=== PATIENT | female | born 1960 | race Caucasian/White ===

== ENCOUNTER 2024-05-12 12:42 | Outpatient (CLI) | payer BC, SELFPAY ==
--- NOTE | ~2024-05-12 | DEXA_ITS ---
Bone Density Report Name: JUANY VELASQUEZ Age: 63 Sex: Female Ethnicity: White Date of : 1960 Indication: postmenopausal; screening for osteoporosis; height loss; cancer; hysterectomy; Referring Provider: ASHLEY SCHMIDT Study: Bone densitometry was performed. Exam Date: May 12, 2024 Accession number: [id number] Bone Density: Region BMD T-score Z-score Classification AP Spine(L1-L4) 0.976 -0.6 1.1 Normal Femoral Neck (Left) 0.803 -0.4 1.1 Normal Total Hip (Left) 0.899 -0.4 0.9 Normal Femoral Neck (Right) 0.751 -0.9 0.6 Normal Total Hip (Right) 0.919 -0.2 1.0 Normal Total Hip Mean 0.909 -0.3 1.0 Normal World Health Organization criteria for BMD impression classify patients as: Normal (T-score at or above -1.0), Osteopenia (T-score between -1.0 and -2.5), or Osteoporosis (T-score at or below -2.5). 10-year Fracture Risk: FRAX not reported because: All T-scores for Spine Total, Hip Total, Femoral Neck at or above -1.0 Clinical Information Provided by Patient: Has used the following medications: HRT (i.e. estrogen/hormone therapy), Vitamin D, Calcium Has the following medical conditions: Cancer, Hysterectomy Patient maximum height was 63 Menopause Age: 57 No regular weight bearing exercise Does not regularly consume dairy products Drinks caffeinated beverages Onset of menses at age 11 Number of children 3 Impression: The patient has normal bone mass. Discussion: BONE DENSITY IS ABOVE THE MINIMUM DESIRABLE LEVEL AT ALL SKELETAL SITES TESTED. This patient?s bone mineral density is above the minimum desirable level (T-score -1.0 or better) at all sites measured. The patient should follow a healthful lifestyle (good nutrition with adequate calcium and vitamin D, and appropriate weight-bearing exercise). Follow-Up: Consider repeating this study in 5 years or sooner if there is some new clinical indication. Reported by: IVELISSE on 05/12/2024 1:14:00 PM. Reviewed, dictated and finalized at location [facility]
--- OUTSIDE RECORDS SUMMARY | 2024-05-12 12:51 | XMS_ITS ---
Author Organization [facility] Address [address] [place] [address] Care Team Providers Care Ivory Carver Name Role Phone Johnny Ibanez Primary Care Provider [phone] REASON FOR VISIT Lamictal Social History Sex Assigned At : Social History Observation Description Sex Assigned At Female Encounters Encounter Location Date Provider Diagnosis [address] [place] [address] 04/06/2024 Johnny Ibanez Plan Of Treatment No Information Progress Notes * Patricia VELASQUEZ HDOB: 0 (63 yo F)Acc No.[id number]:04/06/2024 Patient: Patricia MEHTA :1960 A ge:63 Y S ex:Female Address:[address] [place] [address], [address] * true * Date: Generated for Delfinai ng/Fatraceg/eTransmitting on: 0 05/12/2024 08:28 AM CONCRETE FLOATER
--- OUTSIDE RECORDS SUMMARY | 2024-05-12 12:51 | XMS_ITS | Encounter Summary ---
Author Organization [facility] Address [address] [place] [address] Care Team Providers Care Info Print Press Operator Name Role Phone Carly Villagomez HACKSAW INSPECTOR Primary Care Provider [phone] Encounter Details Date Type Department Care Team (Late st Contact Info) Description 02/24/2023 MyCCrossover Health Management Servicest Message Enc [facility] Medical Group Family and Sports Medicine - [place] [address] [place] [address] Carly Villagomez, HACKSAW INSPECTOR [address] [place] [address] RSV Injection Social History Tobacco Use Types Packs/Day Years Used Date Smoking Tobacco: Never Smokeless Tobacco: Never Alcohol Use Standard Drinks/Week Comments Not Currently 0 (1 standard drink = 0.6 oz pure alcohol) twice a year, 2 glasses of wine [facility] Utilities Answer Date Recorded In the past 12 months has [facility] [employer], gas, oil, or water [employer] threatened to shut off services in your home? No 02/21/2023 Humiliation, Afraid, Rape, and Kick questionnair e Answer Date Recorded Within the last year, have y ou been afraid of your partner or ex-partner? No 02/21/2023 Within the last year, have y ou been humiliated or emotionally abused in other ways by your partner or ex-partner? No Within the last year, have y ou been kicked, hit, slapped, or otherwise physically hurt by your partner or ex-partner? No 02/21/2023 Within the last year, have y ou been raped or forced to have any kind of sexual activity by your partner or ex-partner? No 02/21/2023 AUDIT-C Answer Date Recorded Frequency of Alcohol Consumption Never 06/27/2018 Average Number of Drinks Not on file 019 Frequency of Binge Drinking Not on file 06/04 Overall Financial Resource Strain (CARDIA) Answe r Date Recorded How hard is it for you to pa y for the very basics like food, housing, medical care, and heating? Not very hard 02/21/2023 PHQ-2 Answer Date Recorded Patient Health Questionnaire-2 Score 1 10/12/2022 Hunger Vital Sign Answer Date Recorded Within the past 12 months, y ou worried that your food would run out before you got the money to buy more. Never true 02/22/20 23 Within the past 12 months, t he food you bought just didn't last and you didn't have money to get more. Never true 02/21/2023 PRAPARE - Transportation Answer Date Re corded In the past 12 months, has l ack of transportation kept you from medical appointments or from getting medications? No 02/03 In the past 12 months, has l ack of transportation kept you from meetings, work, or from getting things needed for daily living? No 02/21/2023 Housing Stability Vital Sign Answer Ortiz e Recorded In the last 12 months, was t here a time when you were not able to pay the mortgage or rent on time? No 02/21/2023 In the last 12 months, how many places have you lived? 1 02/21/2023 In the last 12 months, was t here a time when you did not have a steady place to sleep or slept in a care home (including now)? No 02/21/2023 Comments No Sex and Gender Information Value Date Recorded Sex Assigned at Female 05/02/2024 10:36 AM GOLF COURSE ASSISTANT Legal Sex Female 7:53 PM CDT Gender Identity Not on file Sexual Orientation Not on file Occupation Industry Job Start Date Job End Date former professional volunteer with [employer] Not on blayne e Not on file Not on file documented as of this encounter Functional Status * Are you deaf or do you have serious difficulty hearing Answer Date of Assessment Author Status No 02/22/2023 12:00 PM Olga Ocasio RN Active * Are you blind or do you have serious difficulty seeing, even when wearing glasses? Answer Date of Assessment Author Status No 02/22/2023 12:00 PM Olga Ocasio RN Active * Do you have serious difficulty walking or climbing stairs? Answer Date of Assessment Author Status No 02/22/2023 12:00 PM Olga Ocasio RN Active * Do you have difficulty dressing or bathing? Answer Date of Assessment Author Status No 02/22/2023 12:00 PM Olga Ocasio RN Active * Because of a physical, mental, or emotional condition, do you have difficulty doing errands alone such as visiting a doctor's office or shopping? Answer Date of Assessment Author Status No 02/22/2023 12:00 PM Olga Ocasio RN Active documented as of this encounter Mental Status * Because of a physical, mental, or emotional condition, do you have serious difficulty concentrating, remembering, or making decisions? Answer Entry Date Author Status No 02/22/2023 12:00 PM Olga Ocasio RN Active documented in this encounter Plan of Treatment Upcoming Encounters Date Type Department Care Team (Late st Contact Info) Description 07/10/2024 11:20 AM CDT Office Visit [facility] Medical Group Multispecialty Care - [facility] [address] [place] [address] Rene Sage DO [address] [facility] [place] [address] 08/01/2024 12:30 PM CDT Appointment [facility] [address] [facility] [place] [address] Chay Marshall MD [address] [place] [address] 08/01/2024 1:30 PM CDT Appointment [facility] ONE [facility] [place] [address] Chay Marshall MD [address] [address] 09/26/2024 1:00 PM CDT Office Visit [facility] THREE [facility], [facility] [address] [place], [place] [address] Thien Cooper MD Three [facility]. [facility] [address] [place], [place] [address] documented as of this encounter Goals Goal Patient Goal Type Associated Problems Recent Progress Patient-Stated? Author Patient will return to prior living situation and remain independent in ADLs upon discharge from hospital Lifestyle No Andreea Thomas, TANDEM MILL ROLLER documented as of this encounter Visit Diagnoses Not on filedocumented in this encounter Additional Health Concerns Assessment Noted Time PHQ-9 Depression Total Score: 11 023 4:03 PM CDT documented as of this encounter Care Teams Info Print Press Operator Relationship Specialty Start Date End Date Carly Villagomez HACKSAW INSPECTOR [address] [place] [address] PCP - General Nurse Practitioner Family 11/02/16 documented as of this encounter
--- OUTSIDE RECORDS SUMMARY | 2024-05-12 12:51 | XMS_ITS | Encounter Summary ---
Author Organization [facility] Address [address] [place] [address] Care Team Providers Care Optical Dispenser Name Role Phone Carly Villagomez TELEVISION NEWS REPORTER Primary Care Provider [phone] Encounter Details Date Type Department Care Team (Late st Contact Info) Description 01/30/2022 MyCPieceMaker Technologiest Message Enc [facility] Medical Group Family and Sports Medicine - [place] [address] [place] [address] Carly Villagomez, TELEVISION NEWS REPORTER [address] [place] [address] Following up Social History Tobacco Use Types Packs/Day Years Used Date Smoking Tobacco: Never Smokeless Tobacco: Never Alcohol Use Standard Drinks/Week Comments Yes 1.7 (1 standard drink = 0.6 oz p ure alcohol) only on special occassions AUDIT-C Answer Date Recorded Frequency of Alcohol Consumption Never 06/27/2018 Average Number of Drinks Not on file 019 Frequency of Binge Drinking Not on file 06/04 PHQ-2 Answer Date Recorded PHQ-2 Score - If the patient scores above 3, please move on to questions 3-9 3 02/25/2021 Comments No Sex and Gender Information Value Date Recorded Sex Assigned at Female 05/02/2024 10:36 AM MOTION PICTURE CAMERA LENS TECHNICIAN Legal Sex Female 7:53 PM CDT Gender Identity Not on file Sexual Orientation Not on file COVID-19 Exposure Response Date Recorded In the last 10 days, have yo u been in contact with someone who was confirmed or suspected to have Coronavirus/COVID-19? No / Unsure 01/26/2022 11:32 AM CDT documented as of this encounter Plan of Treatment Upcoming Encounters Date Type Department Care Team (Late st Contact Info) Description 07/10/2024 11:20 AM CDT Office Visit [facility] Medical Group [facility] [address] [place] [address] Rene Sage DO [address] [place] [address] 08/01/2024 12:30 PM CDT Appointment [facility] [address] [facility] [place] [address] Chay Marshall MD 1414 [facility] [address] [place], [place] [address] 08/01/2024 1:30 PM CDT Appointment [facility] [address] Chay Marshall MD 1414 [facility] [address] [place], [place] [address] 09/26/2024 1:00 PM CDT Office Visit [facility] [address] [facility] [address], [place] [address] [place], [place] [address] Thien Cooper MD [facility] [address] [place], [place] [address] documented as of this encounter Visit Diagnoses Not on filedocumented in this encounter Additional Health Concerns Infection Onset Date Last Indicated Resolved Time COVID-19 Rule Out 08/25/2022 08/25/2022 08/26/2022 3:43 PM CDT COVID-19 Confirmed 08/25/2022 09/01/2022 12:32 AM CDT Assessment Noted Time PHQ-9 Depression Total Score: 12 021 2:23 PM MOTION PICTURE CAMERA LENS TECHNICIAN documented as of this encounter Care Teams Optical Dispenser Relationship Specialty Start Date End Date Carly Villagomez TELEVISION NEWS REPORTER [address] [place] [address] PCP - General Nurse Practitioner Family 11/02/16 documented as of this encounter
--- OUTSIDE RECORDS SUMMARY | 2024-05-12 12:51 | XMS_ITS | Encounter Summary ---
Author Organization [facility] Address [address] [place] [address] Care Team Providers Care Chief Digital Media Officer Name Role Phone Carly Villagomez TRACY Primary Care Provider [phone] Encounter Details Date Type Department Care Team (Late st Contact Info) Description 08/11/2023 Intrakr Message Enc [facility] THREE [address] [phone] Thien Cooper MD [address] [phone] Isosorbide Mononitrate Social History Tobacco Use Types Packs/Day Years Used Date Smoking Tobacco: Never Smokeless Tobacco: Never Alcohol Use Standard Drinks/Week Comments Not Currently 0 (1 standard drink = 0.6 oz pure alcohol) twice a year, 2 glasses of wine [facility] Utilities Answer Date Recorded In the past 12 months has [facility] [employer], gas, oil, or water [employer] threatened to shut off services in your [...] place to sleep or slept in a mcfp (including now)? No 02/21/2023 Comments No Sex and Gender Information Value Date Recorded Sex Assigned at Female 05/02/2024 10:36 AM CENTRAL PROCESSING TECH Legal Sex Female 7:53 PM CDT Gender [...] Ocasio RN Active documented in this encounter Progress Notes * RHONA Ribera - 08/11/2023 3:27 PM CDT Imdur is a very common drug to help with angina/chest pain. This was a trial drug to see if it would help her symptoms. MCDONALD is a very common side affect. This was discussed with her. Just like SL NTG.Some people have no issues. If she is having bad headaches from the drug, by all means she can stopit. documented in this encounter Plan of Treatment Upcoming Encounters Date Type Department Care Team (Late st Contact Info) Description 07/10/2024 11:20 AM CDT Office Visit [facility] Medical Group [facility] [address] [place] [address] Rene Sage DO [address] [place] [address] 08/01/2024 12:30 PM CDT Appointment [facility] [place] [address] Chay Marshall MD [facility] [address] [address] 08/01/2024 1:30 PM CDT Appointment [facility] [address] Chay Marshall MD [facility] [address] [address] 09/26/2024 1:00 PM CDT Office Visit [facility] [address] [facility] [address], [place] [address] [place] [address] Thien Cooper MD [facility] [address] [address] documented as of this encounter Goals Goal Patient Goal Type Associated Problems Recent Progress Patient-Stated? Author Patient will return to prior living situation and remain independent in ADLs upon discharge from hospital Lifestyle No Andreea Thomas, MAINFRAME SYSTEMS PROGRAMMER documented as of this encounter Visit Diagnoses Not on filedocumented in this encounter Additional Health Concerns Assessment Noted Time PHQ-9 Depression Total Score: 11 023 4:03 PM CDT documented as of this encounter Care Teams Chief Digital Media Officer Relationship Specialty Start Date End Date Carly Villagomez, PIPE AND BOILER COVERS SUPERVISOR [address] [place] [address], [place] [address] PCP - General Nurse Practitioner Family 11/02/16 documented as of this encounter
--- OUTSIDE RECORDS SUMMARY | 2024-05-12 12:51 | XMS_ITS ---
Author Organization [facility] Address [address] [place] [address] Care Team Providers Care Detailer School Photographs Name Role Phone Johnny Ibanez Primary Care Provider [phone] REASON FOR VISIT 6 Week Psych F/U & Med Refill Social History Sex Assigned At : Social History Observation Description Sex Assigned At Female Encounters Encounter Location Date Provider Diagnosis [address] [place] [address] 05/01/2024 Johnny Ibanez Plan Of Treatment No Information Progress Notes * RON Patricia HDOB: 0 (63 yo F)Acc No.[id number]:05/01/2024 UNLOCKED PROGRESS NOTE Patient: Patricia MEHTA Provider: Kelli Ibanez DNP, PMGALINDOP-BC :1960 A ge:63 Y S ex:Female Date:05/01/2024 Address:[address] [place], [place] [id number] Subjective: * Chief Complaints: * 1 . 6 Week Psych F/U & Med Refill. * Medical History: Objective: * Vitals: Assessment: Plan: * Treatment: * * Electronic signature of Johnny Ibanez APRN, [id number] on 05/12/2024 at 08:28 AM SERVICE ARCHITECT Sign off status: Pending * Provider: Kelli Ibanez DNP, PMHNP-BC Date: 0 05/01/2024 Generated for Nelson renner/Carissa/Luz Marina on: 0 05/12/2024 08:28 AM SERVICE ARCHITECT
--- OUTSIDE RECORDS SUMMARY | 2024-05-12 12:51 | XMS_ITS | Encounter Summary ---
Author Organization [facility] Address [address] [place] [address] Care Team Providers Care Supervisor Paper Products Name Role Phone HernandoCarly TRACY Primary Care Provider [phone] Encounter Details Date Type Department Care Team (Late st Contact Info) Description 07/15/2021 Kinkaa Search Tools Message Enc [facility], [address] [address] [facility] Provider results Social History Tobacco Use Types Packs/Day Years [...] Sex Assigned at Female 05/02/2024 10:36 AM ATTENUATOR Legal Sex Female 7:53 PM CDT Gender Identity Not on file Sexual Orientation Not on file COVID-19 Exposure Response Date Recorded In the last 10 days, have yo u been in contact with someone who was confirmed or suspected to have Coronavirus/COVID-19? No / Unsure 07/15/2021 1:58 PM CDT documented as of this encounter Plan of Treatment Upcoming Encounters Date Type Department Care Team (Late st Contact Info) Description 07/10/2024 11:20 AM CDT Office Visit [facility] Medical Group [facility] [address] [place] [address] Rene Sage DO [address] [place] [address] 08/01/2024 12:30 PM CDT Appointment [facility] [address] [place] [address] Chay Marshall MD [address] [address] 08/01/2024 1:30 PM CDT Appointment [facility] [address] [place] [address] Chay Marshall MD [facility] [address] [place], [place] [address] 09/26/2024 1:00 PM CDT Office Visit [facility] [address], [address] [place] [address] Thien Cooper MD [address] [facility] [address] [place], [place] [address] documented as of this encounter Visit Diagnoses Not on filedocumented in this encounter Additional Health Concerns Infection Onset Date Last Indicated Resolved Time COVID-19 Rule Out 01/26/2022 01/26/2022 01/26/2022 3:05 PM CDT COVID-19 Rule Out 01/26/2022 01/26/2022 01/27/2022 6:32 PM CDT COVID-19 Rule Out 08/25/2022 08/25/2022 08/26/2022 3:43 PM CDT COVID-19 Confirmed 08/25/2022 09/01/2022 12:32 AM CDT Assessment Noted Time PHQ-9 Depression Total Score: 12 021 2:23 PM ATTENUATOR documented as of this encounter Care Teams Supervisor Paper Products Relationship Specialty Start Date End Date Carly Villagomez NP [address] [place] [address] PCP - General Nurse Practitioner Family 11/02/16 documented as of this encounter
--- OUTSIDE RECORDS SUMMARY | 2024-05-12 12:51 | XMS_ITS | Encounter Summary ---
Author Organization [facility] Address [address] [place] [address] Care Team Providers Care Pasteurizer Helper Name Role Phone Carly Villagomez EMPLOYEE COMMUNICATIONS MANAGER Primary Care Provider [phone] Encounter Details Date Type Department Care Team (Late st Contact Info) Description 09/30/2021 MyChart Message Enc [facility] Medical Group Family and Sports Medicine - [place] [address] [place] [address] Carly Villagomez, EMPLOYEE COMMUNICATIONS MANAGER [address] [place] [address] Referral request Social History Tobacco Use Types Packs/Day Years [...] Sex Assigned at Female 05/02/2024 10:36 AM WIND TURBINE MECHANIC Legal Sex Female 7:53 PM CDT Gender Identity Not on file Sexual Orientation Not on file COVID-19 Exposure Response Date Recorded In the last 10 days, have phillip u been in contact with someone who was confirmed or suspected to have Coronavirus/COVID-19? No / Unsure 09/15/2021 1:49 AM CDT documented as of this encounter Progress Notes * Carly Villagomez NP - 10/01/2021 9:28 PM CDT OV documented in this encounter Plan of Treatment Upcoming Encounters Date Type Department Care Team (Late st Contact Info) Description 07/10/2024 11:20 AM CDT Office Visit [facility] Medical Group [facility]pecialty Care - [facility] [address] [facility] [place] [address] Rene Sage DO [address] [place] [address] 08/01/2024 12:30 PM CDT Appointment [facility] [address] [facility] [place] [address] Chay Marshall MD [facility] [address] [address] 08/01/2024 1:30 PM CDT Appointment [facility] [address] [facility] [address] Chay Marshall MD [facility] [address] [address] 09/26/2024 1:00 PM CDT Office Visit [facility] [address], [address] [address] [place] [address] Thien Cooper MD [address] [address] documented as of this encounter Visit Diagnoses [...] Depression Total Score: 12 021 2:23 PM WIND TURBINE MECHANIC documented as of this encounter Care Teams Pasteurizer Helper Relationship Specialty Start Date End Date Carly Villag[place] [address] PCP - General Nurse Practitioner Family 11/02/16 documented as of this encounter
--- OUTSIDE RECORDS SUMMARY | 2024-05-12 12:51 | XMS_ITS | Encounter Summary ---
Author Organization [facility] Address [address] [place] [address] Care Team Providers Care Postdoctoral Scholar Name Role Phone HernandoCarly TRACY Primary Care Provider [phone] Encounter Details Date Type Department Care Team (Late st Contact Info) Description 01/08/2022 Digital Domain Holdings Message Enc [facility], [address] [address] [place], [facility] Provider Results Social History Tobacco Use Types Packs/Day Years [...] Sex Assigned at Female 05/02/2024 10:36 AM INTERIOR ASSEMBLIES INSTALLER Legal Sex Female 7:53 PM CDT Gender Identity Not on file Sexual Orientation Not on file COVID-19 Exposure Response Date Recorded In the last 10 days, have yo u been in contact with someone who was confirmed or suspected to have Coronavirus/COVID-19? No / Unsure 01/07/2022 12:57 PM CDT documented as of this encounter Plan of Treatment Upcoming Encounters Date Type Department Care Team (Late st Contact Info) Description 07/10/2024 11:20 AM CDT Office Visit [facility] Medical Group [facility] [address] [place] [address] Rene Sage DO [address] [place] [address] 08/01/2024 12:30 PM CDT Appointment [facility] [address] [place] [address] Chay Marshall MD [address] [address] 08/01/2024 1:30 PM CDT Appointment [facility] [place] [address] Chay Marshall MD [facility] [address] [place], [place] [address] 09/26/2024 1:00 PM CDT Office Visit [facility] [address] [place] [address] Thien Cooper MD [address] [facility] [address] [place], [place] [address] documented as of this encounter Visit Diagnoses [...] Depression Total Score: 12 021 2:23 PM INTERIOR ASSEMBLIES INSTALLER documented as of this encounter Care Teams Postdoctoral Scholar Relationship Specialty Start Date End Date Carly Villagomez NP [address] [place] [address] PCP - General Nurse Practitioner Family 11/02/16 documented as of this encounter
--- OUTSIDE RECORDS SUMMARY | 2024-05-12 12:51 | XMS_ITS ---
Author Organization [facility] Address [address] [place] [address] Care Team Providers Care Boot Liner Maker Name Role Phone Johnny Ibanez Primary Care Provider [phone] Allergies Allergen (clinical drug ingredient) Drug/Non Drug Allergy documented on EMR Reaction Allergy Type Onset Date Status Effexor Unknown Drug Allergy Active nisoldipine Sular Unknown Drug Allergy Activ e carbamazepine Tegretol Unknown Drug Allergy Act allison tramadol Tramadol Unknown Drug Allergy Active trazodone Trazodone Unknown Drug Allergy Active REASON FOR VISIT last seen 11/10/23--2 month f u Medications Medication SIG (Take, Route, Frequency, Duration) Notes Start Date End Date Status lamoTRIgine 150 MG 1 tablet twice a day for 30 days Active diazePAM 2 MG 1 tablet as needed Orally twice a day for 30 days As needed for severe anxiety or panic attacks 02/22/2024 Active Eliquis 5 MG 1 tablet Orally Tw e a day 02/21/2023 Active Tamoxifen Citrate 10 MG 1 tablet Orally Twice a day Active Metoprolol Tartrate 25 MG 1 tablet with food Orally Twice a day 02/21/2023 Active Megestrol Acetate 40 MG 1 tablet Orally Four times a day Not-Taking Potassium Chloride ER 10 MEQ 1 tablet with food Orally once per day for 30 day(s) Active HYDROcodone-Acetaminophen 5-325 MG 1 tablet as needed Orally every 6 hrs Active Lurasidone HCl 20 MG 0.5 tablet in the evening with food Orally Once a day for 30 days 02/22/2024 Active DULoxetine HCl 30 MG 1 capsule twice a d ay for 30 days Active Furosemide 20 MG 1 tablet Orally Once a day for 30 day(s) Active Nitroglycerin 0.4 MG as directed Sublingual Active DULoxetine HCl 30 MG 1 capsule Orally Tw ice a day for 30 days 08/17/2023 Active Ezetimibe 10 MG 1 tablet Orally Once a day for 30 day(s) Active Aspirin 81 MG 1 tablet Orally Once a day for 30 day(s) Active Rosuvastatin Calcium 40 MG 1 tablet Oral ly Once a day for 30 day(s) Active Social History Sex Assigned At : Social History Observation Description Sex Assigned At Female Problems Problem Type SNOMED Code ICD Code Onset Dates Problem Status W/U Status Risk Notes Problem Generalized anxiety disorder (62743295) TRACE (generalized anxiety disorder) (F41.1) Active confirmed Encounters Encounter Location Date Provider Diagnosis [address] [place] [address] 02/22/2024 Johnny Ibanez Bipolar II disorder F31.81 and TRACE (generalized anxiety disorder) F41.1 Assessments Encounter Date Diagnosis (ICD Code) Assessment Notes Treatment Notes Treatment Clinical Notes Section Notes 02/22/2024 Bipolar II disorder (ICD-10 - F31.81) Client with high levels of anxiety regarding medical health issues (ongoing) r/t cancer and tx surrounding it and her chronic back pain. Discussed starting low dose lurasidone as she was doing well with anxiety on olanzapine for many years but was taken off due to wt gain. Client open to this and starting at low dose 10 mg. Rescue anxiety med of diazepam 2 mg BID PRN written for as client goes through process of applying for back stimulator and the anxiety surrounding this. 02/22/2024 TRACE (generalized anxiety disorder) (ICD-10 - F41.1) Client with high levels of anxiety regarding medical health issues (ongoing) r/t cancer and tx surrounding it and her chronic back pain. Discussed starting low dose lurasidone as she was doing well with anxiety on olanzapine for many years but was taken off due to wt gain. Client open to this and starting at low dose 10 mg. Rescue anxiety med of diazepam 2 mg BID PRN written for as client goes through process of applying for back stimulator and the anxiety surrounding this. 02/22/2024 Other Discussed sleep hygiene and caffeine intake with encouragement to limit electronic devices an hour before bed and to limit caffeine after 3:00pm. Exercise benefits for mood and health discussed. Psychoeducation regarding psychiatric illness provided. Client was educated about risks and benefits of medication, alternatives to medication, off label uses of medication, suicidal ideation with SSRIs, self-administrati on and compliance with medication along with how to safely store medication. Verbal informed consent obtained. Client agrees to return sooner if symptoms worsen or if suicidal or homicidal ideations occur. Client has the phone number to the 24-hour crisis line at [facility]. Questions addressed. Client verbalized understanding of all information and is agreeable to treatment plan. Client with high levels of anxiety regarding medical health issues (ongoing) r/t cancer and tx surrounding it and her chronic back pain. Discussed starting low dose lurasidone as she was doing well with anxiety on olanzapine for many years but was taken off due to wt gain. Client open to this and starting at low dose 10 mg. Rescue anxiety med of diazepam 2 mg BID PRN written for as client goes through process of applying for back stimulator and the anxiety surrounding this. Plan Of Treatment Medication Medication Name Sig Start Date Stop Date Notes lamoTRIgine 150 MG 1 tablet twice a day for 30 days diazePAM 2 MG 1 tablet as needed O rally twice a day for 30 days 02/22/2024 Lurasidone HCl 20 MG 0.5 tablet in the e vening with food Orally Once a day for 30 days 02/22/2024 DULoxetine HCl 30 MG 1 capsule Orally Tw ice a day for 30 days 08/17/2023 Treatment Notes Assessment Notes Other Discussed sleep hygi alyssa and caffeine intake with encouragement to limit electronic devices an hour before bed and to limit caffeine after 3:00pm. Exercise benefits for mood and health discussed. Psychoeducation regarding psychiatric illness provided. Client was educated about risks and benefits of medication, alternatives to medication, off label uses of medication, suicidal ideation with SSRIs, self-administration and compliance with medication along with how to safely store medication. Verbal informed consent obtained. Client agrees to return sooner if symptoms worsen or if suicidal or homicidal ideations occur. Client has the phone number to the 24-hour crisis line at [facility]. Questions addressed. Client verbalized understanding of all information and is agreeable to treatment plan. Next Appt Details Follow Up: 6 Weeks, Reason: Medication management - can be telehealth appt. or in office appt. Progress Notes * Patricia VELASQUEZ HDOB: 0 (63 yo F)Acc No.[id number]:02/22/2024 Patient: Patricia MEHTA Provider: Kelli Ibanez DNP, PMHNP- :1960 A ge:63 Y S ex:Female Date:02/22/2024 Address:[address] [place], [place] [id number] Subjective: * Chief Complaints: * L ast seen 11/10/23--2 month f u * HPI: I nterim History: Emergency room visit Y es. W as hospitalized N o.? D epression Screening: PHQ-9 L ittle interest or pleasure in doing things S everal days, F eeling down, depressed, or hopeless S everal days, T rouble falling or staying asleep, or sleeping too much S everal days, F eeling tired or having little energy S everal days, P oor appetite or overeating N ot at all, F eeling bad about yourself or that you are a failure, or have let yourself or your family down S everal days, T rouble concentrating on things, such as reading the newspaper or watching television S everal days, M oving or speaking so slowly that other people could have noticed; or the opposite, being so fidgety or restless that you have been moving around a lot more than usual N ot at all, T houghts that you would be better off or of hurting yourself in some way N ot at all, T otal Score?6, I nterpretation M ild Depression. C SSRS Interpretation and Follow Up Plan: CSSRS Interpretation and Follow Up Plan. CSSRS Interpretation and Follow Up Plan M oderate or High risk requires selection of a follow up plan C SSRS No/Low: intervention not needed at this time.? C onstitutional: Session conducted telephonically with client's consent. The patient has been dealing with two major health issues over the past couple of months. 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 This has caused her kidney to take five times longer to empty into the bladder. Her doctors initially referred to the growth as cancer, but the client states that later it was not referred to ast this. The patient has been consulting with various doctors to figure out what to do. One doctor suggested placing a stent in her ureter, which would need to be replaced every three to six months. However, the patient is not comfortable with this idea and has been looking for other options. The second issue is chronic back pain, which started after a fall in 2019. The patient has been seeing a pain management doctor who has been giving her nerve blocks. However, the relief from these blocks has been temporary and inconsistent. The doctor has now decided to close her case and refer her to a outside plant supervisor. In the meantime, the patient has been managing her pain with Tylenol, as she is on Eliquis and cannot take other pain medications. Recently, a hostess party sales representative from [employer] suggested a spinal column stimulator as a potential solution for her back pain. The device would send electrical stimuli to the nerves where the pain is located, blocking the pain signals. However, the patient would need to pass a psychological test to determine if she can handle the process and recovery. The patient is interested in this option but is concerned about her anxiety, which has been increasing due to her health issues. Client states her family settled now into [facility] one floor home for a while and that her and son. That she has been getting settled in it. That this was really exciting and that she feels really happy about it. But regardless it was still pretty stressful. That she hadn't moved in decades. Denies SI/HI, +mild depression at times, moderate to high anxiety at times, denies hallucinations/paranoia. 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 Lives with and 36 yo son. 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 [place] she was sleeping too much and was fatigued during the day. All psychiatric medications changed to split BID dosing and this has helped client quite a bit . Still occasionally has thoughts that she would rather be than go through treatment but feels these have lessened. Is doing a support group for her type of cancer on Face[employer] and is finding this helpful. Was on lithium in the past and stopped due to shaking. * ROS: P sych ROS: Constitutional R eports, h x cancer- received radiation . E yes R eports, h x glaucoma and detatched retina; hx of multiple eye surgeries .?Ears/Nose/Mouth/Throat R eports. G U R eports, h ysterectomy, recently dx uterine ca with mets (feb, 2022). M usculoskeletal R eports, a rthritis, damaged discs (dx november 2021). * PSYCH ROS2: Elevated mood symptoms D enies. m ood swings D enies. T houghts of self harm D enies. D enies H omicidal thoughts. A dmits A nxiety, t hat is moderate to moderately severe at times. D enies A uditory/visual hallucinations. D enies D elusions. A dmits D epressed mood, w hich is mild. A dmits S tressors, h ealth. D enies S ubstance abuse. D enies S uicidal thoughts. * Medical History: * Surgical History: h ysterectomy for cancer 2018 * Hospitalization/Major Diagno stic Procedure: h ysterectomy for cancer 2018 * Family History: F ather: alive. M other: alive. 3 brother(s) , 1 sister(s) - healthy. 2 son(s) , 1 daughter(s) - healthy. . * Social History: P rimary Social History: L iving Arrangement L iving Arrangement: I ndependent Living, Dependent Living, L iving with: O ther:, I s this a supportive environment? Y es. A lcohol Use A lcohol Use Frequency: N ever. I llicit Substance Usage I llicit Substance Usage: N o.?Employment Status E mployment Status: U nemployed. * Medications: T akingTamoxifen Citrate 10 MG Tablet 1 tablet Orally Twice a day Metoprolol Tartrate 25 MG Tablet 1 tablet with food Orally Twice a day Eliquis 5 MG Tablet 1 tablet Orally Twice a day Rosuvastatin Calcium 40 MG Tablet 1 tablet Orally Once a day Ezetimibe 10 MG Tablet 1 tablet Orally Once a day Aspirin 81 MG Tablet Delayed Release 1 tablet Orally Once a day Furosemide 20 MG Tablet 1 tablet Orally Once a day Nitroglycerin 0.4 MG Tablet Sublingual as directed Sublingual Potassium Chloride ER 10 MEQ Tablet Extended Release 1 tablet with food Orally once per day HYDROcodone-Acetaminophen 5-325 MG Tablet 1 tablet as needed Orally every 6 hrs DULoxetine HCl 30 MG Capsule Delayed Release Particles 1 capsule Orally Twice a day DULoxetine HCl 30 MG Capsule Delayed Release Particles 1 capsule twice a day lamoTRIgine 150 MG Tablet 1 tablet twice a day Taking Tamoxifen Citrate 10 MG Tablet 1 tablet Orally Twice a day Taking Metoprolol Tartrate 25 MG Tablet 1 tablet with food Orally Twice a day Taking Eliquis 5 MG Tablet 1 tablet Orally Twice a day Taking Rosuvastatin Calcium 40 MG Tablet 1 tablet Orally Once a day Taking Ezetimibe 10 MG Tablet 1 tablet Orally Once a day Taking Aspirin 81 MG Tablet Delayed Release 1 tablet Orally Once a day Taking Furosemide 20 MG Tablet 1 tablet Orally Once a day Taking Nitroglycerin 0.4 MG Tablet Sublingual as directed Sublingual Taking Potassium Chloride ER 10 MEQ Tablet Extended Release 1 tablet with food Orally once per day Taking HYDROcodone-Acetaminophen 5-325 MG Tablet 1 tablet as needed Orally every 6 hrs Taking DULoxetine HCl 30 MG Capsule Delayed Release Particles 1 capsule Orally Twice a day Taking DULoxetine HCl 30 MG Capsule Delayed Release Particles 1 capsule twice a day Taking lamoTRIgine 150 MG Tablet 1 tablet twice a day Not- TakingMegestrol Acetate 40 MG Tablet 1 tablet Orally Four times a day Not-Taking Megestrol Acetate 40 MG Tablet 1 tablet Orally Four times a day * Allergies: T ramadolTrazodoneEffexorSularTegretolno[Allergies Verified] Objective: * Vitals: * Examination: G eneral Examination: Mental Status Exam . Assessment: * Assessment: 1. B ipolar II disorder - F31.81 (Primary) 2 . G AD (generalized anxiety disorder) - F41.1 Client with high levels of a nxiety regarding medical health issues (ongoing) r/t cancer and tx surrounding it and her chronic back pain. Discussed starting low dose lurasidone as she was doing well with anxiety on olanzapine for many years but was taken off due to wt gain. Client open to this and starting at low dose 10 mg. Rescue anxiety med of diazepam 2 mg BID PRN written for as client goes through process of applying for back stimulator and the anxiety surrounding this. Plan: * Treatment: 2. G AD (generalized anxiety disorder) Start diazePAM Tablet, 2 MG, 1 tablet as needed, Orally, twice a day As needed for severe anxiety or panic attacks, 30 days, 60 Tablet, Refills 1. 3. O thers Notes: Discussed sleep hygiene and caffeine intake with encouragement to limit electronic devices an hour before bed and to limit caffeine after 3:00pm. Exercise benefits for mood and health discussed. Psychoeducation regarding psychiatric illness provided. Client was educated about risks and benefits of medication, alternatives to medication, off label uses of medication, suicidal ideation with SSRIs, self-administration and compliance with medication along with how to safely store medication. Verbal informed consent obtained. Client agrees to return sooner if symptoms worsen or if suicidal or homicidal ideations occur. Client has the phone number to the 24-hour crisis line at [facility]. Questions addressed. Client verbalized understanding of all information and is agreeable to treatment plan.? * Recommended Wellness and Pre vention Guidelines: * S tatus A lert L ast Done N ext Due A ction Taken N ONCOMPLIANT B reast cancer screening - 1 04/23/2023 - N ONCOMPLIANT C ervical cancer screening - 1 04/23/2023 - N ONCOMPLIANT C olorectal cancer screening - 1 04/23/2023 - N ONCOMPLIANT H IV screening - 1 04/23/2023 - * Procedure Codes: * Follow Up: 6 Weeks (Reason: Medication management - can be telehealth appt. or in office appt.) * * FOUNDER [employer] CEO Sign off status: Completed true * Provider: Kelli Ibanez DNP, PMHNP- Date: 04/23/2023 Generated for Nelson renner/Carissa/Britneyitting on: 0 05/12/2024 12:51 PM CO FOUNDER AND CEO History and Physical Notes * HPI (History of Present Illness) Category Sub-Category Detail Notes Category Not es Interim History Was hospitalized No Emergency room visit Yes Depression Screening PHQ-9 Little inte rest or pleasure in doing things: Several days Feeling down, depressed, or hopeless: Se veral days Trouble falling or staying asleep, or sl eeping too much: Several days Feeling tired or having little energy: S everal days Poor appetite or overeating: Not at all Feeling bad about yourself o r that you are a failure, or have let yourself or your family down: Several days Trouble concentrating on thi ngs, such as reading the newspaper or watching television: Several days Moving or speaking so slowly that other people could have noticed; or the opposite, being so fidgety or restless that you have been moving around a lot more than usual: Not at all Thoughts that you would be b abbe off or of hurting yourself in some way: Not at all Total Score: 6 Interpretation: Mild Depression Do Not Use CSSRS Interpretation and Follow Up Plan CSSRS Interpretation and Follow Up Plan Moderate or High risk requires selection of a follow up plan: CSSRS No/Low: intervention not needed at this time Examination Category Sub-Category Detail Notes Category Not es General Examination Mental Status Exam Attitude and Behavior: Cooperative Mood: Stable, Euthymic, Anxious Affect: Broad/Full Speech: Appropriate Thought Process: Coherent and Goal Direc presley Hallucinations: Denies Thought Content: Appropriate Delusions: None Evident or Identified Suicidal Ideation: Denies Current Though ts/Plans Homicidal Ideation: Denies Current Inten t Insight: Appropriate Judgement: Appropriate Sensorium and Cognition: Alert Oriented to: Person, Place, Time Memory: Intact Attention and Concentration: No Deficits Fund of Knowledge: Good
--- OUTSIDE RECORDS SUMMARY | 2024-05-12 12:51 | XMS_ITS | Encounter Summary ---
Author Organization [facility] Address [address] [place] [address] Care Team Providers Care Therapeutic Radiologist Name Role Phone Carly Villagomez TRACY Primary Care Provider [phone] Encounter Details Date Type Department Care Team (Late st Contact Info) Description 01/07/2021 Digital Map Products Message Enc [facility], [address] [address] Amari Koch MD,PHD RE: Medication Questions Social History Tobacco Use Types Packs/Day Years Used Date Smoking Tobacco: Never Smokeless Tobacco: Never Alcohol Use Standard Drinks/Week Comments Yes 0 (1 standard drink = 0.6 oz pur e alcohol) social AUDIT-C Answer Date Recorded Frequency of Alcohol Consumption Never 06/27/2018 Average Number of Drinks Not on file 019 Frequency of Binge Drinking Not on file 06/04 PHQ-2 Answer Date Recorded PHQ-2 Score - If the patient scores above 3, please move on to questions 3-9 2 12/12/2019 Comments No Sex and Gender Information Value Date Recorded Sex Assigned at Female 05/02/2024 10:36 AM ELECTRICAL ENGINEERING DIRECTOR Legal Sex Female 7:53 PM CDT Gender Identity Not on file Sexual Orientation Not on file COVID-19 Exposure Response Date Recorded In the last month, have you been in contact with someone who was confirmed or suspected to have Coronavirus / COVID-19? No / Unsure 01/07/2021 2:05 PM CDT documented as of this encounter Progress Notes * Amari Koch MD,PHD - 01/07/2021 4:53 PM CDT Continue per retinologist * Maddie Gonzalez RN - 01/07/2021 4:22 PM CDT Please advise. documented in this encounter Plan of Treatment Upcoming Encounters Date Type Department Care Team (Late st Contact Info) Description 07/10/2024 11:20 AM CDT Office Visit [facility] - [facility] [address] [place] [address] Rene Sage DO [address] [place] [address] 08/01/2024 12:30 PM CDT Appointment [facility] [address] [place] [address] Chay Marshall MD [facility] [address] 08/01/2024 1:30 PM CDT Appointment [facility] [address] [place] [address] Chay Marshall MD [facility] [address] [id number] 09/26/2024 1:00 PM CDT Office Visit [facility] [address] [address] Thien Cooper MD [address] [address] documented as of this encounter Visit Diagnoses [...] Assessment Noted Time PHQ-9 Depression Total Score: 9 12/12/19 20 4:38 PM CDT documented as of this encounter Care Teams Therapeutic Radiologist Relationship Specialty Start Date End Date Carly Villagomez NP [address] [place] [address] PCP - General Nurse Practitioner Family 11/02/16 documented as of this encounter
--- OUTSIDE RECORDS SUMMARY | 2024-05-12 12:51 | XMS_ITS | Encounter Summary ---
Author Organization [facility] Address [address] [place] [address] Care Team Providers Care Stripper Opaquer Name Role Phone Carly Villagomez TRACY Primary Care Provider [phone] Encounter Details Date Type Department Care Team (Late st Contact Info) Description 05/31/2017 Abstract [facility] CON[facility] [address] [place] [address] , Generic Conversion, Social History Tobacco Use Types Packs/Day Years Used Date Smoking Tobacco: Never Assessed Comments Unknown Sex and Gender Information Value Date Recorded Sex Assigned at Female 05/02/2024 10:36 AM TRAVEL REGISTERED NURSE PACU Legal Sex Female 7:53 PM CDT Gender Identity Not on file Sexual Orientation Not on file documented as of this encounter Plan of Treatment Upcoming Encounters Date Type Department Care Team (Late st Contact Info) Description 07/10/2024 11:20 AM CDT Office Visit [facility] Multispecialty Care - [facility] [address] [place] [address] Rene Sage DO [address] [place] [address] 08/01/2024 12:30 PM CDT Appointment [facility] [place] [address] Chay Marshall MD [address] [id number] 08/01/2024 1:30 PM CDT Appointment [facility] [address] Chay Marshall MD [address] [address] 09/26/2024 1:00 PM CDT [facility], [address] [address] Thien Cooper MD Three [facility]. [address] [address] documented as of this encounter Visit Diagnoses Not on filedocumented in this encounter Additional Health Concerns Infection Onset Date Last Indicated Resolved Time COVID-19 Rule Out 01/26/2022 01/26/2022 01/26/2022 3:05 PM CDT COVID-19 Rule Out 01/26/2022 01/26/2022 01/27/2022 6:32 PM CDT COVID-19 Rule Out 08/25/2022 08/25/2022 08/26/2022 3:43 PM CDT COVID-19 Confirmed 08/25/2022 09/01/2022 12:32 AM CDT documented as of this encounter Care Teams Stripper Opaquer Relationship Specialty Start Date End Date Carly Villagomez NP [address] [place] [address] PCP - General Nurse Practitioner Family 11/02/16 documented as of this encounter
--- OUTSIDE RECORDS SUMMARY | 2024-05-12 12:51 | XMS_ITS | Encounter Summary ---
Author Organization [facility] Address [address] [place] [address] Care Team Providers Care Share Dairy Farmer Name Role Phone Hernando Carly Garcia NP Primary Care Provider [phone] Encounter Details Date Type Department Care Team (Late st Contact Info) Description 03/04/2023 AppAddictive Message Enc [facility] Medical Group Family and Sports Medicine - [place] [address] Charles, [facility] Provider Chun Social History Tobacco Use Types Packs/Day Years Used Date Smoking Tobacco: Never Smokeless Tobacco: Never Alcohol Use Standard Drinks/Week Comments Not Currently 0 (1 standard drink = 0.6 oz pure alcohol) twice a year, 2 glasses of wine [facility] Utilities Answer Date Recorded In the past 12 months has [facility] [employer], oil, or water [employer] threatened to shut off services in your [...] place to sleep or slept in a senior living (including now)? No 02/21/2023 Comments No Sex and Gender Information Value Date Recorded Sex Assigned at Female 05/02/2024 10:36 AM ELECTRONICS DESIGN ENGINEER Legal Sex Female 7:53 PM CDT Gender [...] Description 07/10/2024 11:20 AM CDT Office Visit [facility] Medical Group Multispecialty Care - [place] [address] [facility] [place] [address] Rene Sage DO [address] [place] [address] 08/01/2024 12:30 PM CDT Appointment [facility] [address] [place] [address] Chay Marshall MD [address] [place] [address] 08/01/2024 1:30 PM CDT Appointment [facility] [place] [address] Chay Marshall MD 14[address] [facility] 330 [place], [place] [address] 09/26/2024 1:00 PM CDT Office Visit [facility] [address] [facility], [facility] [address] [place], [place] [address] Thien Cooper MD Three [facility]. [facility] [address] [place], [place] [address] documented as of this encounter Goals Goal Patient Goal Type Associated Problems Recent Progress Patient-Stated? Author Patient will return to prior living situation and remain independent in ADLs upon discharge from hospital Lifestyle No Andreea Thomas MSW documented as of this encounter Visit Diagnoses Not on filedocumented in this encounter Additional Health Concerns Assessment Noted Time PHQ-9 Depression Total Score: 11 023 4:03 PM CDT documented as of this encounter Care Teams Share Dairy Farmer Relationship Specialty Start Date End Date Carly Villagomez NP [address] [place] [address] PCP - General Nurse Practitioner Family 11/02/16 documented as of this encounter
--- OUTSIDE RECORDS SUMMARY | 2024-05-12 12:51 | XMS_ITS | Encounter Summary ---
Author Organization [facility] Address [address] [place] [address] Care Team Providers Care Electrical Maintenance Mechanic Name Role Phone Carly Villagomez AUTOMATIC I THREADING MACHINE FEEDER Primary Care Provider [phone] Encounter Details Date Type Department Care Team (Late st Contact Info) Description 04/28/2022 MyChart Message Enc [facility] Medical Group Family and Sports Medicine - [place] [address] [place] [address] Carly Villagomez, AUTOMATIC I THREADING MACHINE FEEDER [address] [place] [address] Post-biopsy Social History Tobacco Use Types Packs/Day Years [...] Sex Assigned at Female 05/02/2024 10:36 AM BARREL DRAINER Legal Sex Female 7:53 PM CDT Gender Identity Not on file Sexual Orientation Not on file COVID-19 Exposure Response Date Recorded In the last 10 days, have yo u been in contact with someone who was confirmed or suspected to have Coronavirus/COVID-19? No / Unsure 04/21/2022 12:49 PM BARREL DRAINER documented as of this encounter Plan of Treatment Upcoming Encounters Date Type Department Care Team (Late st Contact Info) Description 07/10/2024 11:20 AM CDT Office Visit [facility] Medical Group Multispecialty Care - [facility]'s [address] [place] [address] Rene Sage DO [address] [place] [address] 08/01/2024 12:30 PM CDT Appointment [facility] [address] [facility] [address] Chay Marshall MD [address] [facility] [address] [place], [place] [address] 08/01/2024 1:30 PM CDT Appointment [facility] [address] [address] Chay Marshall MD [address] [facility] [address] [place], [place] [address] 09/26/2024 1:00 PM CDT Office Visit [facility] [address] [facility] [address], [address] [place], [place] [address] Thien Cooper MD Three [facility] [address] [address] [place], [place] [address] documented as of this encounter Visit Diagnoses Not on filedocumented in this encounter Additional Health Concerns Infection Onset Date Last Indicated Resolved Time COVID-19 Rule Out 08/25/2022 08/25/2022 08/26/2022 3:43 PM CDT COVID-19 Confirmed 08/25/2022 09/01/2022 12:32 AM CDT Assessment Noted Time PHQ-9 Depression Total Score: 12 021 2:23 PM BARREL DRAINER documented as of this encounter Care Teams Electrical Maintenance Mechanic Relationship Specialty Start Date End Date Carly Villagomez AUTOMATIC I THREADING MACHINE FEEDER [address] [place] [address] PCP - General Nurse Practitioner Family 11/02/16 documented as of this encounter
--- OUTSIDE RECORDS SUMMARY | 2024-05-12 12:51 | XMS_ITS | Encounter Summary ---
Author Organization [facility] Address [address] [place] [address] Care Team Providers Care Decision Support Analyst Name Role Phone Carly Villagomez REPROGRAPHICS ASSOCIATE Primary Care Provider [phone] Encounter Details Date Type Department Care Team (Late st Contact Info) Description 06/22/2023 MyCInfotone Communicationst Message Enc [facility] Medical Group Family and Sports Medicine - [place] [address] [place] [address] Carly Villagomez, REPROGRAPHICS ASSOCIATE [address] [place] [address] report Social History Tobacco Use Types Packs/Day Years Used Date Smoking Tobacco: Never Smokeless Tobacco: Never Alcohol Use Standard Drinks/Week Comments Not Currently 0 (1 standard drink = 0.6 oz pure alcohol) twice a year, 2 glasses of wine [facility] Utilities Answer Date Recorded In the past 12 months has [facility] [employer], gas, oil, or water [employer] [place] threatened to shut off services in your [...] place to sleep or slept in a retirement (including now)? No 02/21/2023 Comments No Sex and Gender Information Value Date Recorded Sex Assigned at Female 05/02/2024 10:36 AM MACHINE FANCY STITCHER Legal Sex Female 7:53 PM CDT Gender [...] Description 07/10/2024 11:20 AM CDT Office Visit [facility] Medical Group [facility]ty Care - [facility] [address] [facility] [address] [place] [address] Rene Sage DO [address] [facility] [address] [place] [address] 08/01/2024 12:30 PM CDT Appointment [facility] [address] [facility] [address] [address] Chay Marshall MD [address] [place] [address] 08/01/2024 1:30 PM CDT Appointment [place] [address] [facility] [place], [place] [address] Chay Marshall MD 1414 [facility] 330 [place], [place] [address] 09/26/2024 1:00 PM CDT Office Visit [facility] THREE [facility] [address] [place], [place] [address] Thien Cooper MD Three [facility]. [facility] [address] [place], [place] [address] documented as of this encounter Goals Goal Patient Goal Type Associated Problems Recent Progress Patient-Stated? Author Patient will return to prior living situation and remain independent in ADLs upon discharge from hospital Lifestyle No Andreea Thomas, ZIGZAG STITCHER documented as of this encounter Visit Diagnoses Not on filedocumented in this encounter Additional Health Concerns Assessment Noted Time PHQ-9 Depression Total Score: 11 023 4:03 PM CDT documented as of this encounter Care Teams Decision Support Analyst Relationship Specialty Start Date End Date Carly Villagomez REPROGRAPHICS ASSOCIATE [address] [place] [address] PCP - General Nurse Practitioner Family 11/02/16 documented as of this encounter
--- OUTSIDE RECORDS SUMMARY | 2024-05-12 12:51 | XMS_ITS | Encounter Summary ---
Author Organization [facility] Address [address] [place] [address] Care Team Providers Care Plastics Factory Worker Name Role Phone VillagomezCarly TRACY Primary Care Provider [phone] Encounter Details Date Type Department Care Team (Late st Contact Info) Description 03/03/2023 Digital Vega Message Enc [facility] THREE [facility], [address] [address] Thien Cooper MD [address] [phone] Tylenol or Ibuprofen Social History Tobacco Use Types Packs/Day Years Used Date Smoking Tobacco: Never Smokeless Tobacco: Never Alcohol Use Standard Drinks/Week Comments Not Currently 0 (1 standard drink = 0.6 oz pure alcohol) twice a year, 2 glasses of wine [facility] Utilities Answer Date Recorded In the past 12 months has [facility] electric, gas, oil, or water company threatened to shut off services in your [...] place to sleep or slept in a alf (including now)? No 02/21/2023 Comments No Sex and Gender Information Value Date Recorded Sex Assigned at Female 05/02/2024 10:36 AM GRADUATE CIVIL ENGINEER Legal Sex Female 7:53 PM CDT [...] Description 07/10/2024 11:20 AM CDT Office Visit [facility] Medical [facility]ialty Care - [facility] [address] [place] [address] Rene Sage, [address] [facility] [address] [place], [place] [address] 08/01/2024 12:30 PM CDT Appointment [facility] [address] [facility] [address] [place], [place] [address] Chay Marshall MD [address] [place] [address] 08/01/2024 1:30 PM CDT Appointment [facility]ound ONE [place], [place] [address] Chay Marshall MD 1414 [facility] 330 [place], [place] [address] 09/26/2024 1:00 PM CDT Office Visit [facility] THREE [facility], [facility] 1800 [place], [place] [address] Thien Cooper MD Three [facility]. [facility] [address] [place], [place] [address] documented as of this encounter Goals Goal Patient Goal Type Associated Problems Recent Progress Patient-Stated? Author Patient will return to prior living situation and remain independent in ADLs upon discharge from hospital Lifestyle No Andreea Thomas, EQUIPMENT LEAD documented as of this encounter Visit Diagnoses Not on filedocumented in this encounter Additional Health Concerns Assessment Noted Time PHQ-9 Depression Total Score: 11 023 4:03 PM CDT documented as of this encounter Care Teams Plastics Factory Worker Relationship Specialty Start Date End Date Carly Villagomez NP 6[address] [place] [address] PCP - General Nurse Practitioner Family 11/02/16 documented as of this encounter
--- OUTSIDE RECORDS SUMMARY | 2024-05-12 12:51 | XMS_ITS | Patient Health Record ---
Author Organization [facility] Address [address] [place] [address] Care Team Providers Care Client Administrator Name Role Phone Johnny Ibanez Primary Care Provider Allergies Allergen (clinical drug ingredient) Drug/Non Drug Allergy documented on EMR Reaction Allergy Type Onset Date Status Effexor Unknown Drug Allergy Active nisoldipine Sular Unknown Drug Allergy Activ e carbamazepine Tegretol Unknown Drug Allergy Act allison tramadol Tramadol Unknown Drug Allergy Active trazodone Trazodone Unknown Drug Allergy Active Reason For Referral No Information Medications Medication SIG (Take, Route, Frequency, Duration) Notes Start Date End Date Status Megestrol Acetate 40 MG 1 tablet Orally Four times a day Not-Taking lamoTRIgine 150 MG 1 tablet twice a day for 30 days Active Potassium Chloride ER 10 MEQ 1 tablet with food Orally once per day for 30 day(s) Active HYDROcodone-Acetaminophen 5-325 MG 1 tablet as needed Orally every 6 hrs Active Furosemide 20 MG 1 tablet Orally Once a day for 30 day(s) Active Lurasidone HCl 20 MG 0.5 tablet in the evening with food Orally Once a day for 30 days 02/22/2024 Active diazePAM 2 MG 1 tablet as needed Orally twice a day for 30 days As needed for severe anxiety or panic attacks 02/22/2024 Active Nitroglycerin 0.4 MG as directed Sublingual Active DULoxetine HCl 30 MG 1 capsule Orally Tw ice a day for 30 days 08/17/2023 Active Ezetimibe 10 MG 1 tablet Orally Once a day for 30 day(s) Active Aspirin 81 MG 1 tablet Orally Once a day for 30 day(s) Active Eliquis 5 MG 1 tablet Orally Twic e a day 02/21/2023 Active Rosuvastatin Calcium 40 MG 1 tablet Oral ly Once a day for 30 day(s) Active Tamoxifen Citrate 10 MG 1 tablet Orally Twice a day Active Metoprolol Tartrate 25 MG 1 tablet with food Orally Twice a day 02/21/2023 Active DULoxetine HCl 30 MG 1 capsule twice a d ay for 30 days Active Social History Tobacco Use: Social History Observation Description Date Details (start date - stop date) Never Smoker NA - NA Sex Assigned At : Social History Observation Description Sex Assigned At Female Dont use, Tobacco Use/Smoking Question Answer Notes Are you a nonsmoker Tobacco Control (Standard) Question Answer Notes Tobacco use: Nonsmoker Problems Problem Type SNOMED Code ICD Code Onset Dates Problem Status W/U Status Risk Notes Problem Morbid obesity (disorder) (699358642) Morbid (severe) obesity due to excess calories (E66.01) Active confirmed Problem 41663078 Bipolar II disorder (F31.81) Active confirmed Problem Acute stress reaction (19161822) Acute stress reaction (F43.0) Active confirmed Problem Generalized anxiety disorder (96748042) TRACE (generalized anxiety disorder) (F41.1) Active confirmed Encounters Encounter Location Date Provider Diagnosis [address] [place] [address] 08/23/2023 Johnny Ibanez [facility] [address] [place] [address] 10/27/2023 Johnny Ibanez Bipolar II disorder F31.[address] [place] [address] 04/06/2024 Johnny Ibanez [address] [place] [address] 10/06/2023 Johnny Ibanez [address] [place] [address] 05/25/2023 Johnny Ibanez Bipolar II disorder F31.[address] [place] [address] 08/17/2023 Johnny Ibanez Bipolar II disorder F31.[address] [place] [address] [place] [address] 11/10/2023 Johnny Ibanez Bipolar II disorder F31.81 and Morbid (severe) obesity due to excess calories E66.[address] [place] [address] 02/22/2024 Johnny Ibanez Bipolar II disorder F31.81 and TRACE (generalized anxiety disorder) F41.1 Assessments Encounter Date Diagnosis (ICD Code) Assessment Notes Treatment Notes Treatment Clinical Notes Section Notes 11/10/2023 Bipolar II disorder (ICD-10 - F31.81) 10/27/2023 Bipolar II disorder (ICD-10 - F31.81) 08/17/2023 Bipolar II disorder (ICD-10 - F31.81) 05/25/2023 Bipolar II disorder (ICD-10 - F31.81) Client with improvements in mood after being taken off Megace by cancer doctor. No treatment plan changes needed. 02/22/2024 Bipolar II disorder (ICD-10 - F31.81) [...] back stimulator and the anxiety surrounding this. 11/10/2023 Morbid (severe) obesity due to excess calories (ICD-10 - E66.01) 05/25/2023 Other Discussed sleep hygiene and caffeine intake with encouragement to limit electronic devices an hour before bed and to limit caffeine after 3:00pm. Exercise benefits for mood and health discussed. Psychoeducation regarding psychiatric illness provided. Client was educated about risks and benefits of medication, alternatives to medication, off label uses of medication, suicidal ideation with SSRIs, self-administratio n and compliance with medication along with how to safely store medication. Verbal informed consent obtained. Client agrees to return sooner if symptoms worsen or if suicidal or homicidal ideations occur. Client has the phone number to the 24-hour crisis line at [facility]. Questions addressed. Client verbalized understanding of all information and is agreeable to treatment plan. Client with improvements in mood after being taken off Megace by cancer doctor. No treatment plan changes needed. 08/17/2023 Other Discussed sleep hygiene and caffeine intake with encouragement to limit electronic devices an hour before bed and to limit caffeine after 3:00pm. Exercise benefits for mood and health discussed. Psychoeducation regarding psychiatric illness provided. Client was educated about risks and benefits of medication, alternatives to medication, off label uses of medication, suicidal ideation with SSRIs, self-administratio n and compliance with medication along with how to safely store medication. Verbal informed consent obtained. Client agrees to return sooner if symptoms worsen or if suicidal or homicidal ideations occur. Client has the phone number to the 24-hour crisis line at [facility]. Questions addressed. Client verbalized understanding of all information and is agreeable to treatment plan. 11/10/2023 Other Discussed sleep hygiene and caffeine intake with encouragement to limit electronic devices an hour before bed and to limit caffeine after 3:00pm. Exercise benefits for mood and health discussed. Psychoeducation regarding psychiatric illness provided. Client was educated about risks and benefits of medication, alternatives to medication, off label uses of medication, suicidal ideation with SSRIs, self-administratio n and compliance with medication along with how to safely store medication. Verbal informed consent obtained. Client agrees to return sooner if symptoms worsen or if suicidal or homicidal ideations occur. Client has the phone number to the 24-hour crisis line at [facility]. Questions addressed. Client verbalized understanding of all information and is agreeable to treatment plan. 02/22/2024 Other Discussed sleep hygiene and caffeine intake with encouragement to limit electronic devices an hour before bed and to limit caffeine after 3:00pm. Exercise benefits for mood and health discussed. Psychoeducation regarding psychiatric illness provided. Client was educated about risks and benefits of medication, alternatives to medication, off label uses of medication, suicidal ideation with SSRIs, self-administratio n and compliance with medication along with how to safely store medication. Verbal informed consent obtained. Client agrees to return sooner if symptoms worsen or if suicidal or homicidal ideations occur. Client has the phone number to the 24-hour crisis line at [facility]. Questions addressed. Client verbalized understanding of [...] the anxiety surrounding this. 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
--- OUTSIDE RECORDS SUMMARY | 2024-05-12 12:51 | XMS_ITS | Encounter Summary ---
Author Organization [facility] Address [address] [place] [address] Care Team Providers Care Beauty Operator Apprentice Name Role Phone Carly Villagomez SUPERVISOR TWISTING DEPARTMENT Primary Care Provider [phone] Encounter Details Date Type Department Care Team (Late st Contact Info) Description 09/15/2021 MyChart Message Enc [facility] Medical Group Family and Sports Medicine - [place] [address] [place] [address] Carly Villagomez, SUPERVISOR TWISTING DEPARTMENT [address] [place] [address] Appt. error? Social History Tobacco Use Types Packs/Day Years [...] Sex Assigned at Female 05/02/2024 10:36 AM UNDERWRITING MANAGER Legal Sex Female 7:53 PM CDT Gender [...] Description 07/10/2024 11:20 AM CDT Office Visit [facility] [address] [place] [address] Rene Sage DO [address] [place] [address] 08/01/2024 12:30 PM CDT Appointment [facility] [address] [facility] [address] [address] [place] [address] Chay Marshall MD 1414 [facility] 330 [place], [place] [address] 08/01/2024 1:30 PM CDT Appointment [facility] [address] [facility] [place] [address] Chay Marshall MD [address] [address] 09/26/2024 1:00 PM CDT Office Visit [facility] [address] [facility] [address] [place], [place] [address] Thien Cooper MD [address] [place] [address] [place], [place] [address] documented as of this encounter Visit Diagnoses [...] Depression Total Score: 12 021 2:23 PM UNDERWRITING MANAGER documented as of this encounter Care Teams Beauty Operator Apprentice Relationship Specialty Start Date End Date Carly Villagomez NP [address] [place] [address] PCP - General Nurse Practitioner Family 11/02/16 documented as of this encounter
--- OUTSIDE RECORDS SUMMARY | 2024-05-12 12:51 | XMS_ITS | Encounter Summary ---
Author Organization [facility] Address [address] [place] [address] Care Team Providers Care Telecommunications Administrator Name Role Phone Carly Villagomez PULL SOCKET ASSEMBLER Primary Care Provider [phone] Encounter Details Date Type Department Care Team (Late st Contact Info) Description 02/20/2021 MyCTimeGeniust Message Enc [facility] Family and Sports Medicine - [place] [address] [place] [address] Carly Villagomez, PULL SOCKET ASSEMBLER [address] [place] [address] Cyst on back follow-up Social History Tobacco Use Types Packs/Day Years [...] Sex Assigned at Female 05/02/2024 10:36 AM STAFF RESEARCH SCIENTIST Legal Sex Female 7:53 PM CDT Gender Identity Not on file Sexual Orientation Not on file COVID-19 Exposure Response Date Recorded In the last month, have you been in contact with someone who was confirmed or suspected to have Coronavirus / COVID-19? No / Unsure 02/10/2021 2:03 PM STAFF RESEARCH SCIENTIST documented as of this encounter Progress Notes * Dory Guillaume MA - 02/20/2021 9:08 AM CST FYI F RESEARCH SCIENTIST documented in this encounter Plan of Treatment Upcoming Encounters Date Type Department Care Team (Late st Contact Info) Description 07/10/2024 11:20 AM CDT Office Visit [facility] Multispecialty Care - [facility] [address] [place] [address] Rene Sage DO [address] [place] [address] 08/01/2024 12:30 PM CDT Appointment [facility] ONE [facility] [address] [place] [address] Chay Marshall MD [facility] [address] [address] 08/01/2024 1:30 PM CDT Appointment [facility] [address] [facility] [address] Chay Marshall MD [facility] [address] [address] 09/26/2024 1:00 PM CDT Office Visit [facility] [address] [place] [address] Thien Cooper MD [address] [address] documented as of this encounter Visit Diagnoses [...] documented as of this encounter Care Teams Telecommunications Administrator Relationship Specialty Start Date End Date [place] [address] PCP - General Nurse Practitioner Family 11/02/16 documented as of this encounter
--- OUTSIDE RECORDS SUMMARY | 2024-05-12 12:51 | XMS_ITS | Encounter Summary ---
Author Organization [facility] Address [address] [place] [address] Care Team Providers Care Staging Technician Name Role Phone Carly Villagomez TRACY Primary Care Provider [phone] Encounter Details Date Type Department Care Team (Late st Contact Info) Description 11/12/2021 [facility] Message Enc [facility], [address] [address] Amari Koch MD,PHD Cardiac Ultrasound Social History Tobacco Use Types Packs/Day Years [...] Sex Assigned at Female 05/02/2024 10:36 AM PARTS ADVISOR Legal Sex Female 7:53 PM CDT Gender Identity Not on file Sexual Orientation Not on file COVID-19 Exposure Response Date Recorded In the last 10 days, have yo u been in contact with someone who was confirmed or suspected to have Coronavirus/COVID-19? No / Unsure 11/03/2021 1:38 PM CDT documented as of this encounter Plan of Treatment Upcoming Encounters Date Type Department Care Team (Late st Contact Info) Description 07/10/2024 11:20 AM CDT Office Visit [facility] [address] [place] [address] Rene Sage DO [address] [place] [address] 08/01/2024 12:30 PM CDT Appointment [facility] [address] [facility] [place] [address] Chay Marshall MD [address] [address] 08/01/2024 1:30 PM CDT Appointment [facility] [address] [facility] [place] [address] Chay Marshall MD [address] [address] 09/26/2024 1:00 PM CDT Office Visit [facility] [address] [place] [address] Thien Cooper MD [address] [place], [place] [address] documented as of this encounter Visit Diagnoses [...] Depression Total Score: 12 021 2:23 PM PARTS ADVISOR documented as of this encounter Care Teams Staging Technician Relationship Specialty Start Date End Date Carly Villagomez NP [address] [place] [address] PCP - General Nurse Practitioner Family 11/02/16 documented as of this encounter
--- OUTSIDE RECORDS SUMMARY | 2024-05-12 12:51 | XMS_ITS | Encounter Summary ---
Author Organization [facility] Address [address] [place] [address] Care Team Providers Care Associate Software Developer Name Role Phone VillagomezCarly TRACY Primary Care Provider [phone] Encounter Details Date Type Department Care Team (Late st Contact Info) Description 08/13/2023 [facility] Message Enc [facility] THREE [address] [id number] Thien Cooper MD [address] [phone] Test Results Social History Tobacco Use Types Packs/Day Years Used Date Smoking Tobacco: Never Smokeless Tobacco: Never Alcohol Use Standard Drinks/Week Comments Not Currently 0 (1 standard drink = 0.6 oz pure alcohol) twice a year, 2 glasses of wine [facility] Utilities Answer Date Recorded In the past 12 months has [facility] electric, gas, oil, or water company threatened [...] place to sleep or slept in a fdc (including now)? No 02/21/2023 Comments No Sex and Gender Information Value Date Recorded Sex Assigned at Female 05/02/2024 10:36 AM POLICE DETECTIVE Legal Sex Female 7:53 PM CDT Gender Identity Not on file Sexual Orientation Not on file Occupation Industry Job Start Date Job End Date former professional volunteer with [employer] Not on blayne e Not on file [...] encounter Progress Notes * RHONA Ribera - 08/19/2023 3:04 PM CDT PG - See message. Having atypical CP. Chronic, described as an ache. 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 Stress is fine. Could not tolerate Imdur due to MCDONALD. I told her to also discuss her pain with her oncologist as I am not sure its cardiac in nature. She remains concerned and is reaching out to us for advise. Nathaly, has she ever tried taking the SL NTG to see if it helps or not? Lastly, she feels her chest pain did not start until AFTER she started the Metoprolol and Eliquis. Can try changing Metoprolol I suppose and see if it makes a difference or not and/or change to a different BB. * RHONA Ribera - 08/17/2023 4:07 PM CDT Patient asking for stress results documented in this encounter Plan of Treatment Upcoming Encounters Date Type Department Care Team (Late st Contact Info) Description 07/10/2024 11:20 AM CDT Office Visit [facility] Medical Group Mult[facility]pecial[facility] [address] [place] [address] Rene Sage DO [address] [place] [address] 08/01/2024 12:30 PM CDT Appointment [facility] [place] [address] Chay Marshall MD [address] [place], [place] [address] 08/01/2024 1:30 PM CDT Appointment [facility] [address] [place] [address] Chay Marshall MD [address] [place], [place] [address] 09/26/2024 1:00 PM CDT Office Visit [facility] [address], [address] [place], [place] [address] Thien Cooper MD [address] [place], [place] [address] documented as of this encounter Goals Goal Patient Goal Type Associated Problems Recent Progress Patient-Stated? Author Patient will return to prior living situation and remain independent in ADLs upon discharge from hospital Lifestyle No Andreea Thomas, COMMERCIAL OR INSTITUTIONAL CLEANER documented as of this encounter Visit Diagnoses Not on filedocumented in this encounter Additional Health Concerns Assessment Noted Time PHQ-9 Depression Total Score: 11 023 4:03 PM CDT documented as of this encounter Care Teams Associate Software Developer Relationship Specialty Start Date End Date Carly Villagomez, ELECTROMECHANICAL TECHNICIAN [address] [place] [address] PCP - General Nurse Practitioner Family 11/02/16 documented as of this encounter
--- OUTSIDE RECORDS SUMMARY | 2024-05-12 12:51 | XMS_ITS | Encounter Summary ---
Author Organization [facility] Address [address] [place] [address] Care Team Providers Care Sugar Controller Name Role Phone Carly Villagomez ANIMAL ANATOMY TEACHER Primary Care Provider [phone] Encounter Details Date Type Department Care Team (Late st Contact Info) Description 06/15/2022 MyChart Message Enc [facility] Medical Group Family and Sports Medicine - [place] [address] [place] [address] Carly Villagomez, ANIMAL ANATOMY TEACHER [address] [place] [address] Breast Biopsy Social History Tobacco Use Types Packs/Day Years [...] Sex Assigned at Female 05/02/2024 10:36 AM WINDER HAND Legal Sex Female 7:53 PM CDT Gender Identity Not on file Sexual Orientation Not on file COVID-19 Exposure Response Date Recorded In the last 10 days, have yo u been in contact with someone who was confirmed or suspected to have Coronavirus/COVID-19? No / Unsure 06/12/2022 9:50 AM WINDER HAND documented as of this encounter Plan of Treatment Upcoming Encounters Date Type Department Care Team (Late st Contact Info) Description 07/10/2024 11:20 AM CDT Office Visit [facility] Medical [facility] Multispecialty Care - [facility] [address] [place] [address] Rene Sage DO [address] [place] [address] 08/01/2024 12:30 PM CDT Appointment [facility] [address] [facility] [place] [address] Chay Marshall MD 1414 [facility] 330 [place], [place] [address] 08/01/2024 1:30 PM CDT Appointment [facility] [address] [facility] [address] Chay Marshall MD 1414 [facility] [address] [place], [place] [address] 09/26/2024 1:00 PM CDT Office Visit [facility] [address] [facility] [address], [address] [place], [place] [address] Thien Cooper MD Three [facility]. [facility] [address] [place], [place] [address] documented as of this encounter Visit Diagnoses Not on filedocumented in this encounter Additional Health Concerns Infection Onset Date Last Indicated Resolved Time COVID-19 Rule Out 08/25/2022 08/25/2022 08/26/2022 3:43 PM CDT COVID-19 Confirmed 08/25/2022 09/01/2022 12:32 AM CDT Assessment Noted Time PHQ-9 Depression Total Score: 12 021 2:23 PM WINDER HAND documented as of this encounter Care Teams Sugar Controller Relationship Specialty Start Date End Date Carly Villagomez NP [address] [place] [address] PCP - General Nurse Practitioner Family 11/02/16 documented as of this encounter
--- OUTSIDE RECORDS SUMMARY | 2024-05-12 12:51 | XMS_ITS | Encounter Summary ---
Author Organization [facility] Address [address] [facility] [address] [place] [address] Care Team Providers Care Application Infrastructure Engineer Name Role Phone Unknown, Provider Primary Care Provider Unavaila ble Encounter Details Date Type Department Care Team (Late Contact Info) Description 02/02/2023 [facility] Outpatient Visit [facility] [address] [facility] [address]. [address] [place] [address] Kenny Schrader MD 1035 [facility] 400 [place] [address] Social History Tobacco Use Types Packs/Day Years Used Date Smoking Tobacco: Never Smokeless Tobacco: Never Alcohol Use Standard Drinks/Week Comments Yes 0 (1 standard drink = 0.6 oz pur e alcohol) 1 drink a month PHQ-2 Answer Date Recorded Patient Health Questionnaire-2 Score 0 02/01/2023 Sex and Gender Information Value Date Recorded Sex Assigned at Not on file Gender Identity Not on file Sexual Orientation Not on file documented as of this encounter Plan of Treatment Upcoming Encounters Date Type Department Care Team (Late Contact Info) Description 05/19/2024 10:00 AM DATA TYPIST Office Visit [facility] On[facility] [address] [place] [address] Kenny Schrader MD [address] [facility] [address] [place] [address] documented as of this encounter Visit Diagnoses Not on filedocumented in this encounter Care Teams Application Infrastructure Engineer Relationship Specialty Start Date End Date Unknown, Provider PCP - General 02/01/23 documented as of this encounter
--- OUTSIDE RECORDS SUMMARY | 2024-05-12 12:51 | XMS_ITS | Encounter Summary ---
Author Organization [facility] Address [address] [place] [address] Care Team Providers Care Oil Spraying Machine Operator Name Role Phone Carly Villagomez WHEEL AND PINION INSPECTOR Primary Care Provider [phone] Encounter Details Date Type Department Care Team (Late st Contact Info) Description 05/24/2022 MyChart Message Enc [facility] Medical Group Family and Sports Medicine - [place] [address] [place] [address] Carly Villagomez, WHEEL AND PINION INSPECTOR [address] [place] [address] Mammogram Social History Tobacco Use Types Packs/Day Years [...] Sex Assigned at Female 05/02/2024 10:36 AM HOST AND HOSTESS Legal Sex Female 7:53 PM CDT Gender Identity Not on file Sexual Orientation Not on file COVID-19 Exposure Response Date Recorded In the last 10 days, have yo u been in contact with someone who was confirmed or suspected to have Coronavirus/COVID-19? No / Unsure 05/11/2022 4:39 PM HOST AND HOSTESS documented as of this encounter Plan of Treatment Upcoming Encounters Date Type Department Care Team (Late st Contact Info) Description 07/10/2024 11:20 AM CDT Office Visit [facility] Medical [facility] [address] [place] [address] Rene Sage DO [address] [place] [address] 08/01/2024 12:30 PM CDT Appointment [facility] [address] [facility] [place] [address] Chay Marshall MD 1414 [facility] 330 [place], [place] [address] 08/01/2024 1:30 PM CDT Appointment [facility] [address] [facility] [place] [address] Chay Marshall MD 1414 [facility] 330 [place], [place] [address] 09/26/2024 1:00 PM CDT Office Visit [facility] [address] [facility] [address] [place], [place] [address] Thien Cooper MD Three [facility]. [facility] [address] [place], [place] [address] documented as of this encounter Visit Diagnoses Not on filedocumented in this encounter Additional Health Concerns Infection Onset Date Last Indicated Resolved Time COVID-19 Rule Out 08/25/2022 08/25/2022 08/26/2022 3:43 PM CDT COVID-19 Confirmed 08/25/2022 09/01/2022 12:32 AM CDT Assessment Noted Time PHQ-9 Depression Total Score: 12 021 2:23 PM HOST AND HOSTESS documented as of this encounter Care Teams Oil Spraying Machine Operator Relationship Specialty Start Date End Date Carly Villagomez NP [address] [place] [address] PCP - General Nurse Practitioner Family 11/02/16 documented as of this encounter
--- OUTSIDE RECORDS SUMMARY | 2024-05-12 12:51 | XMS_ITS | Encounter Summary ---
Author Organization [facility] Address [address] [place] [address] Care Team Providers Care Sales Closer Name Role Phone Carly Villagomez IRONER OR PRESSER Primary Care Provider [phone] Encounter Details Date Type Department Care Team (Late st Contact Info) Description 03/03/2022 Synthorxt Message Enc [facility] Medical Group Family and Sports Medicine - [place] [address] [place] [address] Carly Villagomez, IRONER OR PRESSER [address] [place] [address] Continuing to track with you since you wrote the script and referrals Social History Tobacco Use Types Packs/Day Years [...] Sex Assigned at Female 05/02/2024 10:36 AM OCCUPATIONAL HEALTH AND SAFETY ADVISER Legal Sex Female 7:53 PM CDT Gender Identity Not on file Sexual Orientation Not on file COVID-19 Exposure Response Date Recorded In the last 10 days, have yo u been in contact with someone who was confirmed or suspected to have Coronavirus/COVID-19? No / Unsure 02/12/2022 7:15 AM OCCUPATIONAL HEALTH AND SAFETY ADVISER documented as of this encounter Plan of Treatment Upcoming Encounters Date Type Department Care Team (Late st Contact Info) Description 07/10/2024 11:20 AM CDT Office Visit [facility] Medical Group Multispecialty Care - [facility] [address] [place] [address] Rene Sage DO [address] [place] [address] 08/01/2024 12:30 PM CDT Appointment [facility] [address] [facility] [place] [address] Chay Marshall MD [address] [address] 08/01/2024 1:30 PM CDT Appointment [facility] [address] [facility] [place] [address] Chay Marshall MD [address] [address] 09/26/2024 1:00 PM CDT Office Visit [facility] [address] [facility] [address] [place], [place] [address] Thien Cooper MD Three [facility]. [address] [address] documented as of this encounter Visit Diagnoses Not on filedocumented in this encounter Additional Health Concerns Infection Onset Date Last Indicated Resolved Time COVID-19 Rule Out 08/25/2022 08/25/2022 08/26/2022 3:43 PM CDT COVID-19 Confirmed 08/25/2022 09/01/2022 12:32 AM CDT Assessment Noted Time PHQ-9 Depression Total Score: 12 021 2:23 PM OCCUPATIONAL HEALTH AND SAFETY ADVISER documented as of this encounter Care Teams Sales Closer Relationship Specialty Start Date End Date Carly Villagomez NP [address] [place] [address] PCP - General Nurse Practitioner Family 11/02/16 documented as of this encounter
--- OUTSIDE RECORDS SUMMARY | 2024-05-12 12:51 | XMS_ITS | Encounter Summary ---
Author Organization [facility] Address [address] [place] [address] Care Team Providers Care Trauma Registrar Name Role Phone Carly Villagomez RIP SAWYER Primary Care Provider [phone] Encounter Details Date Type Department Care Team (Late st Contact Info) Description 10/17/2022 MyChart Message Enc [facility] Medical Group Family and Sports Medicine - [place] [address] [place] [address] Carly Villagomez, RIP SAWYER [address] [place] [address] Ozempic was approved Social History Tobacco Use Types Packs/Day Years Used Date Smoking Tobacco: Never Smokeless Tobacco: Never Alcohol Use Standard Drinks/Week Comments Not Currently 0 (1 standard drink = 0.6 oz pure alcohol) twice a year, 2 glasses of wine AUDIT-C Answer Date Recorded Frequency of Alcohol Consumption Never 06/27/2018 Average Number of Drinks Not on file 019 Frequency of Binge Drinking Not on file 06/04 PHQ-2 Answer Date Recorded Patient Health Questionnaire-2 Score 1 10/12/2022 Comments No Sex and Gender Information Value Date Recorded Sex Assigned at Female 05/02/2024 10:36 AM STRINGER MACHINE TENDER Legal Sex Female 7:53 PM CDT Gender Identity Not on file Sexual Orientation Not on file COVID-19 Exposure Response Date Recorded In the last 10 days, have yo u been in contact with someone who was confirmed or suspected to have Coronavirus/COVID-19? No / Unsure 09/18/2022 12:09 PM CDT documented as of this encounter Plan of Treatment Upcoming Encounters Date Type Department Care Team (Late st Contact Info) Description 07/10/2024 11:20 AM CDT Office Visit [facility] Medical Group [facility] [address] [place] [address] Rene Sage DO [address] [place] [address] 08/01/2024 12:30 PM CDT Appointment [facility] [address] [facility] [place] [address] Chay Marshall MD [facility] [address] 8[address] 08/01/2024 1:30 PM CDT Appointment [facility] ONE [facility] [place] [address] Chay Marshall MD [facility] [address] [address] 09/26/2024 1:00 PM CDT Office Visit [facility] [address] [facility] [address] [place], [place] [address] Thien Cooper MD Three [facility] [address] [place], [place] [address] documented as of this encounter Visit Diagnoses Not on filedocumented in this encounter Additional Health Concerns Assessment Noted Time PHQ-9 Depression Total Score: 11 023 4:03 PM CDT documented as of this encounter Care Teams Trauma Registrar Relationship Specialty Start Date End Date Carly Villagomez, TRACY [address] [place] [address] PCP - General Nurse Practitioner Family 11/02/16 documented as of this encounter
--- OUTSIDE RECORDS SUMMARY | 2024-05-12 12:51 | XMS_ITS | Encounter Summary ---
Author Organization [facility] Address [address] [place] [address] Care Team Providers Care Design Leader Name Role Phone Unknown, Provider Primary Care Provider Unavaila ble Encounter Details Date Type Department Care Team (Late Contact Info) Description 02/02/2023 [facility] Out[facility] Visit [facility] [address] [facility] [address] [place] [address] Kenny Schrader MD 1036 [facility] 400 [place] [address] Social History Tobacco Use Types Packs/Day Years [...] (Late Contact Info) Description 05/19/2024 10:00 AM TIGHT COOPER Office Visit [facility] - Surg Oncology [address] [address] Kenny Schrader MD 1034 [facility] 400 [place] [address] documented as of this encounter Visit Diagnoses Not on filedocumented in this encounter Care Teams Design Leader Relationship Specialty Start Date End Date Unknown, Provider PCP - General 02/01/23 documented as of this encounter
--- OUTSIDE RECORDS SUMMARY | 2024-05-12 12:51 | XMS_ITS | Encounter Summary ---
Author Organization [facility] Address [address] [place] [address] Care Team Providers Care Flooring Sales Manager Name Role Phone VillagomezCarly TRACY Primary Care Provider [phone] Encounter Details Date Type Department Care Team (Late st Contact Info) Description 12/17/2022 MyChart Message Enc [facility] Medical Group Multispecialty Care - [facility] [address] [facility], [address] [place] [phone] Bárbara Hart APRN 3 [facility] [address] [place] [address] Referrals Social History Tobacco Use Types Packs/Day Years [...] Sex Assigned at Female 05/02/2024 10:36 AM SHROUDMAN Legal Sex Female 7:53 PM CDT Gender Identity Not on file Sexual Orientation Not on file documented as of this encounter Plan of Treatment Upcoming Encounters Date Type Department Care Team (Late st Contact Info) Description 07/10/2024 11:20 AM CDT Office Visit [facility] Medical Group [facility] [address] [place] [address] Rene Sage DO [address] [place] [address] 08/01/2024 12:30 PM CDT Appointment [facility] [place] [address] Chay Marshall MD [facility] [address] 08/01/2024 1:30 PM CDT Appointment [facility] ONE [place] [address] Chay Marshall MD [facility] [address] [address] 09/26/2024 1:00 PM CDT Office Visit [facility] [address] [facility], [facility] [address] [place], [place] [address] Thien Cooper MD Three [facility]. [facility] [address] [place], [place] [address] documented as of this encounter Visit Diagnoses Not on filedocumented in this encounter Additional Health Concerns Assessment Noted Time PHQ-9 Depression Total Score: 11 10/12/ 023 4:03 PM CDT documented as of this encounter Care Teams Flooring Sales Manager Relationship Specialty Start Date End Date Carly Villagomez, TRACY [address] [place] [address], [place] [address] PCP - General Nurse Practitioner Family 11/02/16 documented as of this encounter
--- OUTSIDE RECORDS SUMMARY | 2024-05-12 12:51 | XMS_ITS | Encounter Summary ---
Author Organization [facility] Address [facility]ly [facility] [place] [address] Care Team Providers Care Inside Upholsterer Name Role Phone Carly Villagomez TRACY Primary Care Provider [phone] Encounter Details Date Type Department Care Team (Latest Contact Info) Description 11/22/2017 Abstract [facility] , Adela Waters MD Social History Tobacco Use Types Packs/Day Years Used Date Smoking Tobacco: Never Assessed Comments Unknown Sex and Gender Information Value Date Recorded Sex Assigned at Female 05/02/2024 10:36 AM SPORTS LEADERSHIP INSTRUCTOR Legal Sex Female 7:53 PM CDT Gender Identity Not on file Sexual Orientation Not on file documented as of this encounter Plan of Treatment Upcoming Encounters Date Type Department Care Team (Late st Contact Info) Description 07/10/2024 11:20 AM CDT Office Visit [facility] Medical Group Multispecialty [facility] - [facility] [address] [facility] [address] [place] [address] Rene Sage DO 3 [facility] [address] [place] [address] 08/01/2024 12:30 PM CDT Appointment [facility] [address] [facility] [place] [address] Chay Marshall MD [address] [facility] [address] [place], [place] [address] 08/01/2024 1:30 PM CDT Appointment [facility] [place] [address] Chay Marshall MD 14[address] [facility] [address] [place], [place] [address] 09/26/2024 1:00 PM CDT Office Visit [facility] THREE [facility], [facility] [address] [place], [place] [address] Thien Cooper MD Three [facility]. [address] [address] documented as of this encounter Visit Diagnoses [...] documented as of this encounter Care Teams Inside Upholsterer Relationship Specialty Start Date End Date Carly Villagomez NP [address] [place] [address] PCP - General Nurse Practitioner Family 11/02/16 documented as of this encounter
--- OUTSIDE RECORDS SUMMARY | 2024-05-12 12:51 | XMS_ITS | Encounter Summary ---
Author Organization [facility] Address [address] [place] [address] Care Team Providers Care Drain Technician Name Role Phone Carly Villagomez TRUCK SALES MANAGER Primary Care Provider [phone] Encounter Details Date Type Department Care Team (Late st Contact Info) Description 06/06/2021 MyChart Message Enc [facility] Medical Group Family and Sports Medicine - [place] [address] [place] [address] Carly Villagomez, TRUCK SALES MANAGER [address] [place] [address] Thanks Social History Tobacco Use Types Packs/Day Years [...] Sex Assigned at Female 05/02/2024 10:36 AM RESERVATIONS SALES AGENT Legal Sex Female 7:53 PM CDT Gender Identity Not on file Sexual Orientation Not on file COVID-19 Exposure Response Date Recorded In the last 10 days, have yo u been in contact with someone who was confirmed or suspected to have Coronavirus/COVID-19? No / Unsure 06/03/2021 11:53 AM RESERVATIONS SALES AGENT documented as of this encounter Plan of Treatment Upcoming Encounters Date Type Department Care Team (Late st Contact Info) Description 07/10/2024 11:20 AM CDT Office Visit [facility] Medical Group Mult[facility]pecialty Care - [facility] [address] [place] [address] Rene Sage DO [address] [place] [address] 08/01/2024 12:30 PM CDT Appointment [facility] [address] [facility] [place] [address] Chay Marshall MD 1414 [facility] 330 [place], [place] [address] 08/01/2024 1:30 PM CDT Appointment [facility] [place] [address] Chay Marshall MD 1414 [facility] 330 [place], [place] [address] 09/26/2024 1:00 PM CDT Office Visit [facility] [address] [facility], [place] [address] [place], [place] [address] Thien Cooper MD Three [facility]. [facility] [address] [place], [place] [address] documented as of this encounter Visit Diagnoses [...] Depression Total Score: 12 021 2:23 PM RESERVATIONS SALES AGENT documented as of this encounter Care Teams Drain Technician Relationship Specialty Start Date End Date Carly Villagomez NP [address] [place] [address] PCP - General Nurse Practitioner Family 11/02/16 documented as of this encounter
--- OUTSIDE RECORDS SUMMARY | 2024-05-12 12:52 | XMS_ITS | Referral Summary ---
Author Organization [facility] [employer] Address [address] [facility] [place] [address] Care Team Providers Care Roll Carrier Name Role Phone Unknown, Provider Primary Care Provider Unavaila ble Source Comments [facility] [employer],non-owned Affiliates and Associated Physician Practices is amultiple site organization consisting of ambulatory clinics and hospital sitesin [place], [place], [place] and [place]. This disclosure is being madepursuant to the Care Everywhere program and may not contain all information available regarding this patient. Last updated 17.[facility] [employer] Encounters Date Type Department Care Team Description 03/31/2024 Telephone [facility] [address] [facility] [address] [place] [address] Kenny Schrader MD from Last 3 Months Allergies Active Allergy Reactions Criticality Noted Date Comments Carbamazepine Unknown,Vomiting Low 08/25/2012 Reaction: Vomiting, Reaction: Vomiting, Lac Bovis Unknown 08/25/2012 Nisoldipine Unknown 07/06/2022 Nitrofurantoin Rash Medium 06/19/2021 Pravastatin Shortness of Breath,Palpitations,Unk nown High 08/25/2012 Reaction: Chest Pain, [place] like having heart attack, pt states went to ER Sulfa Antibiotics Palpitations,Unknown 08/26/19 13 Yeast infection Yeast infection Tramadol Unknown 03/06/2022 Trazodone Headache,Nausea and/ or Vomiting,Other,Unknown, Vomiting Low 08/25/2012 Reaction: Other Reaction: Confusion, Headache, Vomiting, confusion Venlafaxine Other,Nausea and/or Vomiting,Unknown,Vomiti ng Medium 08/25/2012 Reaction: Nausea, Medications * Be aware that medications may not be up to date on this document. Alwaysverify current medications with the patient. Medication Sig Dispensed Refills Start Date End Date Status aspirin EC (Ecotrin) 81 MG tablet 1 (one) tablet Active jcixnlc-rdxtlqkjh-cxuj 333-133-5 MG tablet Take 1 (one) tablet by mouth at bedtime Active DULoxetine (Cymbalta) 30 MG capsule Take 1 (one) capsule by mouth 2 times daily 01/28/2023 Active vitamin D, ergocalciferol, (Drisdol) 1.25 MG (63070 UT) capsule Take 1 (one) capsule by mouth 05/14/2022 Active ezetimibe (Zetia) 10 MG tablet Take 1 (one) tablet by mouth once daily 01/15/2023 Active furosemide (Lasix) 20 MG tablet 1 (one) tablet 11/23/2022 Active Glucosamine-Chondroit- Vit C-Mn (Glucosamine Chondroitin Complx) CAPS Take 1 capsule by mouth once daily Active HYDROcodone-acetaminop hen ([place]) 5-325 MG tablet 11/03/2021 Active lamoTRIgine (LaMICtal) 100 MG tablet Take 1 (one) tablet by mouth 2 times daily 12/28/2022 Active latanoprost (Xalatan) 0.005 % ophthalmic solution INSTILL 1 DROP IN BOTH EYES AT BEDTIME 12/21/2022 Active levothyroxine (Synthroid) 88 MCG tablet 1 (one) tablet 07/13/2022 Active megestrol (Megace) 40 MG tablet Take 1 (one) tablet by mouth 2 times daily 01/14/2023 Active multivitamins (One A Day) capsule Take 1 (one) capsule by mouth Active metFORMIN (Glucophage) 500 MG tablet 09/18/2022 Active nitroGLYCERIN (Nitrostat) 0.4 MG tablet Dissolve 1 (one) tablet under the tongue every 5 minutes as needed Active OLANZapine (ZyPREXA) 2.5 MG tablet Take 1 (one) tablet by mouth at bedtime 01/06/2023 Active Volcano-3 Fatty Acids (KP Fish Oil) 1200 MG Take 1 capsule by mouth Active potassium chloride ER 10 MEQ tablet 1 tablet with food Orally once per day for 30 day(s) Active primidone (Mysoline) 50 MG tablet Take 1 (one) tablet by mouth 3 TIMES DAILY for 3 days,then 1 t po at hs 01/20/2023 Active propranolol (Inderal) 40 MG tablet Take 1 (one) tablet by mouth 3 times daily Active rosuvastatin (Crestor) 40 MG tablet Take 1 (one) tablet by mouth at bedtime 01/15/2023 Active Semaglutide(0.25 or 0.5MG/DOS) 2 MG/3ML Solution Pen-injector (Ozempic (0.25 or 0.5 MG/DOSE)) 0.5 mg 10/14/2022 Active tamoxifen (Nolvadex) 20 MG tablet Take 2 (two) tablets by mouth once daily 05/26/2022 Active Active Problems Problem Noted Date Diagnosed Date Thoracic radiculopathy 11/27/2022 Sacroiliitis 11/27/2022 02/01/2023 Thoracic spinal stenosis 11/27/2022 023 Trochanteric bursitis of both hips 11/27/2022 02/01/2023 Lung nodule seen on imaging study 04/10/2022 02/01/2023 Murmur 04/14/2021 02/01/2023 Leg edema 12/03/2020 02/01/2023 Precordial pain 12/03/2020 02/01/2023 Endometrial cancer 09/09/2017 02/01/2023 Overview (02/01/2023): Added automatically from request for surgery [id number] Arteriosclerosis of carotid artery, bilateral 02/01/2023 [place] on CPAP 06/26/2016 02/01/2023 Morbid obesity 01/21/2016 02/01/2023 Chronic GERD 01/14/2016 02/01/2023 Edema 09/04/2013 02/01/2023 Bipolar disorder 08/25/2012 02/01/2023 Drug-induced hypothyroidism 08/25/201201/05 Overview (02/01/2023): Description: managed by Dr. Don psychiatry - on cymotel. 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 Social History Tobacco Use Types Packs/Day Years Used Date Smoking Tobacco: Never Smokeless Tobacco: Never Tobacco Cessation:Counseling Given: Not Answered Alcohol Use Standard Drinks/Week Comments Yes 0 (1 standard drink = 0.6 oz pur e alcohol) 1 drink a month PHQ-2 Answer Date Recorded Patient Health Questionnaire-2 Score 0 04/12/2023 Sex and Gender Information Value Date Recorded Sex Assigned at Not on file Gender Identity Not on file Sexual Orientation Not on file Last Filed Vital Signs Vital Sign Reading Time Taken Comments Blood Pressure 160/100 11/08/2023 1:40 PM CDT Pulse 94 04/12/2023 1:38 PM RENEWABLE ENERGY TRADER Temperature 36.6 C (97.8 F) 04/12/2023 1:38 PM RENEWABLE ENERGY TRADER Respiratory Rate 20 04/12/2023 1:38 PM RENEWABLE ENERGY TRADER Oxygen Saturation 100% 04/12/2023 1:38 PM RENEWABLE ENERGY TRADER Inhaled Oxygen Concentration - - Weight 117.9 kg (260 lb) 11/08/2023 1:40 PM CDT Height 160 cm (5' 3 ) 11/08/2023 1:40 PM CDT Body Mass Index 46.06 11/08/2023 1:40 PM CDT Plan of Treatment Upcoming Encounters Date Type Department Care Team (Late st Contact Info) Description 05/19/2024 10:00 AM RENEWABLE ENERGY TRADER Office Visit [facility] [place] [address] [place] [address] Kenny Schrader MD [address] [address] Care Teams Roll Carrier Relationship Specialty Start Date End Date Unknown, Provider PCP - General 02/01/23
--- OUTSIDE RECORDS SUMMARY | 2024-05-12 12:52 | XMS_ITS | Encounter Summary ---
Author Organization [facility] Address [address] [place] [address] Care Team Providers Care Preparator Name Role Phone Carly Villagomez AUTOCAD TECHNICIAN Primary Care Provider [phone] Encounter Details Date Type Department Care Team (Latest Contact Info) Description 04/27/2024 Infomous Message Enc [facility] Medical Group Family and Sports Medicine - [place] [address] [place] [address] Carly Villagomez, AUTOCAD TECHNICIAN [address] [place] [address] Medication Interactions Social History Tobacco Use Types Packs/Day Years Used Date Smoking Tobacco: Never Passive Smoke Exposure: Never Smokeless Tobacco: Never Alcohol Use Standard Drinks/Week Comments Not Currently 0 (1 standard drink = 0.6 oz pure alcohol) twice a year, 2 glasses of wine [facility] Utilities Answer Date Recorded In the past 12 months has [facility] [employer], gas, oil, or water [employer] threatened to shut off services in your [...] Answer Date Recorded Patient Health Questionnaire-2 Score 6 02/08/2024 Hunger Vital Sign Answer Date Recorded Within [...] place to sleep or slept in a fci (including now)? No 02/21/2023 Comments No Sex and Gender Information Value Date Recorded Sex Assigned at Female 05/02/2024 10:36 AM CRACKER OFF Legal Sex Female 7:53 PM CDT Gender [...] Description 07/10/2024 11:20 AM CDT Office Visit [facility] Medical Group Multispecialty Care - [facility] [address] [facility] [place] [address] Rene Sage DO [address] [facility] [address] [place] [address] 08/01/2024 12:30 PM CDT Appointment [facility] [address] [place] [address] Chay Marshall MD [address] [place] [phone] 08/01/2024 1:30 PM CDT Appointment [facility] ONE [facility] [place] [address] Chay Marshall MD 1414 [facility] 330 [place], [place] [address] 09/26/2024 1:00 PM CDT Office Visit [facility] THREE [facility], [facility] [address] [place], [place] [address] Thien Cooper MD Three [facility]. [facility] [address] [place], [place] [address] documented as of this encounter Goals Goal Patient Goal Type Associated Problems Recent Progress Patient-Stated? Author Patient will return to prior living situation and remain independent in ADLs upon discharge from hospital Lifestyle No Andreea Thomas, JAVASCRIPT SOFTWARE ENGINEER documented as of this encounter Visit Diagnoses Not on filedocumented in this encounter Additional Health Concerns Assessment Noted Time PHQ-9 Depression Total Score: 18 024 10:47 AM CRACKER OFF documented as of this encounter Care Teams Preparator Relationship Specialty Start Date End Date Carly Villagomez NP [address] [place] [address] PCP - General Nurse Practitioner Family 11/02/16 documented as of this encounter
--- OUTSIDE RECORDS SUMMARY | 2024-05-12 12:52 | XMS_ITS | Encounter Summary ---
Author Organization [facility] Address [address] [place] [address] Care Team Providers Care Flight Control Specialist Name Role Phone Carly Villagomez NP Primary Care Provider [phone] Reason for Visit * Reason Onset Date Comments Follow Up 05/12/2024 Encounter Details Date Type Department Care Team (Late st Contact Info) Description 05/12/2024 Telephone [facility] [place] [address] [phone] Cheryl Richard, RN Follow Up Social History Tobacco Use Types Packs/Day Years Used Date Smoking Tobacco: Never Passive Smoke Exposure: Never Smokeless Tobacco: Never Alcohol Use Standard Drinks/Week Comments Not Currently 0 (1 standard drink = 0.6 oz pure alcohol) twice a year, 2 glasses of wine [facility] Utilities Answer Date Recorded In the past 12 months has [facility] [employer], gas, oil, or water [employer] threatened to shut off services in your [...] place to sleep or slept in a custodial (including now)? No 02/21/2023 Comments No Sex and Gender Information Value Date Recorded Sex Assigned at Female 05/02/2024 10:36 AM HEALTH INFORMATION SPECIALIST Legal Sex Female 7:53 PM CDT Gender [...] documented in this encounter Progress Notes * Cheryl Richard RN - 05/12/2024 7:32 AM CST PT LEFT VM ON RN LINE ASKING FOR PSYCH EVAL REPORT TO BE FAXED TO DR CALVIN SANCHEZ. MARIELLA FAXED IT TO [phone] TH INFORMATION SPECIALIST documented in this encounter Plan of Treatment Upcoming Encounters Date Type Department Care Team (Late st Contact Info) Description 07/10/2024 11:20 AM CDT Office Visit [facility] Medical Group Multispecialty Care - [facility] [address] [facility] [address] [place] [address] Rene Sage, [address] [facility] [address] [place] [address] 08/01/2024 12:30 PM CDT Appointment [facility] [place] [address] Chay Marshall MD [address] [address] 08/01/2024 1:30 PM CDT Appointment [facility] [place] [address] Chay Marshall MD [address] [address] 09/26/2024 1:00 PM CDT [facility] THREE [facility], [address] [address] Thien Cooper MD Three [facility]. [address] [address] documented as of this encounter Goals Goal Patient Goal Type Associated Problems Recent Progress Patient-Stated? Author Patient will return to prior living situation and remain independent in ADLs upon discharge from hospital Lifestyle No Andreea Thomas, FRUIT SORTER documented as of this encounter Visit Diagnoses Not on filedocumented in this encounter Additional Health Concerns Assessment Noted Time PHQ-9 Depression Total Score: 18 024 10:47 AM HEALTH INFORMATION SPECIALIST documented as of this encounter Care Teams Flight Control Specialist Relationship Specialty Start Date End Date Carly Villagomez NP [address] [place] [phone] PCP - General Nurse Practitioner Family 11/02/16 documented as of this encounter
--- OUTSIDE RECORDS SUMMARY | 2024-05-12 12:52 | XMS_ITS | Encounter Summary ---
Author Organization [facility] Address [address] [place] [address] Care Team Providers Care Manual Arts Therapist Name Role Phone Carly Villagomez IMAGE PROCESSING ENGINEER Primary Care Provider [phone] Encounter Details Date Type Department Care Team (Late st Contact Info) Description 03/21/2024 MyCOcclutecht Message Enc [facility] Medical Group Family and Sports Medicine - [place] [address] [place] [address] Carly Villagomez, IMAGE PROCESSING ENGINEER [address] [place] [address] Update Social History Tobacco Use Types Packs/Day Years Used Date Smoking Tobacco: Never Passive Smoke Exposure: Never Smokeless Tobacco: Never Alcohol Use Standard Drinks/Week Comments Not Currently 0 (1 standard drink = 0.6 oz pure alcohol) twice a year, 2 glasses of wine [facility] Utilities Answer Date Recorded In the past 12 months has [facility] [employer], gas, oil, or water [employer] threatened to shut off services in your [...] Sex Assigned at Female 05/02/2024 10:36 AM LEAD NET SOFTWARE DEVELOPER Legal Sex Female 7:53 PM CDT Gender [...] Description 07/10/2024 11:20 AM CDT Office Visit [facility] Medical Group Multispecialty Care - [facility] [address] [facility] [address] [place] [address] Rene Sage DO [address] [facility] [address] [place] [address] 08/01/2024 12:30 PM CDT Appointment [facility] [place] [address] Chay Marshall MD [address] [place] [phone] 08/01/2024 1:30 PM CDT Appointment [facility] ONE [facility] [place] [address] Chay Marshall MD 1414 [facility] 330 [place], [place] [address] 09/26/2024 1:00 PM CDT Office Visit [facility] THREE [facility], [facility] [address] [place], [place] [address] Thien Cooper MD Three [facility]. [facility] [address] [place], [place] [address] documented as of this encounter Goals Goal Patient Goal Type Associated Problems Recent Progress Patient-Stated? Author Patient will return to prior living situation and remain independent in ADLs upon discharge from hospital Lifestyle No Andreea Thomas, SILICA FILTER OPERATOR documented as of this encounter Visit Diagnoses Not on filedocumented in this encounter Additional Health Concerns Assessment Noted Time PHQ-9 Depression Total Score: 18 024 10:47 AM LEAD NET SOFTWARE DEVELOPER documented as of this encounter Care Teams Manual Arts Therapist Relationship Specialty Start Date End Date Carly Villagomez NP [address] [place] [address] PCP - General Nurse Practitioner Family 11/02/16 documented as of this encounter
--- OUTSIDE RECORDS SUMMARY | 2024-05-12 12:52 | XMS_ITS | Patient Health Summary ---
Author Organization [facility] Address [address] [place] [address] Care Team Providers Care Private Branch Exchange Service Advisor Name Role Phone Unknown, Provider Primary Care Provider Unavaila ble Note from [facility],non-owned Affiliates and Associated Physician Practices is amultiple site organization consisting of ambulatory clinics and hospital sitesin [place], [place], [place] and [place]. This disclosure is being madepursuant to the Care Everywhere program and may not contain all information available regarding this patient. Last updated 17.[facility] Allergies * Carbamazepine(Unknown,Vomiting) -Low Criticality * Lac Bovis(Unknown) * Nisoldipine(Unknown) * Nitrofurantoin(Rash) -Medium Criticality * Pravastatin(Shortness of Breath,Palpitations,Unknown) -High Criticality * Sulfa Antibiotics(Palpitations,Unknown) * Tramadol(Unknown) * Trazodone(Headache,Nausea and/or Vomiting,Other,Unknown,Vomiting) -Low Criticality * Venlafaxine(Other,Nausea and/or Vomiting,Unknown,Vomiting) -Medium Criticality Medications * Be aware that medications may not be up to date on this document. Alwaysverify current medications with the patient. * aspirin EC (Ecotrin) 81 MG tablet 1 (one) tablet * oxcnxiu-pvqbkscmi-aowl 333-133-5 MG tablet Take 1 (one) tablet by mouth at bedtime * DULoxetine (Cymbalta) 30 MG capsule(Started 01/28/2023) Take 1 (one) capsule by mouth 2 times daily * vitamin D, ergocalciferol, (Drisdol) 1.25 MG (34872 UT) capsule(Started 05/14/2022) Take 1 (one) capsule by mouth * ezetimibe (Zetia) 10 MG tablet(Started 01/15/2023) Take 1 (one) tablet by mouth once daily * furosemide (Lasix) 20 MG tablet(Started 11/23/2022) 1 (one) tablet * Enexdczgawy-Euvpatecy-Lqr C-Mn (Glucosamine Chondroitin Complx) CAPS Take 1 capsule by mouth once daily * HYDROcodone-acetaminophen ([place]) 5-325 MG tablet(Started 11/03/2021) * lamoTRIgine (LaMICtal) 100 MG tablet(Started 12/28/2022) Take 1 (one) tablet by mouth 2 times daily * latanoprost (Xalatan) 0.005 % ophthalmic solution(Started 12/21/2022) INSTILL 1 DROP IN BOTH EYES AT BEDTIME * levothyroxine (Synthroid) 88 MCG tablet(Started 07/13/2022) 1 (one) tablet * megestrol (Megace) 40 MG tablet(Started 01/14/2023) Take 1 (one) tablet by mouth 2 times daily * multivitamins (One A Day) capsule Take 1 (one) capsule by mouth * metFORMIN (Glucophage) 500 MG tablet(Started 09/18/2022) * nitroGLYCERIN (Nitrostat) 0.4 MG tablet Dissolve 1 (one) tablet under the tongue every 5 minutes as needed * OLANZapine (ZyPREXA) 2.5 MG tablet(Started 01/06/2023) Take 1 (one) tablet by mouth at bedtime * [place]-3 Fatty Acids (KP Fish Oil) 1200 MG Take 1 capsule by mouth * potassium chloride ER 10 MEQ tablet 1 tablet with food Orally once per day for 30 day(s) * primidone (Mysoline) 50 MG tablet(Started 01/20/2023) Take 1 (one) tablet by mouth 3 TIMES DAILY for 3 days,then 1 t po at hs * propranolol (Inderal) 40 MG tablet Take 1 (one) tablet by mouth 3 times daily * rosuvastatin (Crestor) 40 MG tablet(Started 01/15/2023) Take 1 (one) tablet by mouth at bedtime * Semaglutide(0.25 or 0.5MG/DOS) 2 MG/3ML Solution Pen-injector (Ozempic (0.25 or 0.5 MG/DOSE))(Started 10/14/2022) 0.5 mg * tamoxifen (Nolvadex) 20 MG tablet(Started 05/26/2022) Take 2 (two) tablets by mouth once daily Active Problems Problem Noted Date Diagnosed Date Thoracic radiculopathy 11/27/2022 Sacroiliitis 11/27/2022 02/01/2023 Thoracic spinal stenosis 11/27/2022 023 Trochanteric bursitis of both hips 11/27/2022 02/01/2023 Lung nodule seen on imaging study 04/10/2022 02/01/2023 Murmur 04/14/2021 02/01/2023 Leg edema 12/03/2020 02/01/2023 Precordial pain 12/03/2020 02/01/2023 Endometrial cancer 09/09/2017 02/01/2023 Arteriosclerosis of carotid artery, bilateral 02/01/2023 [place] on CPAP 06/26/2016 02/01/2023 Morbid obesity 01/21/2016 02/01/2023 Chronic GERD 01/14/2016 02/01/2023 Edema 09/04/2013 02/01/2023 Bipolar disorder 08/25/2012 02/01/2023 Drug-induced hypothyroidism 08/25/201201/05 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 02/01/2023 Hyperlipidemia 08/25/2012 02/01/2023 Prolapsing mitral leaflet syndrome [...] PM CDT Pulse 94 04/12/2023 1:38 PM DAMAGE CUTTER Temperature 36.6 C (97.8 F) 04/12/2023 1:38 PM DAMAGE CUTTER Respiratory Rate 20 04/12/2023 1:38 PM DAMAGE CUTTER Oxygen Saturation 100% 04/12/2023 1:38 PM DAMAGE CUTTER Inhaled Oxygen Concentration - - Weight 117.9 kg (260 lb) 11/08/2023 1:40 PM CDT Height 160 cm (5' 3 ) 11/08/2023 1:40 PM CDT Body Mass Index 46.06 11/08/2023 1:40 PM CDT Procedures * PET CT SKULL TO MID THIGH(Performed 04/07/2023) Performed for Endometrial cancer (HCC) Results * PET CT SKULL TO MID THIGH (04/07/2023 12:05 PM DAMAGE CUTTER) Anatomical Region Laterality Modality Head, Lower Extremity Positron E mission Tomography (PET) 04/07/2023 2:11 PM DAMAGE CUTTER Impressions 04/07/2023 3:36 PM DAMAGE CUTTER IMPRESSION: 1.Urinary contamination of the perineum and right vulva. Increased tracer activity within the vaginal canal, without definite CT correlate is felt to represent urinary contamination as well. Status post hysterectomy. Subtle increased tracer activity within the left aspect of the vaginal stump, maximum SUV of 5.0 is indeterminate for recurrence. Correlate with prior study. Also noted subtle soft tissue density within the left adnexa, measuring 1.1 x 1.2 cm, does not demonstrate increased FDG uptake, may represent prior treated disease. No definite evidence for hypermetabolic pelvic lymphadenopathy seen. Subcentimeter left para-aortic lymph node is indeterminate. 2.Area of consolidation in the right upper lobe with diffuse increased tracer activity, representing prior treated disease. No definite evidence for focal or nodular area of increased uptake identified in this region. No hypermetabolic pulmonary nodule elsewhere. 3.Enlarged left thyroid lobe with diffuse increased uptake. Recommend correlation with prior study/ultrasound of the thyroid gland. Edited by Bianca Velasquez on 04/07/2023 3:11 PM > Interpreting Provider: Nadine Trevizo MD on 04/07/2023 3:36 PM Narrative 04/07/2023 3:36 PM DAMAGE CUTTER PET/CT IMAGING WITH HARDWARE FUSION Subsequent treatment strategy DATE: 04/07/2023 12:06 PM PRIOR EXAM: None. HISTORY: Recurrent adenocarcinoma of the endometrium, status post hysterectomy, bilateral salpingooophorectomy and sentinel lymph node biopsy in 2018. Multiple brachytherapy treatments, last one in 2018. Most recent recurrence was identified in April 2022 metastatic pulmonary nodule and left pelvic lymph node, status post radiation therapy to both sites in September 2022. Restaging. PROCEDURE: Radiopharmaceutical: 18-F FDG Injected activity: 8.4 mCi Injection site: Left antecubital Uptake time: 63 minutes Blood glucose: 122 mg/dL. CT scan type: Skull base through mid thigh. CT technique: Noncontrast CT for attenuation correction and anatomic localization. Axial, sagittal, coronal and MIP images reviewed. All SUVs reported are maximal within the region of interest and have units of MBq/mL. Scan quality: Satisfactory. FINDINGS: Significant PET/CT findings: There is urinary contamination of the perineum, right vulva. Increased tracer activity within the vaginal canal, without definite CT correlate is felt to represent urinary contamination as well. Status post hysterectomy noted. There is subtle increased activity within the left aspect of the vaginal stump, demonstrating maximum SUV of 5.0. Also noted subtle soft tissue density lesion within the left adnexa, measuring approximately 1.1 x 1.2 cm. This does not demonstrate increased FDG uptake. Urinary activity within the adjacent left ureter noted. No bowel obstruction seen. Physiologic bowel activity within the sigmoid colon and rectum seen. There is a subcentimeter left para-aortic lymph node, demonstrating blood pool FDG avidity. No definite evidence for hypermetabolic retroperitoneal or mesenteric lymphadenopathy identified. There is area of consolidation seen in the right upper lobe, demonstrating diffuse increased tracer activity, maximum SUV of 4.7. No definite evidence of focal nodular area of increased uptake identified in this region. A groundglass nodular density seen in the left lower lobe, measures approximately 1.1 x 0.7 cm. This demonstrates maximum SUV of 2.2. No pleural effusion or hypermetabolic pleural nodularity seen. No mediastinal or hilar lymphadenopathy identified. No pericardial effusion seen. There is increased uptake within the left thyroid gland. The left thyroid gland appears enlarged in size with retrosternal extension. Maximum SUV within the left thyroid gland measures about 12.3 cm. Recommend correlation with prior study. Incidental PET/CT findings: No abnormal head and neck mucosal lesion is seen. Clear paranasal sinuses. Symmetric uptake in both parotid and submandibular glands. No definite evidence for hypermetabolic or enlarged cervical or supraclavicular lymphadenopathy identified. No axillary lymphadenopathy seen. No definite evidence of focal breast nodule or mass identified. The liver and spleen demonstrate expected parenchymal activity without focal lesion. Unremarkable adrenal glands, pancreas. Status post cholecystectomy. No hydronephrosis seen. Degenerative changes of the spine. No definite focal hypermetabolic osseous lesion identified to suggest osseous metastasis. Increased uptake within the left acromioclavicular joint, likely degenerative. Procedure Note Nadine Trevizo MD - 04/07/2023 PET/CT IMAGING WITH HARDWARE FUSION Subsequent treatment strategy DATE: 04/07/2023 12:06 PM PRIOR EXAM: None. HISTORY: Recurrent adenocarcinoma of the endometrium, status post hysterectomy, bilateral salpingooophorectomy and sentinel lymph nodebiopsy in 2018. Multiple brachytherapy treatments, last one in 2017. Mostrecent recurrence was identified in April 2022 metastatic pulmonary noduleand left pelvic lymph node, status post radiation therapy to both sites inJ2022. Restaging. PROCEDURE: Radiopharmaceutical: 18-F FDG Injected activity: 8.4 mCi Injection site: Left antecubital Uptake time: 63 minutes Blood glucose: 122 mg/dL. CT scan type: Skull base through mid thigh. CT technique: Noncontrast CT for attenuation correction andanatomic localization. Axial, sagittal, coronal and MIP images reviewed. All SUVs reported are maximal within the region of interest and haveunits of MBq/mL. Scan quality: Satisfactory. FINDINGS: Significant PET/CT findings: There is urinary contamination of the perineum, right vulva. Increased tracer activity within the vaginalcanal, without definite CT correlate is felt to represent urinary contaminationas well. Status post hysterectomy noted. There is subtle increased activity within the left aspect of the vaginal stump, demonstrating maximum SUVof 5.0. Also noted subtle soft tissue density lesion within the leftadnexa, measuring approximately 1.1 x 1.2 cm. This does not demonstrateincreased FDG uptake. Urinary activity within the adjacent left ureter noted. No bowel obstruction seen. Physiologic bowel activity within the sigmoidcolon and rectum seen. There is a subcentimeter left para-aortic lymph node, demonstratingblood pool FDG avidity. No definite evidence for hypermetabolicretroperitoneal or mesenteric lymphadenopathy identified. There is area of consolidation seen in the right upper lobe,demonstrating diffuse increased tracer activity, maximum SUV of 4.7. No definiteevidence of focal nodular area of increased uptake identified in this region. A groundglass nodular density seen in the left lower lobe, measures approximately 1.1 x 0.7 cm. This demonstrates maximum SUV of 2.2. No pleural effusion or hypermetabolic pleural nodularity seen. Nomediastinal or hilar lymphadenopathy identified. No pericardial effusion seen. There is increased uptake within the left thyroid gland. The leftthyroid gland appears enlarged in size with retrosternal extension. Maximum SUV within the left thyroid gland measures about 12.3 cm. Recommendcorrelation with prior study. Incidental PET/CT findings: No abnormal head and neck mucosal lesion is seen. Clear paranasal sinuses. Symmetric uptake in both parotid and submandibular glands. No definite evidence for hypermetabolic orenlarged cervical or supraclavicular lymphadenopathy identified. No axillary lymphadenopathy seen. No definite evidence of focal breast nodule ormass identified. The liver and spleen demonstrate expected parenchymalactivity without focal lesion. Unremarkable adrenal glands, pancreas. Status post cholecystectomy. No hydronephrosis seen. Degenerative changes of thespine. No definite focal hypermetabolic osseous lesion identified to suggest osseous metastasis. Increased uptake within the left acromioclavicular joint, likely degenerative. IMPRESSION: 1.Urinary contamination of the perineum and right vulva. Increasedtracer activity within the vaginal canal, without definite CT correlate is feltto represent urinary contamination as well. Status post hysterectomy.Subtle increased tracer activity within the left aspect of the vaginal stump, maximum SUV of 5.0 is indeterminate for recurrence. Correlate with prior study. Also noted subtle soft tissue density within the left adnexa, measuring 1.1 x 1.2 cm, does not demonstrate increased FDG uptake, may represent prior treated disease. No definite evidence for hypermetabolic pelvic lymphadenopathy seen. Subcentimeter left para-aortic lymph nodeis indeterminate. 2.Area of consolidation in the right upper lobe with diffuse increased tracer activity, representing prior treated disease. No definiteevidence for focal or nodular area of increased uptake identified in this region.No hypermetabolic pulmonary nodule elsewhere. 3.Enlarged left thyroid lobe with diffuse increased uptake. Recommend correlation with prior study/ultrasound of the thyroid gland. Edited by Bianca Velasquez on 04/07/2023 3:11 PM > Interpreting Provider: Nadine Trevizo MD on 04/07/2023 3:36 PM Kenny Schrader MD NM ORDERABLES Care Teams Private Branch Exchange Service Advisor Relationship Specialty Start Date End Date Unknown, Provider PCP - General 02/01/23
--- OUTSIDE RECORDS SUMMARY | 2024-05-12 12:52 | XMS_ITS | Encounter Summary ---
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 Foraminal stenosis of thoracic region Sacroiliitis (CMS/HCC) Thoracic radiculopathy Thoracic spinal stenosis Chronic bilateral low back pain with bilateral sciatica Procedures MRI THOR SPINE WO CON Carly Villagomez NP [address] [place] [address] Phone: tel: fax: Referral ID Status Reason Start Date Expiration Date V isits Requested Visits Authorized [id number] New Request 05/11/2024 05/11/2025 1 1 MICS ARTIST * Imaging (Routine) - New Request Specialty Diagnoses / Procedures Referred By Contac t Referred To Contact RADIOLOGY Diagnoses Bulging of thoracic intervertebral disc without myelopathy Foraminal stenosis of thoracic region Sacroiliitis (CMS/HCC) Thoracic radiculopathy Thoracic spinal stenosis Chronic bilateral low back pain with bilateral sciatica Procedures MRI LUMB SPINE W CON Carly Villagomez NP [address] [place] [address] Phone: tel: fax: Referral ID Status Reason Start Date Expiration Date V isits Requested Visits Authorized [id number] New Request 05/11/2024 06/10/2025 1 1 MICS ARTIST Reason for Visit * Reason Onset Date Comments Callback 05/09/2024 Encounter Details Date Type Department Care Team (Late st Contact Info) Description 05/09/2024 Telephone [facility] Family and [facility] Medicine - [place] [address] [place] [address] Carly Villagomez NP [address] [place] [address] Callback Social History Tobacco Use Types Packs/Day Years Used Date Smoking Tobacco: Never Passive Smoke Exposure: Never Smokeless Tobacco: Never Alcohol Use Standard Drinks/Week Comments Not Currently 0 (1 standard drink = 0.6 oz pure alcohol) twice a year, 2 glasses of wine [employer] Answer Date Recorded In the past 12 months has [employer] gas, oil, or water [employer] threatened to shut off services in your [...] Sex Assigned at Female 05/02/2024 10:36 AM CERAMICS ARTIST Legal Sex Female 7:53 PM CDT Gender [...] Assessment Author Status No 02/22/2023 12:00 PM CERAMICS ARTIST Olga Foster RN Active * Because of a physical, mental, or emotional condition, do you have difficulty doing errands alone such as visiting a doctor's office or shopping? Answer Date of Assessment Author Status No 02/22/2023 12:00 PM CERAMICS ARTIST Olga Foster RN Active documented as of this encounter Mental Status * Because of a physical, mental, or emotional condition, do you have serious difficulty concentrating, remembering, or making decisions? Answer Entry Date Author Status No 02/22/2023 12:00 PM CERAMICS ARTIST Olga Foster RN Active documented in this encounter Progress Notes * Rosenda Tejada MA - 05/11/2024 3:55 PM CST Pt. Informed. MICS ARTIST * nAa Avendano CMA - 05/10/2024 11:20 AM CST Called pt. She stated the temp pain stimulator is out and her pain is 95% gone. Pt states she is wanting her whole back MRI because she was approved to see Dr Simona Josue for surgery and is hoping if having MRI completed will help speed along the process. Pt informed Carly is out of office today so we will call her back with an update tomorrow. MICS ARTIST * America Dowd - 05/09/2024 1:27 PM CST Pt is asking to speak to a nurse to help her determine if she needs mri fordered Pt ph. [phone] MICS ARTIST documented in this encounter Plan of Treatment Upcoming Encounters Date Type Department Care Team (Late st Contact Info) Description 07/10/2024 11:20 AM CDT Office Visit [facility] - [facility] [address] [place] [address] Rene Sage DO [address] [place] [address] 08/01/2024 12:30 PM CDT Appointment [facility] [place] [address] Chay Marshall MD [address] [id number] 08/01/2024 1:30 PM CDT Appointment [facility] [place] [address] Chay Marshall MD [facility] [address] 09/26/2024 1:00 PM CDT [facility] [address] [facility], [address] [address] Thien Cooper MD Three [facility]. 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 Foraminal stenosis of thoracic region Sacroiliitis (CMS/HCC) Thoracic radiculopathy Thoracic spinal stenosis Chronic bilateral low back pain with bilateral sciatica Expected: 05/11/2024, Expires: 05/11/2025 MRI THOR SPINE WO CON MRI Routine Bulging of thoracic intervertebral disc without myelopathy Foraminal stenosis of thoracic region Sacroiliitis (CMS/HCC) Thoracic radiculopathy Thoracic spinal stenosis Chronic bilateral low back pain with bilateral sciatica Expected: 05/11/2024, Expires: 05/11/2025 documented as of this encounter Goals Goal Patient Goal Type Associated Problems Recent Progress Patient-Stated? Author Patient will return to prior living situation and remain independent in ADLs upon discharge from hospital Lifestyle No Andreea Thomas, CLINICAL NURSE documented as of this encounter Visit Diagnoses Diagnosis Bulging of thoracic intervertebral disc without myelopathy- Primary Foraminal stenosis of thoracic region Spinal stenosis of thoracic region Sacroiliitis (CMS/HCC) Sacroiliitis, not elsewhere classified Thoracic radiculopathy Thoracic or lumbosacral neuritis or radiculitis, unspecified Thoracic spinal stenosis Spinal stenosis of thoracic region Chronic bilateral low back pain with bilateral sciatica documented in this encounter Additional Health Concerns Assessment Noted Time PHQ-9 Depression Total Score: 18 024 10:47 AM CERAMICS ARTIST documented as of this encounter Care Teams Joist Setter Relationship Specialty Start Date End Date Carly Villagomez, STORAGE SOLUT[employer] ARCHITECT [address] [place] [address] PCP - General Nurse Practitioner Family 11/02/16 documented as of this encounter
--- OUTSIDE RECORDS SUMMARY | 2024-05-12 12:52 | XMS_ITS | Encounter Summary ---
Author Organization [facility] Address [address] [place] [id number] Care Team Providers Care Power And Recovery Supervisor Name Role Phone Carly Villagomez CENTRAL OFFICE TROUBLE SHOOTER Primary Care Provider + Encounter Details Date Type Department Care Team (Late st Contact Info) Description 03/15/2020 [facility] Message [facility] - [place] [address] [place] [address] Carly Villagomez, CENTRAL OFFICE TROUBLE SHOOTER [address] [place] [address] RE: Question Social History Tobacco Use Types Packs/Day Years Used Date Smoking Tobacco: Never Smokeless Tobacco: Never Alcohol Use Standard Drinks/Week Comments No 0 (1 standard drink = 0.6 oz pur e alcohol) AUDIT-C Answer Date Recorded Frequency of Alcohol Consumption Never 06/27/2018 Average Number of Drinks Not on file 019 Frequency of Binge Drinking Not on file 06/04 PHQ-2 Answer Date Recorded PHQ-2 Score - If the patient scores above 3, please move on to questions 3-9 2 12/12/2019 Comments No Sex and Gender Information Value Date Recorded Sex Assigned at Female 05/02/2024 10:36 AM CHART CALCULATOR Legal Sex Female 7:53 PM CDT Gender Identity Not on file Sexual Orientation Not on file COVID-19 Exposure Response Date Recorded In the last month, have you been in contact with someone who was confirmed or suspected to have Coronavirus / COVID-19? No / Unsure 03/15/2020 2:21 PM CHART CALCULATOR documented as of this encounter Plan of Treatment Upcoming Encounters Date Type Department Care Team (Late st Contact Info) Description 07/10/2024 11:20 AM CDT [facility] [address] [place] [place] [address] Rene Sage DO [address] [place] [address] 08/01/2024 12:30 PM CDT Appointment [facility] [address] [facility] [place] [address] Chay Marshall MD [address] [facility] [address] [place], [place] [id number] 08/01/2024 1:30 PM CDT Appointment [facility] [address] [facility] [place] [address] Chay Marshall MD [address] [address] 09/26/2024 1:00 PM CDT Office Visit [facility] [address] [facility] [facility] [place] [address] Thien Cooper MD [address] [place], [place] [address] documented as of this encounter Visit Diagnoses [...] documented as of this encounter Care Teams Power And Recovery Supervisor Relationship Specialty Start Date End Date Carly Villagomez NP [address] [place] [address] PCP - General Nurse Practitioner Family 11/02/16 documented as of this encounter
--- OUTSIDE RECORDS SUMMARY | 2024-05-12 12:52 | XMS_ITS | Encounter Summary ---
Author Organization [facility] Address [address] [place] [address] Care Team Providers Care Certified Fire Investigator Name Role Phone Carly Villagomez GRADES 1 THRU 6 HOME TEACHER Primary Care Provider + Encounter Details Date Type Department Care Team (Late st Contact Info) Description 05/10/2024 MyChart Message Enc [facility] Medical Group Family and Sports Medicine - [place] [address] [place] [address] Carly Villagomez, GRADES 1 THRU 6 HOME TEACHER [address] [place] [address] Blood test Social History Tobacco Use Types Packs/Day Years Used Date Smoking Tobacco: Never Passive Smoke Exposure: Never Smokeless Tobacco: Never Alcohol Use Standard Drinks/Week Comments Not Currently 0 (1 standard drink = 0.6 oz pure alcohol) twice a year, 2 glasses of wine [facility] Utilities Answer Date Recorded In the past [address] [facility] [employer], gas, oil, or water [employer] threatened to shut off services in your [...] place to sleep or slept in a skilled nursing (including now)? No 02/21/2023 Comments No Sex and Gender Information Value Date Recorded Sex Assigned at Female 05/02/2024 10:36 AM FINANCIAL DIRECTOR Legal Sex Female 7:53 PM CDT [...] documented in this encounter Progress Notes * Carly Villagomez NP - 05/11/2024 9:53 AM CST ordered NCIAL DIRECTOR documented in this encounter Plan of Treatment Upcoming Encounters Date Type Department Care Team (Late st Contact Info) Description 07/10/2024 11:20 AM CDT Office Visit [facility] Medical Group Multispecialty Care - [facility] [address] [place] [phone] Rene Sage DO [address] [place] [address] 08/01/2024 12:30 PM CDT Appointment [facility] [address] Chay Marshall MD [address] [address] 08/01/2024 1:30 PM CDT Appointment [facility] [address] Chay Marshall MD [address] [address] 09/26/2024 1:00 PM CDT Office Visit [facility] THREE [facility] [address] [place], [place] [address] Thien Cooper MD [facility]. [address] [address] Scheduled Orders Name Type Priority Associated Diagnoses Orde r Schedule HEPATIC FUNCTION PANEL Lab Routine Elevated liver enzymes Expected: 05/11/2024, Expires: 05/11/2025 documented as of this encounter Goals Goal Patient Goal Type Associated Problems Recent Progress Patient-Stated? Author Patient will return to prior living situation and remain independent in ADLs upon discharge from hospital Lifestyle No Andreea Thomas, CISTERN ROOM WORKING SUPERVISOR documented as of this encounter Visit Diagnoses Diagnosis Elevated liver enzymes- Primary Nonspecific elevation of levels of transaminase or lactic acid dehydrogenase (LDH) documented in this encounter Additional Health Concerns Assessment Noted Time PHQ-9 Depression Total Score: 18 024 10:47 AM FINANCIAL DIRECTOR documented as of this encounter Care Teams Certified Fire Investigator Relationship Specialty Start Date End Date Carly Villagomez NP [address] [place] [address] PCP - General Nurse Practitioner Family 11/02/16 documented as of this encounter
--- OUTSIDE RECORDS SUMMARY | 2024-05-12 12:52 | XMS_ITS | Encounter Summary ---
Author Organization [facility] Address [address] [place] [address] Care Team Providers Care Project Estimator Name Role Phone Carly Villagomez TRACY Primary Care Provider [phone] Encounter Details Date Type Department Care Team (Late st Contact Info) Description 03/24/2024 Orthogem Message Enc [facility] THREE [address] [address] Thien Cooper MD [address] [phone] Searching for pain relief for back/shoulder Social History Tobacco Use Types Packs/Day Years Used Date Smoking Tobacco: Never Passive Smoke Exposure: Never Smokeless Tobacco: Never Alcohol Use Standard Drinks/Week Comments Not Currently 0 (1 standard drink = 0.6 oz pure alcohol) twice a year, 2 glasses of wine [facility] Utilities Answer Date Recorded In the past 12 months has [facility] [employer], gas, oil, or water [employer] threatened to shut off services in your [...] place to sleep or slept in a long term (including now)? No 02/21/2023 Comments No Sex and Gender Information Value Date Recorded Sex Assigned at Female 05/02/2024 10:36 AM FLOOR BROKER Legal Sex Female 7:53 PM CDT Gender [...] encounter Progress Notes * RHONA Ribera - 03/27/2024 2:45 PM CST Would have her reach out to her PCP regarding meds for pain control. NSAIDS can be used in the short term, not long since on blood thinners. PCP would need to follow up on her LFTs as well to see whythey are elevated. R BROKER documented in this encounter Plan of Treatment Upcoming Encounters Date Type Department Care Team (Late st Contact Info) Description 07/10/2024 11:20 AM CDT Office [facility] Medical Group Multispecialty Care - [address] [place] [address] Rene Sage, [address] [place] [address] 08/01/2024 12:30 PM CDT Appointment [facility] [address] Chay Marshall MD 1414 [facility] [address] [place] [address] 08/01/2024 1:30 PM CDT Appointment [facility] [place] [address] Chay Marshall MD 1414 [facility] [address] [place] [address] 09/26/2024 1:00 PM CDT Office Visit [facility] [facility] [address] [place] [address] Thien Cooper MD Three [facility]. [address] [place] [address] documented as of this encounter Goals Goal Patient Goal Type Associated Problems Recent Progress Patient-Stated? Author Patient will return to prior living situation and remain independent in ADLs upon discharge from hospital Lifestyle No Andreea Thomas, [employer] TEACHER documented as of this encounter Visit Diagnoses Not on filedocumented in this encounter Additional Health Concerns Assessment Noted Time PHQ-9 Depression Total Score: 18 024 10:47 AM FLOOR BROKER documented as of this encounter Care Teams Project Estimator Relationship Specialty Start Date End Date Carly Villagomez, GRINDER BRAKE LINING [address] [place] [address] PCP - General Nurse Practitioner Family 11/02/16 documented as of this encounter
--- OUTSIDE RECORDS SUMMARY | 2024-05-12 12:52 | XMS_ITS | Encounter Summary ---
Author Organization [facility] Address [address] [place] [address] Care Team Providers Care Computer Programmer Analyst Name Role Phone Carly Villagomez TIE BUYER Primary Care Provider [phone] Encounter Details Date Type Department Care Team (Late st Contact Info) Description 01/31/2024 MyCSRC Computerst Message Enc [facility] Medical Group Family and Sports Medicine - [place] [address] [place] [address] Carly Villagomez, TIE BUYER [address] [place] [address] Test results Social History Tobacco Use Types Packs/Day Years Used Date Smoking Tobacco: Never Smokeless Tobacco: Never Alcohol Use Standard Drinks/Week Comments Not Currently 0 (1 standard drink = 0.6 oz pure alcohol) twice a year, 2 glasses of wine [facility] Utilities Answer Date Recorded In the past 12 months has [facility] [employer], gas, oil, or water [employer] threatened to shut off services in your [...] Sex Assigned at Female 05/02/2024 10:36 AM RESEARCH LABORATORY TECHNICIAN Legal Sex Female 7:53 PM CDT [...] Description 07/10/2024 11:20 AM CDT Office Visit [facility] Medical Group Multispecialty Care - [facility] [address] [place] [address] Rene Sage DO [address] [place] [address] 08/01/2024 12:30 PM CDT Appointment [facility] [address] [facility] [address] Chay Marshall MD [address] [place] [address] 08/01/2024 1:30 PM CDT Appointment [facility] [place] [place] [address] Chay Marshall MD [address] [address] 09/26/2024 1:00 PM CDT Office Visit [facility] THREE [facility], [facility] [address] [place], [place] [address] Thien Cooper MD Three [facility]. [facility] [address] [place], [place] [address] documented as of this encounter Goals Goal Patient Goal Type Associated Problems Recent Progress Patient-Stated? Author Patient will return to prior living situation and remain independent in ADLs upon discharge from hospital Lifestyle No Andreea Thomas, SPRAY DRIER OPERATOR HELPER documented as of this encounter Visit Diagnoses Not on filedocumented in this encounter Additional Health Concerns Assessment Noted Time PHQ-9 Depression Total Score: 11 023 4:03 PM CDT documented as of this encounter Care Teams Computer Programmer Analyst Relationship Specialty Start Date End Date Carly Villagomez TIE BUYER [address] [place] [address] PCP - General Nurse Practitioner Family 11/02/16 documented as of this encounter
--- OUTSIDE RECORDS SUMMARY | 2024-05-12 12:52 | XMS_ITS | Encounter Summary ---
Author Organization [facility] Address [address] [place] [address] Phone Care Team Providers Care Driver Wheelchair Name Role Phone Carly Villagomez APN Primary Care Provider [phone] Carly Villagomez APN Unavailable Shay Miranda DO Unavailable [phone] Shay Miranda DO Unavailable [phone] Reason for Visit * Reason Comments Medication Refill Encounter Details Date Type Department Care Team (Late st Contact Info) Description 12/01/2022 Refill [facility] [address] [place] [address] Shay Miranda, DO [address] [place] [address] Medication Refill Social History Tobacco Use Types Packs/Day Years Used Date Smoking Tobacco: Never Smokeless Tobacco: Never Alcohol Use Standard Drinks/Week Comments Yes 0 (1 standard drink = 0.6 oz pur e alcohol) PHQ-2 Answer Date Recorded Total Score - Questions 1-9 14 04/06 Comments No Sex and Gender Information Value Date Recorded Sex Assigned at Not on file Legal Sex Female 3:11 PM CDT Gender Identity Not on file Sexual Orientation Not on file COVID-19 Exposure Response Date Recorded In the last 10 days, have yo u been in contact with someone who was confirmed or suspected to have Coronavirus/COVID-19? No / Unsure 11/10/2022 2:30 PM CDT documented as of this encounter Plan of Treatment Upcoming Encounters Date Type Department Care Team (Late st Contact Info) Description 05/15/2024 8:30 AM MANAGER MATERIAL Ancillary Procedure [facility] [address] [address] 05/16/2024 1:15 PM MANAGER MATERIAL Office Visit [facility] [address] [address] Shay Miranda DO [address] [place] [address] documented as of this encounter Visit Diagnoses Not on filedocumented in this encounter Additional Health Concerns Assessment Noted Time PHQ-9 Depression Total Score: 14 023 10:45 AM MANAGER MATERIAL documented as of this encounter Care Teams Driver Wheelchair Relationship Specialty Start Date End Date Carly Villagomez APN [address] [place] [address] PCP - General Advanced Practice Nurse 01/08/22 Carly Villagomez APN [address] [place] [address] Advanced Practice Nurse 01/08/22 Shay Miranda DO [address] [place] [phone] Consulting Physician Oncology 01/07/22 Shay Miranda DO [address] [place] [phone] Consulting Physician Oncology 01/08/22 documented as of this encounter
--- OUTSIDE RECORDS SUMMARY | 2024-05-12 12:52 | XMS_ITS | Encounter Summary ---
Author Organization [facility] Address [address] [place] [address] Care Team Providers Care Ink Technician Name Role Phone HernandoCarly Radha MOLINA Primary Care Provider [phone] Encounter Details Date Type Department Care Team (Latest Contact Info) Description 03/20/[address] [facility] Multispecialty Care - [facility] [address] [facility] [place] [phone] Bárbara Hart APRN [address] [facility] [address] [place] [address] Letter in my records Social History Tobacco Use Types Packs/Day Years Used Date Smoking Tobacco: Never Passive Smoke Exposure: Never Smokeless Tobacco: Never Alcohol Use Standard Drinks/Week Comments Not Currently 0 (1 standard drink = 0.6 oz pure alcohol) twice a year, 2 glasses of wine [facility] Utilities Answer Date Recorded In the past 12 months has [facility] [employer], gas, oil, or water [employer] threatened to shut off services in your [...] place to sleep or slept in a detention (including now)? No 02/21/2023 Comments No Sex and Gender Information Value Date Recorded Sex Assigned at Female 05/02/2024 10:36 AM CHUCKER Legal Sex Female 7:53 PM CDT Gender [...] 11:20 AM CDT Office Visit [facility] Medical [facility] Multispecialty Care - [facility] [address] [facility] [place] [address] Rene Sage, 3 [facility] [address] [place] [address] 08/01/2024 12:30 PM CDT Appointment [facility] M[facility]ography [address] [facility] [place] [address] Chay Marshall MD 1414 [facility] [address] [place], [place] [phone] 08/01/2024 1:30 PM CDT Appointment [facility] ONE [facility] [place] [address] Chay Marshall MD [address] [address] 09/26/2024 1:00 PM CDT Office Visit [facility] THREE [facility] [address] [place], [place] [phone] Thien Cooper MD Three [facility]. [address] [phone] documented as of this encounter Goals Goal Patient Goal Type Associated Problems Recent Progress Patient-Stated? Author Patient will return to prior living situation and remain independent in ADLs upon discharge from hospital Lifestyle No Andreea Thomas, GAS CHARGER documented as of this encounter Visit Diagnoses Not on filedocumented in this encounter Additional Health Concerns Assessment Noted Time PHQ-9 Depression Total Score: 18 024 10:47 AM CHUCKER documented as of this encounter Care Teams Ink Technician Relationship Specialty Start Date End Date Carly Villagomez NP [address] [place] [address] PCP - General Nurse Practitioner Family 11/02/16 documented as of this encounter
--- OUTSIDE RECORDS SUMMARY | 2024-05-12 12:52 | XMS_ITS | Encounter Summary ---
Author Organization [facility] Address [address] [place] [address] Care Team Providers Care Painter Helper Name Role Phone Carly Villagomez NP Primary Care Provider [phone] Reason for Referral * Surgical (Routine) - New Request Specialty Diagnoses / Procedures Referred By Yosef jim Referred To Contact Diagnoses Thoracic radiculopathy Procedures Case request operating room: IMPLANT STIMULATOR SPINAL CORD TRIAL Edy Ramirez CNP [address] [address] Phone: tel: [phone] fax: Referral ID Status Reason Start Date Expiration Date V isits Requested Visits Authorized [id number] New Request 03/20/2024 03/20/2025 1 1 H GRADER SUPERVISOR Encounter Details Date Type Department Care Team (Late st Contact Info) Description 03/20/[address] [facility] [place] [address] [id number] Edy Ramirez CNP 3 [facility] [address] [phone] (Work) Social History Tobacco Use Types Packs/Day Years Used Date Smoking Tobacco: Never Passive Smoke Exposure: Never Smokeless Tobacco: Never Alcohol Use Standard Drinks/Week Comments Not Currently 0 (1 standard drink = 0.6 oz pure alcohol) twice a year, 2 glasses of wine [facility] Utilities Answer Date Recorded In the past 12 months has th e [employer], gas, oil, or water [employer] threatened to shut off services in your [...] place to sleep or slept in a intermediate (including now)? No 02/21/2023 Comments No Sex and Gender Information Value Date Recorded Sex Assigned at Female 05/02/2024 10:36 AM CLOTH GRADER SUPERVISOR Legal Sex Female 7:53 PM CDT Gender [...] Description 07/10/2024 11:20 AM CDT Office Visit [facility] Medical Group [facility] [address] [place] [address] Rene Sage DO [address] [place] [address] 08/01/2024 12:30 PM CDT Appointment [facility] [address] [facility] [address] Chay Marshall MD [facility] [address] 08/01/2024 1:30 PM CDT Appointment [facility] [place] [address] Chay Marshall MD [facility] [address] 09/26/2024 1:00 PM CDT Office Visit [facility] [address] [facility] [address] [place] [address] Thien Cooper MD Three [facility]. [address] [place], [place] [address] documented as of this encounter Goals Goal Patient Goal Type Associated Problems Recent Progress Patient-Stated? Author Patient will return to prior living situation and remain independent in ADLs upon discharge from hospital Lifestyle No Andreea Thomas MSW documented as of this encounter Visit Diagnoses Diagnosis Thoracic radiculopathy- Primary Thoracic or lumbosacral neuritis or radiculitis, unspecified documented in this encounter Additional Health Concerns Assessment Noted Time PHQ-9 Depression Total Score: 18 024 10:47 AM CLOTH GRADER SUPERVISOR documented as of this encounter Care Teams Painter Helper Relationship Specialty Start Date End Date Carly Villagomez, TRACY [address] [place] [address] PCP - General Nurse Practitioner Family 11/02/16 documented as of this encounter
--- OUTSIDE RECORDS SUMMARY | 2024-05-12 12:52 | XMS_ITS | Encounter Summary ---
Author Organization [facility] Address [address] [place] [address] Care Team Providers Care Electrical And Instrumentation Mechanic Name Role Phone Carly Villagomez INDUSTRIAL RELATIONS MANAGER Primary Care Provider [phone] Encounter Details Date Type Department Care Team (Late st Contact Info) Description 05/09/2020 MyCWeStoret Message Enc [facility] Medical Group Family and Sports Medicine - [place] [address] [place] [address] Carly Villagomez, INDUSTRIAL RELATIONS MANAGER [address] [place] [address] RE: Follow Up/Update Social History Tobacco Use Types Packs/Day Years [...] Sex Assigned at Female 05/02/2024 10:36 AM DOCUMENT SCANNER Legal Sex Female 7:53 PM CDT Gender Identity Not on file Sexual Orientation Not on file COVID-19 Exposure Response Date Recorded In the last month, have you been in contact with someone who was confirmed or suspected to have Coronavirus / COVID-19? No / Unsure 05/07/2020 9:53 AM DOCUMENT SCANNER documented as of this encounter Progress Notes * Carly Villagomez NP - 05/09/2020 2:22 PM CST Waiting for final throat culture MENT SCANNER * Dory Guillaume MA - 05/09/2020 2:07 PM CST Please advise MENT SCANNER documented in this encounter Plan of Treatment Upcoming Encounters Date Type Department Care Team (Late st Contact Info) Description 07/10/2024 11:20 AM CDT Office Visit [facility] Medical Group Multispecialty Care - [facility] [address] [place] [address] Rene Sage DO [address] [place] [address] 08/01/2024 12:30 PM CDT Appointment [facility] [place] [address] Chay Marshall MD [facility] [address] 08/01/2024 1:30 PM CDT Appointment [facility] [address] [facility] [place] [address] Chay Marshall MD [facility] [address] 09/26/2024 1:00 PM CDT Office Visit [facility] THREE [facility], [facility] [address] [place] [address] Thien Cooper MD Three [facility]. [facility] [address] [place] [address] documented as of this encounter Visit Diagnoses [...] as of this encounter Care Teams Electrical And Instrumentation Mechanic Relationship Specialty Start Date End Date Carly Villagomez NP [address] [place] [address] PCP - General Nurse Practitioner Family 11/02/16 documented as of this encounter
--- OUTSIDE RECORDS SUMMARY | 2024-05-12 12:52 | XMS_ITS | Clinical Summary ---
Author Organization [facility] Address [address] [facility] [place] [address] Care Team Providers Care Manager Business Banking Name Role Phone Unknown, Provider Primary Care Provider Unavaila ble Source Comments [facility],non-owned Affiliates and Associated Physician Practices is amultiple site organization consisting of ambulatory clinics and hospital sitesin [place], [place], [place] and [place]. This disclosure is being madepursuant to the Care Everywhere program and may not contain all information available regarding this patient. Last updated 17.[facility] Allergies Active Allergy Reactions Criticality Noted Date Comments Carbamazepine Unknown,Vomiting Low 08/25/2012 Reaction: Vomiting, Reaction: Vomiting, [place]ovis Unknown 08/25/2012 Nisoldipine Unknown 07/06/2022 Nitrofurantoin Rash Medium 06/19/2021 Pravastatin Shortness of Breath,Palpitations,Unk nown High 08/25/2012 Reaction: Chest Pain, Curlew like having heart attack, pt states went [...] 81 MG tablet 1 (one) tablet Active yzolaxh-uhhmuzslh-yeeg 333-133-5 MG tablet Take 1 (one) tablet by mouth at bedtime Active DULoxetine (Cymbalta) 30 MG capsule Take 1 (one) capsule by mouth 2 times daily 01/28/2023 Active vitamin D, ergocalciferol, (Drisdol) 1.25 MG (29703 UT) capsule Take 1 (one) capsule by mouth 05/14/2022 Active ezetimibe (Zetia) 10 MG tablet Take 1 (one) tablet by mouth once daily 01/15/2023 Active furosemide (Lasix) 20 MG tablet 1 (one) tablet 11/23/2022 Active Glucosamine-Chondroit- Vit C-Mn (Glucosamine Chondroitin Complx) CAPS Take 1 capsule by mouth once daily Active HYDROcodone-acetaminop hen ([place]) 5-325 MG tablet 11/03/2021 Active lamoTRIgine (LaMICtal) [...] tablet by mouth at bedtime 01/06/2023 Active [place]-3 Fatty Acids (KP Fish Oil) 1200 MG [...] (02/01/2023): Added automatically from request for surgery [id number] Arteriosclerosis of carotid artery, bilateral 02/01/2023 ISRAEL on CPAP 06/26/2016 02/01/2023 Morbid obesity 01/21/2016 02/01/2023 Chronic GERD 01/14/2016 02/01/2023 Edema 09/04/2013 02/01/2023 Bipolar disorder 08/25/2012 02/01/2023 Drug-induced hypothyroidism 08/25/201201/05 Overview (02/01/2023): Description: managed by Dr. Don psychiatry - on cymotel. 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 Encounters Date Type Department Care Team Description 03/31/2024 Telephone [facility] - BAGGAGE HANDLING SUPERVISOR [address] [facility] [address] [place] [phone] Kenny Schrader MD from Last 3 Months Family History Medical History Relation Name Comments Cancer Brother None Known Father None Known Maternal Grandfather None Known Maternal Grandmother None Known Mother None Known Other None Known Paternal Grandfather None Known Paternal Grandmother None Known Sister Relation Name Status Comments Brother Father Maternal Grandfather Maternal Grandmother Mother Other Paternal Grandfather Paternal Grandmother Sister Social History Tobacco Use Types Packs/Day Years [...] PM CDT Pulse 94 04/12/2023 1:38 PM TRANSMISSION AND PROTECTION ENGINEER Temperature 36.6 C (97.8 F) 04/12/2023 1:38 PM TRANSMISSION AND PROTECTION ENGINEER Respiratory Rate 20 04/12/2023 1:38 PM TRANSMISSION AND PROTECTION ENGINEER Oxygen Saturation 100% 04/12/2023 1:38 PM TRANSMISSION AND PROTECTION ENGINEER Inhaled Oxygen Concentration - - Weight 117.9 kg (260 lb) 11/08/2023 1:40 PM CDT Height 160 cm (5' 3 ) 11/08/2023 1:40 PM CDT Body Mass Index 46.06 11/08/2023 1:40 PM CDT Plan of Treatment Upcoming Encounters Date Type Department Care Team (Late st Contact Info) Description 05/19/2024 10:00 AM TRANSMISSION AND PROTECTION ENGINEER Office Visit [facility] - Surg Oncology [address] [place] [phone] Kenny Schrader MD [address] [facility] [address] [place] [address] Health Maintenance Due Date Last Done Comments COLOGUARD (AGES 45-75) - COLON CA SCREENING 1959 COLON MONITORING 1959 COLONOSCOPY - COLON CA SCREENING 1959 CT COLONOGRAPHY - COLON CA SCREENING 1959 Colorectal Cancer Screening 1959 FIT - COLON CA SCREENING 1959 FLEX SIG - COLON CA SCREENING 1959 PAP SMEAR 1959 HIV SCREENING 06/06/1974 HEPATITIS C SCREENING 06/02/1977 DTAP/TDAP/TD VACCINES (1 - Tdap) 06/06/1978 PNEUMOCOCCAL VACCINE 50+ (1 of 1 - PCV) 06/06/2009 ZOSTER VACCINE (1 of 2) 06/06/2009 Respiratory Syncytial Virus (RSV) Vaccine Pt: or over 60 yrs (1 - Risk 60-74 years 1-dose series) 2019 SCREENING FOR DIABETES 04/12/2023 COVID-19 VACCINE ( season) 2023 01/20/2023, 05/20/2021, 07/18/2020, Additional history exists INFLUENZA VACCINE (#1) 2023 , 05/20/2021, 12/12/2019, Additional history exists MAMMOGRAM 07/29/2025 07/30/2023, 07/05, 07/30/2023, Additional history exists HEPATITIS B VACCINE Aged Out No longe r eligible based on patient's age to complete this topic HIB VACCINE Aged Out No longer eligi ble based on patient's age to complete this topic HPV VACCINE Aged Out No longer eligi ble based on patient's age to complete this topic MENINGOCOCCAL (Group B) VACCINE Aged Out No longer eligible based on patient's age to complete this topic MENINGOCOCCAL VACCINE Aged Out No emily heaven eligible based on patient's age to complete this topic Care Teams Manager Business Banking Relationship Specialty Start Date End Date Unknown, Provider PCP - General 02/01/23
--- OUTSIDE RECORDS SUMMARY | 2024-05-12 12:52 | XMS_ITS | Encounter Summary ---
Author Organization [facility] Address [address] [place] [address] Care Team Providers Care Energy Scheduler Name Role Phone Carly Villagomez FINISH SAW OPERATOR Primary Care Provider [phone] Encounter Details Date Type Department Care Team (Late st Contact Info) Description 07/09/2020 MyCAnageart Message Enc [facility] Family and Sports Medicine - [place] [address] [place] [address] Carly Villagomez, FINISH SAW OPERATOR [address] [place] [address] RE: Question Social History Tobacco Use Types [...] Sex Assigned at Female 05/02/2024 10:36 AM APPLICATIONS MANAGER Legal Sex Female 7:53 PM CDT Gender Identity Not on file Sexual Orientation Not on file COVID-19 Exposure Response Date Recorded In the last month, have you been in contact with someone who was confirmed or suspected to have Coronavirus / COVID-19? No / Unsure 07/10/2020 10:07 AM CDT documented as of this encounter Plan of Treatment Upcoming Encounters Date Type Department Care Team (Late st Contact Info) Description 07/10/2024 11:20 AM CDT Office Visit [facility] [address] [place] [address] Rene Sage DO [address] [place] [address] 08/01/2024 12:30 PM CDT Appointment [facility] [address] [place] [address] Chay Marshall MD [address] [facility] [address] [place], [place] [address] 08/01/2024 1:30 PM CDT Appointment [facility] [address] [place] [address] Chay Marshall MD [address] [facility] [address] [place], [place] [address] 09/26/2024 1:00 PM CDT Office Visit [facility] [address] [place], [place] [address] Thien Cooper MD [address] [place], [place] [address] documented as of this encounter Visit Diagnoses Not on filedocumented in this encounter Additional Health Concerns Infection Onset Date Last Indicated Resolved Time COVID-19 Rule Out 01/26/2022 01/26/202201/26/2022 3:05 PM CDT COVID-19 Rule Out 01/26/2022 01/26/2022 01/27/2022 6:32 PM CDT COVID-19 Rule Out 08/25/2022 08/25/2022 08/26/2022 3:43 PM CDT COVID-19 Confirmed 08/25/2022 09/01/2022 12:32 AM CDT Assessment Noted Time PHQ-9 Depression Total Score: 9 12/12/19 20 4:38 PM CDT documented as of this encounter Care Teams Energy Scheduler Relationship Specialty Start Date End Date Carly Villagomez NP [address] [place] [address] PCP - General Nurse Practitioner Family 11/02/16 documented as of this encounter
--- OUTSIDE RECORDS SUMMARY | 2024-05-12 12:52 | XMS_ITS | Encounter Summary ---
Author Organization [facility] Address [address] [place] [address] Care Team Providers Care Machine Bander And Cellophaner Helper Name Role Phone Carly Villagomez LIBRARIAN HELPER Primary Care Provider [phone] Encounter Details Date Type Department Care Team (Late st Contact Info) Description 04/11/2024 MyChart Message Enc [facility] Family and Sports Medicine - [place] [address] [place] [address] Carly Villagomez, LIBRARIAN HELPER [address] [place] [address] Blood test results Social History Tobacco Use Types Packs/Day Years Used Date Smoking Tobacco: Never Passive Smoke Exposure: Never Smokeless Tobacco: Never Alcohol Use Standard Drinks/Week Comments Not Currently 0 (1 standard drink = 0.6 oz pure alcohol) twice a year, 2 glasses of wine [facility] Utilities Answer Date Recorded In the past 12 months has [facility] [employer], gas, oil, or water [employer] threatened to shut off services in your [...] place to sleep or slept in a snf (including now)? No 02/21/2023 Comments No Sex and Gender Information Value Date Recorded Sex Assigned at Female 05/02/2024 10:36 AM CONTRACT IMPLEMENTATION ANALYST Legal Sex Female 7:53 PM CDT Gender [...] Progress Notes * Carly Villagomez NP - 04/11/2024 8:38 AM CST What result and who told her to stop those meds RACT IMPLEMENTATION ANALYST documented in this encounter Plan of Treatment Upcoming Encounters Date Type Department Care Team (Late st Contact Info) Description 07/10/2024 11:20 AM CDT Office Visit [facility] [address] [place] [address] Rene Sage DO [address] [facility] [address] [place] [address] 08/01/2024 12:30 PM CDT Appointment [facility] [address] [facility] [place] [address] Chay Marshall MD [address] [address] 08/01/2024 1:30 PM CDT Appointment [facility] [address] [facility] [place] [address] Chay Marshall MD [address] [phone] 09/26/2024 1:00 PM CDT Office Visit [facility] THREE [facility], [facility] [address] [place], [place] [address] Thien Cooper MD Three [facility] [address] [place], [place] [address] documented as of this encounter Goals Goal Patient Goal Type Associated Problems Recent Progress Patient-Stated? Author Patient will return to prior living situation and remain independent in ADLs upon discharge from hospital Lifestyle No Andreea Thomas, COOKEE documented as of this encounter Visit Diagnoses Not on filedocumented in this encounter Additional Health Concerns Assessment Noted Time PHQ-9 Depression Total Score: 18 024 10:47 AM CONTRACT IMPLEMENTATION ANALYST documented as of this encounter Care Teams Machine Bander And Cellophaner Helper Relationship Specialty Start Date End Date Carly Villagomez, LIBRARIAN HELPER [address] [place] [address] PCP - General Nurse Practitioner Family 11/02/16 documented as of this encounter
--- OUTSIDE RECORDS SUMMARY | 2024-05-12 12:52 | XMS_ITS | Encounter Summary ---
Author Organization [facility] Address [address] [place] [address] Care Team Providers Care Virtual Customer Assistant Name Role Phone VillagomezCarly TRACY Primary Care Provider [phone] Encounter Details Date Type Department Care Team (Late st Contact Info) Description 02/05/[address] Outpatient Therapy [address] [place], [place] [phone] Kelly Quinn, PT [address] [place], [place] [phone] Social History Tobacco Use Types Packs/Day Years [...] Sex Assigned at Female 05/02/2024 10:36 AM ARCHITECTURAL ADMINISTRATIVE ASSISTANT Legal Sex Female 7:53 PM CDT Gender Identity Not on file Sexual Orientation Not on file COVID-19 Exposure Response Date Recorded In the last month, have you been in contact with someone who was confirmed or suspected to have Coronavirus / COVID-19? No / Unsure 01/24/2020 10:08 AM CDT documented as of this encounter Plan of Treatment Upcoming Encounters Date Type Department Care Team (Late st Contact Info) Description 07/10/2024 11:20 AM CDT Office Visit [facility] [address] [place] [address] Rene Sage DO [address] [place] [address] 08/01/2024 12:[address] [facility] [place] [address] [facility] [place] [address] Chay Marshall MD [facility] [address] 08/01/2024 1:[address] [facility] [place] [address] [facility] [place] [address] Chay Marshall MD [facility] [address] [address] 09/26/2024 1:00 PM CDT Office Visit [facility] [address] [facility] [address] [place], [place] [address] Thien Cooper MD Three [address] [facility] [address] [place], [place] [address] documented as of this encounter Visit Diagnoses Not on filedocumented in this encounter Additional Health Concerns Infection Onset Date Last Indicated Resolved Time COVID-19 Rule Out 01/26/2022 01/26/202201/2601/26/2022 3:05 PM CDT COVID-19 Rule Out 01/26/2022 01/26/2022 01/27/2022 6:32 PM CDT COVID-19 Rule Out 08/25/2022 08/25/2022 08/26/2022 3:43 PM CDT COVID-19 Confirmed 08/25/2022 09/01/2022 12:32 AM CDT Assessment Noted Time PHQ-9 Depression Total Score: 9 12/12/19 20 4:38 PM CDT documented as of this encounter Care Teams Virtual Customer Assistant Relationship Specialty Start Date End Date Carly Villagomez NP [address] [place] [address] PCP - General Nurse Practitioner Family 11/02/16 documented as of this encounter
--- OUTSIDE RECORDS SUMMARY | 2024-05-12 12:52 | XMS_ITS | Encounter Summary ---
Author Organization [facility] Address [address] [place] [address] Care Team Providers Care Senior Sql Server Dba Name Role Phone Carly Villagomez HULLER OPERATOR Primary Care Provider [phone] Reason for Visit * Reason Onset Date Comments Refill Request 05/12/2024 Encounter Details Date Type Department Care Team (Late st Contact Info) Description 05/12/2024 Telephone [facility] Medical [facility] Family and Sports Medicine - [place] [address] [place] [address] Carly Villagomez, HULLER OPERATOR [address] [place] [address] Refill Request Social History Tobacco Use Types Packs/Day Years Used Date Smoking Tobacco: Never Passive Smoke Exposure: Never Smokeless Tobacco: Never Alcohol Use Standard Drinks/Week Comments Not Currently 0 (1 standard drink = 0.6 oz pure alcohol) twice a year, 2 glasses of wine [facility] Utilities Answer Date Recorded In the past 12 months has [facility] [employer], gas, oil, or water [place] [employer]) threatened to shut off services in your [...] place to sleep or slept in a jail (including now)? No 02/21/2023 Comments No Sex and Gender Information Value Date Recorded Sex Assigned at Female 05/02/2024 10:36 AM YARN MERCERIZER OPERATOR HELPER Legal Sex Female 7:53 PM CDT Gender [...] documented in this encounter Progress Notes * Nataliya Gómez CMA - 05/12/2024 9:04 AM CST Lab orders have been faxed. MERCERIZER OPERATOR HELPER * America Dowd - 05/12/2024 8:49 AM CST Pt is asking for her labs to be sent to [facility]. [address] [place] [address] 2, [facility] [address] Ph. [phone] MERCERIZER OPERATOR HELPER documented in this encounter Plan of Treatment Upcoming Encounters Date Type Department Care Team (Late st Contact Info) Description 07/10/2024 11:20 AM CDT Office Visit [facility] [address] [place] [address] Rene Sage DO [address] [place] [address] 08/01/2024 12:30 PM CDT Appointment [facility] [address] [facility] [place] [address] Chay Marshall MD [facility] [address] [place], [place] [phone] 08/01/2024 1:30 PM CDT Appointment [facility] [address] [facility] [place], [place] [address] Chay Marshall MD [facility] [address] 09/26/2024 1:00 PM CDT Office Visit [facility] [address] [facility] [address] [place], [place] [address] Thien Cooper MD [address] [facility] [address] [place], [place] [address] documented as of this encounter Goals Goal Patient Goal Type Associated Problems Recent Progress Patient-Stated? Author Patient will return to prior living situation and remain independent in ADLs upon discharge from hospital Lifestyle No Andreea Thomas POND SUPERVISOR documented as of this encounter Visit Diagnoses Not on filedocumented in this encounter Additional Health Concerns Assessment Noted Time PHQ-9 Depression Total Score: 18 02/07/ 024 10:47 AM YARN MERCERIZER OPERATOR HELPER documented as of this encounter Care Teams Senior Sql Server Dba Relationship Specialty Start Date End Date Carly Villagomez, HULLER OPERATOR [address] [place] [address] PCP - General Nurse Practitioner Family 11/02/16 documented as of this encounter
--- OUTSIDE RECORDS SUMMARY | 2024-05-12 12:52 | XMS_ITS | Encounter Summary ---
Author Organization [facility] Address [address] [facility] [place] [address] Care Team Providers Care Bottoming Room Supervisor Name Role Phone Unknown, Provider Primary Care Provider Unavaila ble Encounter Details Date Type Department Care Team (Late Contact Info) Description 03/31/2024 Telephone [facility] - RESEARCH DEVELOPMENT MANAGER [address] [facility] [address] [place] [address] Kenny Schrader MD [address] [facility] [address] [place] [address] Social History Tobacco Use Types Packs/Day Years [...] on file documented as of this encounter Miscellaneous Notes * Telephone Encounter - Vincent Almonte - 03/31/2024 9:32 AM CST Pt calling to reschedule appt to a later date in May TION SAFETY OFFICER documented in this encounter Plan of Treatment Upcoming Encounters Date Type Department Care Team (Late Contact Info) Description 05/19/2024 10:00 AM AVIATION SAFETY OFFICER Office Visit [facility] - Surg Oncology [address] [place] [address] Kenny Schrader MD [address] [phone] documented as of this encounter Visit Diagnoses Not on filedocumented in this encounter Care Teams Bottoming Room Supervisor Relationship Specialty Start Date End Date Unknown, Provider PCP - General 02/01/23 documented as of this encounter
--- OUTSIDE RECORDS SUMMARY | 2024-05-12 12:52 | XMS_ITS | Encounter Summary ---
Author Organization [facility] Address [address] [place] [address] Care Team Providers Care Coffee Maker Servicer Name Role Phone Carly Villagomez PROCESS DEVELOPMENT CHEMIST Primary Care Provider [phone] Encounter Details Date Type Department Care Team (Late st Contact Info) Description 08/20/2020 MyCVitronet Groupt Message Enc [facility] Medical Group Family and Sports Medicine - [place] [address] [place] [address] Carly Villagomez, PROCESS DEVELOPMENT CHEMIST [address] [place] [address] RE: Follow Up/Update Social History Tobacco Use [...] Sex Assigned at Female 05/02/2024 10:36 AM WARD MAID Legal Sex Female 7:53 PM CDT Gender Identity Not on file Sexual Orientation Not on file COVID-19 Exposure Response Date Recorded In the last month, have you been in contact with someone who was confirmed or suspected to have Coronavirus / COVID-19? No / Unsure 08/12/2020 10:56 AM CDT documented as of this encounter Progress Notes * Carly Villagomez NP - 08/20/2020 2:29 PM CDT Send to ENT * Dory Guillaume MA - 08/20/2020 2:29 PM CDT Please advise documented in this encounter Plan of Treatment Upcoming Encounters Date Type Department Care Team (Late st Contact Info) Description 07/10/2024 11:20 AM CDT Office Visit [facility] Mult[facility]pecialty Care - [facility] [address] [facility] [address] [place] [address] Rene Sage DO [address] [facility] [address] [place] [address] 08/01/2024 12:30 PM CDT Appointment [facility] [address] [facility] [place] [address] Chay Marshall MD [facility] [address] 08/01/2024 1:30 PM CDT Appointment [facility] [address] [facility] [place] [address] Chay Marshall MD [facility] [address] 09/26/2024 1:00 PM CDT Office Visit [facility] [address] [facility], [address] [address] Thien Cooper MD Three [facility]. [facility] [address] [place] [address] documented as of this encounter Visit Diagnoses [...] documented as of this encounter Care Teams Coffee Maker Servicer Relationship Specialty Start Date End Date Carly Villagomez NP [address] [place] [address] PCP - General Nurse Practitioner Family 11/02/16 documented as of this encounter
--- OUTSIDE RECORDS SUMMARY | 2024-05-12 12:52 | XMS_ITS | Encounter Summary ---
Author Organization [facility] Address [address] [place] [address] Care Team Providers Care Foundry Worker Apprentice Name Role Phone Carly Villagomez NP Primary Care Provider + Encounter Details Date Type Department Care Team (Late st Contact Info) Description 02/02/2024 [email or web address] Message Enc [facility] Medical Group Family and Sports Medicine - [place] [address] [place] [address] Nancy Stahl APNP [address] [place] [address] Toradol Shot Social History Tobacco Use Types Packs/Day Years Used Date Smoking Tobacco: Never Smokeless Tobacco: Never Alcohol Use Standard Drinks/Week Comments Not Currently 0 (1 standard drink = 0.6 oz pure alcohol) twice a year, 2 glasses of wine [facility] Utilities Answer Date Recorded In the past 12 months has [facility] [employer], gas, oil, or water [employer] threatened to shut off services in your [...] place to sleep or slept in a assisted (including now)? No 02/21/2023 Comments No Sex and Gender Information Value Date Recorded Sex Assigned at Female 05/02/2024 10:36 AM C ARCHITECT Legal Sex Female 7:53 PM CDT Gender [...] documented in this encounter Progress Notes * ADRY Carrillo - 02/04/2024 11:24 AM CDT Carly ALVARADO documented in this encounter Plan of Treatment Upcoming Encounters Date Type Department Care Team (Late st Contact Info) Description 07/10/2024 11:20 AM CDT Office Visit [facility] Medical Group Multispecialty Care - [facility] [address] [place] [address] Rene Sage DO [address] [place] [address] 08/01/2024 12:30 PM CDT Appointment [facility] [place] [address] Chay Marshall MD [address] [id number] 08/01/2024 1:30 PM CDT Appointment [facility] [address] [facility] [place], [place] [address] Chay Marshall MD [address] [id number] 09/26/2024 1:00 PM CDT Office Visit [facility] [address] [facility] [address] [place], [place] [phone] Thien Cooper MD Three [facility]. [address] [address] documented as of this encounter Goals Goal Patient Goal Type Associated Problems Recent Progress Patient-Stated? Author Patient will return to prior living situation and remain independent in ADLs upon discharge from hospital Lifestyle No Andreea Thomas, MASSEUR/MASSEUSE documented as of this encounter Visit Diagnoses Not on filedocumented in this encounter Additional Health Concerns Assessment Noted Time PHQ-9 Depression Total Score: 11 023 4:03 PM CDT documented as of this encounter Care Teams Foundry Worker Apprentice Relationship Specialty Start Date End Date Carly Villagomez NP [address] [place] [address] PCP - General Nurse Practitioner Family 11/02/16 documented as of this encounter
--- OUTSIDE RECORDS SUMMARY | 2024-05-12 12:53 | XMS_ITS | Encounter Summary ---
Author Organization [facility] Address [address] [place] [address] Care Team Providers Care Wireless Sales Expert Name Role Phone Carly Villagomez CAPTAIN/CHECK AIRMAN Primary Care Provider +5 Encounter Details Date Type Department Care Team (Late st Contact Info) Description 06/12/2019 [email or web address] Message Enc [facility] Medical Group Family and Sports Medicine - [place] [address] [place] [address] Carly Villagomez, CAPTAIN/CHECK AIRMAN [address] [place] [address] RE: Follow Up/Update Social History Tobacco Use Types Packs/Day Years Used Date Smoking Tobacco: Never Smokeless Tobacco: Never Alcohol Use Standard Drinks/Week Comments No 0 (1 standard drink = 0.6 oz pur e alcohol) AUDIT-C Answer Date Recorded Frequency of Alcohol Consumption Never 06/27/2018 Average Number of Drinks Not on file 019 Frequency of Binge Drinking Not on file 06/04 Comments No Sex and Gender Information Value Date Recorded Sex Assigned at Female 05/02/2024 10:36 AM ARCGIS DEVELOPER Legal Sex Female 7:53 PM CDT Gender Identity Not on file Sexual Orientation Not on file documented as of this encounter Progress Notes * Dory Guillaume MA - 06/13/2019 5:04 PM CDT FYI * Dory Guillaume MA - 06/13/2019 9:12 AM CDT FYI documented in this encounter Plan of Treatment Upcoming Encounters Date Type Department Care Team (Late st Contact Info) Description 07/10/2024 11:20 AM CDT Office Visit [facility] Medical Group Multispecialty Care - [facility] [address] [place] [address] Rene Sage DO [address] [place] [address] 08/01/2024 12:30 PM CDT Appointment [facility] [address] [place] [address] Chay Marshall MD [facility] [address] 08/01/2024 1:30 PM CDT Appointment [facility] [address] [place] [address] Chay Marshall MD [facility] [address] [id number] 09/26/2024 1:00 PM CDT Office Visit [facility] [address] [place] [address] Thien Cooper MD [address] [place], [place] [phone] documented as of this encounter Visit Diagnoses [...] documented as of this encounter Care Teams Wireless Sales Expert Relationship Specialty Start Date End Date Carly Villagomez NP [address] [place] [address] PCP - General Nurse Practitioner Family 11/02/16 documented as of this encounter
--- OUTSIDE RECORDS SUMMARY | 2024-05-12 12:53 | XMS_ITS | Clinical Summary ---
Author Organization [facility] Address [facility] [place] [address] Care Team Providers Care Tugboat Pilot Name Role Phone HernandoCarly TRACY Primary Care Provider Allergies Active Allergy Reactions Criticality Noted Date Comments Amitriptyline GI Upset Medium 08/25/2012 Carbamazepine Vomiting Low 08/25/2012 Nitrofurantoin Rash Low 06/19/2021 Milk (Cow) Unknown 08/25/2012 Pravastatin Chest pressure High 08/25/2012 [place] like having heart attack, pt states went to ER Sulfa Antibiotics Other (see comment) 3 Yeast infection Tramadol Unknown 03/06/2022 Trazodone Nausea and Vomiting,Headache 08/25/2012 confusion Venlafaxine Nausea and Vomiting Medium 08/25/2012 Medications Glucosamine-Chondroit- Vit C-Mn (GLUCOSAMINE CHONDROITIN COMPLX) Cap Take 1 capsule by mouth daily. Active latanoprost 0.005 % ophthalmic solution Place 1 drop into both eyes nightly at bedtime. 3 2018 Active nitroglycerin 0.4 MG SL tabletIndications:Prec ordial pain Place 1 tablet (0.4 mg total) under the tongue every 5 (five) minutes as needed for Chest Pain (If taking 3rd dose, contact 911.). 25 tablet 1 2021 Active DULoxetine (CYMBALTA) 30 MG capsule Take 1 capsule (30 mg total) by mouth 2 (two) times daily. 2021 Active kgzpolb-rrsgbziol-swol 333-133-5 MG Tab Take 1 tablet by mouth nightly. Active [place] [employer]-3 Fatty Acids (KP FISH OIL) 1200 MG Cap Take 1 capsule by mouth 2 (two) times a day. Active Multiple Vitamins-Minerals (PRESERVISION AREDS OR) Take 1 capsule by mouth 2 (two) times a day. Active rimegepant (NURTEC) 75 MG disintegrating tabletIndications:Intr actable migraine with aura with status migrainosus Take 1 tablet (75 mg total) by mouth daily as needed for Migraine. Max of 1 tablet (75 mg) in 24 hours. 14 tablet 1 2023 Active potassium chloride CR (KLOR-CON M) 10 MEQ tablet TAKE 1 TABLET(10 MEQ) BY MOUTH EVERY MORNING 90 tablet 1 2023 Active rosuvastatin (CRESTOR) 40 MG tabletIndications:Pure hypercholesterolemia TAKE 1 TABLET(40 MG) BY MOUTH EVERY NIGHT AT BEDTIME 90 tablet 1 2023 Active dilTIAZem CD (CARDIZEM CD) 120 MG 24 hr capsule TAKE 1 CAPSULE(120 MG) BY MOUTH DAILY 90 capsule 1 2023 Active ezetimibe (ZETIA) 10 MG tabletIndications:Pure hypercholesterolemia TAKE 1 TABLET(10 MG) BY MOUTH DAILY 90 tablet 1 2023 Active furosemide (LASIX) 20 MG tablet TAKE 1 TABLET(20 MG) BY MOUTH DAILY 90 tablet 1 2023 Active XIIDRA 5 % ophthalmic solution Place 1 drop into both eyes 2 (two) times daily. 2023 Active apixaban (ELIQUIS) 5 MG tablet TAKE 1 TABLET(5 MG) BY MOUTH TWICE DAILY FOR ATRIAL FIBRILLATION 180 tablet 2023 Active atogepant (QULIPTA) tabletIndications:Hx of migraines Take 1 tablet (30 mg total) by mouth daily. 30 tablet 1 2023 Active gabapentin (NEURONTIN) 300 MG capsule One tablet po qhs x 3 days then increase to bid for 3 days then increase to tid 90 capsule 2023 Active levothyroxine (SYNTHROID) 88 MCG tabletIndications:Drug -induced hypothyroidism TAKE 1 TABLET(88 MCG) BY MOUTH DAILY 90 tablet 1 2023 Active Zavegepant HCl (ZAVZPRET) 10 MG/ACT SolutionIndications:In tractable chronic migraine with aura with status migrainosus 10 mg by Nasal route as needed. Smock 1 spray (10mg) in nostril daily PRN- do not exceed 10mg per 24 hours 8 each 1 2023 Active lurasidone (LATUDA) 20 MG tablet daily. 2023 Active brimonidine (ALPHAGAN) 0.2 % ophthalmic solution Place 1 drop into both eyes 2 (two) times daily. 2023 Active HYDROcodone-acetaminop hen (NORCO) 5-325 MG tabletIndications:Executive Pilot bridget Pain Take 1 tablet by mouth every 6 (six) hours as needed for Pain. Indications: Chronic Pain 60 tablet 2023 Active cyclobenzaprine (FLEXERIL) 5 MG tabletIndications:Executive Pilot bridget bilateral thoracic back pain TAKE 1 TABLET(5 MG) BY MOUTH THREE TIMES DAILY NEEDED FOR MUSCLE SPASMS 30 tablet 2023 Active HYDROcodone-acetaminop hen (NORCO) 5-325 MG tabletIndications:Acut e Pain < 7 Day Supply Take 1 tablet by mouth every 6 (six) hours as needed. Indications: Acute Pain < 7 Day Supply 20 tablet 2024 Active cephALEXin (KEFLEX) 500 MG capsule Take 1 capsule (500 mg total) by mouth 3 (three) times daily for 10 days. 30 capsule 05/12 Active diazePAM (VALIUM) 2 MG tablet every 12 (twelve) hours. 05/02 Discontinued Active Problems Patient Care Coordination No te Formatting of this note migh t be different from the original. PT precautions: Female Cancer, sp complete hysterectomy and radiation Problem Noted Date Diagnosed Date HTN (hypertension) 02/01/2024 Atrial fibrillation with RVR (CMS/HCC HHS/HCC) 1 04/23/2022 Foraminal stenosis of thoracic region 02/08/2023 Thoracic spinal stenosis 11/27/2022 Thoracic radiculopathy 11/27/2022 Sacroiliitis 11/27/2022 Trochanteric bursitis of both hips 11/27/2022 Precordial pain 12/03/2020 Bulging of thoracic intervertebral disc without myelopathy 07/20/2019 Endometrial cancer ([facility]) 09/09/2017 Overview (08/12/2020): Added automatically from request for surgery [id number] Arteriosclerosis of carotid artery, bilateral [place] on CPAP 06/26/2016 Morbid obesity ([facility]) 01/21/2016 Edema 09/04/2013 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 Don psychiatry - on cymotel. 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 Overview (05/30/2018): Description: FACIAL NERVE CHRONIC PAIN SYNDROME (NOT SPECIFICALLY FROM INJURY) - SEES PAIN MANAGEMENT [facility] Hyperlipidemia 08/25/2012 Prolapsing mitral leaflet syndrome 08/25/2012 Reactive airway disease ([facility]) 08/25/2012 Resolved Problems Problem Noted Date Diagnosed Date Resolved Date Leg edema 12/03/2020 02/02/2024 Dysfunction of both eustachian tubes 09/07/2020 07/15/2022 Left ear pain 09/07/2020 07/15/2022 History of uterine cancer 06/27/2018 Cellulitis 12/20/2017 04/13/2019 Wasp sting 12/20/2017 04/13/2019 Cerumen impaction 11/07/2017 04/13/2019 UTI symptoms 05/31/2017 04/13/2019 Breast lump in female 05/28/20172019 Well female exam with routin e gynecological exam 05/28/2017 04/13/2019 Post-menopausal bleeding 05/28/201712/2019 Allergic rhinitis 04/01/2017 12/02/2020 HSV infection 03/31/2017 04/13/2019 Leg pain 11/02/2016 04/13/2019 Low thyroid stimulating hormone (TSH) level 11/02/2016 04/13/2019 Sleep disturbance 01/21/2016 04/13/2019 Snoring 01/14/2016 04/13/2019 Contact dermatitis 11/04/2015 0 Rib pain on right side 05/22/201504/13 Hyperglycemia 01/04/2014 12/02/2020 Elevated blood pressure read ing without diagnosis of hypertension 01/03/2014 12/13/2019 Rectal polyp 08/28/2012 04/13/2019 Screening for osteoporosis 08/28/2012 0 04/13/2019 Overview (01/04/2019): Description: BONE DEXA - 2010 - NORMAL DENSITY Cataract of both eyes 08/25/20122019 Overview (05/30/2018): Description: 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 Gastroparesis 08/25/2012 08/12/2020 Encounter for preventive health examination 08/24/2012 04/13/2019 Murmur 02/02/2024 Encounters Date Type Department Care Team Description 05/12/2024 Telephone [facility] [address] [place] [address] Carly Villagomez, DIETETIC TECHNICIAN Refill Request 05/12/2024 Telephone [facility] [place] [address] [phone] Cheryl Richard RN Follow Up 05/10/2024 MyChart Message Enc [facility] [address] [place] [address] Carly Villagomez NP Blood test 05/09/2024 10:58 AM PRODUCTION TOOL ENGINEER - 05/09/2024 11:59 PM PRODUCTION TOOL ENGINEER Hospital Encounter [facility] [place] [address] [id number] Keysha Zuniga MD Smith, Macee N, JUAN Arrived Discharge Disposition: Home or Self Care (Routine Discharge) 05/09/2024 Telephone [facility] [place] [place] [address] [phone] Gerda Lowery, MAXINE Follow Up Call 05/09/2024 Telephone [facility] [address] [place] [phone] Carly Villagomez, TRACY Callback 05/09/2024 Travel 05/03/2024 Telephone [facility] [place] [address] [phone] Gerda Lowery, MAXINE Follow Up Call 05/02/2024 12:00 PM PRODUCTION TOOL ENGINEER - 05/02/2024 1:00 PM [facility] Surgery [facility] [place] [address] [id number] Keysha Zuniga MD IMPLANT STIMULATOR SPINAL CORD TRIAL 05/02/2024 10:39 AM PRODUCTION TOOL ENGINEER - 05/02/2024 1:45 PM [facility] Hospital Encounter [facility] [place] [address] [phone] Keysha Zuniga MD Discharge Disposition: Home or Self Care (Routine Discharge) 05/02/2024 Travel 04/29/2024 Scan [employer] SRVCS Scanned, [facility] 04/27/2024 MyChart Message Enc [facility] [address] [place] [phone] Carly Villagomez, TRACY Medication Interactions 04/19/2024 Telephone [facility] [place] [address] [phone] Cheryl Richard RN Follow Up (/) 04/19/2024 Telephone [facility] [place] [address] [phone] Cheryl Richard, RN Follow Up 04/11/2024 MyChart Message Enc [facility] [address] [place] [address] Carly Villagomez, DIETETIC TECHNICIAN Blood test results 04/03/2024 9:50 AM PRODUCTION TOOL ENGINEER Laboratory Only [facility] [address] [place] [address] Carly Villagomez, DIETETIC TECHNICIAN 04/03/2024 9:00 AM PRODUCTION TOOL ENGINEER Office Visit [facility] [address] [place] [address] Carly Villagomez, TRACY Follow Up (F/U RT. shoulder pain. Was seen at Urgent Care- was in A-Fib. Was sent to [facility] ER for this, while she was there they did blood test and her liver enzymes were elevated. Has not taken her medication this morning.) 04/03/2024 Scan [employer] INFO SRVCS Scanned, [facility] Lab (SCAN) 04/03/2024 Travel 03/31/2024 Telephone [facility] [place] [address] [phone] Radha Barajas, RN Appointment Request 03/28/[address] [facility] [address] [address] Thien Cooper MD Medication Information 03/28/2024 Telephone [facility] [place] [address] [id number] Basia Doyle, RN Fax 03/24/2024 10:31 AM PRODUCTION TOOL ENGINEER - 03/24/2024 1:52 PM PRODUCTION TOOL ENGINEER Emergency [facility] Emergency Room [place], [place] [phone] Joan Schwartz PA Shoulder Injury Discharge Disposition: Home or Self Care (Routine Discharge) 03/24/2024 9:17 AM PRODUCTION TOOL ENGINEER - 03/24/2024 10:10 AM PRODUCTION TOOL ENGINEER Hospital Encounter [facility] [address] [place] [address] Ciarra Caldera DO Shoulder Pain Discharge Disposition: Transfer to Acute Care Hospital 03/24/2024 MyChart Message Enc [facility] [address] [place] [address] Thien Cooper MD Searching for pain relief for back/shoulder 03/24/2024 Travel 03/21/2024 1:00 PM PRODUCTION TOOL ENGINEER Office Visit [facility] [address] [place] [address] Ivonne Andrea, APPEALS MANAGER Atrial Fibrillation; Hypertension 03/21/2024 MyChart Message Enc [facility] - [address] [address] Craly Villagomez, DIETETIC TECHNICIAN Update 03/21/2024 Travel 03/20/2024 Prep for Procedure [facility] [place] [address] [id number] Edy Ramirez, MULTIFOCAL BUTTON GENERATOR 03/20/2024 Telephone [facility] [place] [address] [phone] Cheryl Richard RN Follow Up Call 03/20/2024 MyChart Message Enc [facility] Multispecialty Care - [facility] [address] [facility], [address] [place] [address] Bárbara Hart APRN Letter in my records 03/16/2024 Telephone [facility] [place] [address] [phone] Cheryl Richard, RN Follow Up Call 03/16/2024 Telephone [facility] [place] [address] [phone] Cheryl Richard, RN Follow Up 03/14/2024 9:20 AM PRODUCTION TOOL ENGINEER Office Visit [facility] [address] [place] [phone] Carly Villagomez NP Shoulder Pain (RT. Shoulder x 5-6 months. Noticed it right after they moved in to a new home. ); Medication (Discuss Flexeril and Baclofen-when to take each ) 03/14/2024 Travel 03/13/2024 Telephone [facility] [place] [address] [phone] Cheryl Richard, MAXINE Follow Up (//) 03/06/2024 Orders Only [facility] [address] [place] [phone] [phone] Rosenda Tejada MA 02/28/2024 Scan HEALTH INFO SRVCS Scanned, [facility] 02/25/2024 Telephone [facility] [place] [address] [phone] Gerda Lowery, MAXINE Follow Up Call 02/24/2024 Orders Only [facility] [address] [place] [address] [phone] Rosenda Tejada MA 02/24/2024 MyChart Message Enc [facility] [address] [address] Thien Cooper MD Letter 02/21/2024 11:32 AM PRODUCTION TOOL ENGINEER - 02/21/2024 11:59 PM PRODUCTION TOOL ENGINEER Hospital Encounter [facility] [place] [address] [phone] Edy Ramirez, MULTIFOCAL BUTTON GENERATOR Discharge Disposition: Home or Self Care (Routine Discharge) 02/21/2024 Telephone [facility] [place] [address] [phone] Gerda Lowery, RN Follow Up Call 02/21/2024 Travel 02/21/2024 Telephone [facility] [place] [address] Thien Cooper MD Medication Information 02/17/2024 Bettymovilhart Message Enc [facility] [address] [place] [phone] Carly Villagomez, DIETETIC TECHNICIAN Uro-twisting machine operator 02/15/[address] [phone] Carly Villagomez, DIETETIC TECHNICIAN Record Request 02/10/2024 Scan [facility] INFO SRVCS Scanned, [facility] from Last 3 Months Immunizations Name Administration Dates Next Due FLUCELVAX (ccIIV3, TRIVALENT, 0.5mL) 12/15/2023 Flucelvax 6 Months+ (Prefilled Syringe) 02/10/20 19 Fluzone 6 Months+ Quad (0.5 mL Prefilled Syringe) 12/12/2019 Influenza Adult (Generic) 01/20/2023,05/20/2021, 01/04/2018 MODERNA COVID-19 (BATH STEWARD/STEWARDESS NILESH GIBRAN), MRNA, LNP-S, PF, 50 MCG/ 0.25 ML DOSE 05/20/2021 PFIZER COVID-19 (ORIGINAL FO RMULATION, PURPLE CAP) mRNA, LNP-S, PF, 30 MCG/0.3 ML DOSE 07/18/2020,06/25/2020 Pneumococcal (Prevnar 20) 07/13/2022 Shingrix 10/31/2020,02/27/2020 Tdap (Historical Only-select from magnify glass) 12/12/2019 Family History Medical History Relation Comments Arthritis Brother 2 diagnosed simult aneously with Diabetes I Cancer Brother 2 01/23/2021 Diabetes Brother 2 diagnosed simult aneously with Multiple Sclerosis Hyperlipidemia Brother 2 Hyperlipidemia Brother 3 Miscarriages / Stillbirths Daughter CABG Father Cancer Father melanomas remove d, colon cancer Depression Father never diagnosed Hyperlipidemia Father No Known Problems Maternal Grandfather No Known Problems Maternal Grandmother Miscarriages / Stillbirths Mother Relation Status Comments Brother 1 Alive Brother 2 (Age 62) Brother 3 Alive Daughter Father Alive Maternal Grandfather Maternal Grandmother Mother Alive Paternal Grandfather (Age 75) Paternal Grandmother (Age 74) Sister Alive Social History Tobacco Use Types Packs/Day Years Used Date Smoking Tobacco: Never Passive Smoke Exposure: Never Smokeless Tobacco: Never Tobacco Cessation:Counseling Given: No Alcohol Use Standard Drinks/Week Comments Not Currently 0 (1 standard drink = 0.6 oz pure alcohol) twice a year, 2 glasses of wine [employer] Answer Date Recorded In the past 12 months has e [employer], gas, oil, or water [employer] threatened to shut off services in your [...] place to sleep or slept in a [place] care facility (including now)? No 02/21/2023 Comments No Sex and Gender Information Value Date Recorded Sex Assigned at Female 05/02/2024 10:36 AM PRODUCTION TOOL ENGINEER Legal Sex Female 7:53 PM CDT Gender Identity Not on file Sexual Orientation Not on file Occupation Industry Job Start Date Job End Date former professional volunteer with [employer] Not on blayne e Not on file Not on file Last Filed Vital Signs Vital Sign Reading Time Taken Comments Blood Pressure 152/96 05/02/2024 1:21 PM PRODUCTION TOOL ENGINEER Pulse 86 05/09/2024 11:06 AM PRODUCTION TOOL ENGINEER Temperature 36 C (96.8 F) 05/09/2024 11:06 AM PRODUCTION TOOL ENGINEER Respiratory Rate 18 05/09/2024 11:06 AM PRODUCTION TOOL ENGINEER Oxygen Saturation 95% 05/09/2024 11:06 AM PRODUCTION TOOL ENGINEER Inhaled Oxygen Concentration - - Weight 113.9 kg (251 lb) 05/09/2024 11:06 AM PRODUCTION TOOL ENGINEER Height 160 cm (5' 3 ) 05/09/2024 11:06 AM PRODUCTION TOOL ENGINEER Body Mass Index 44.46 05/09/2024 11:06 AM PRODUCTION TOOL ENGINEER Plan of Treatment Upcoming Encounters Date Type Department Care Team (Late st Contact Info) Description 07/10/2024 11:20 AM CDT Office Visit [facility] Mult[facility] - [facility] [address] [place] [address] Rene Sage DO [address] [place] [address] 08/01/2024 12:30 PM CDT Appointment [facility] [address] [facility] [place] [address] Chay Marshall MD [facility] [phone] 08/01/2024 1:30 PM CDT Appointment [facility] [place] [address] Chay Marshall MD [facility] [address] [phone] 09/26/2024 1:00 PM CDT Office Visit [facility] [address] [facility] [address] [place], [place] [phone] Thien Cooper MD Three [facility]. [address] 734[address] Health Maintenance Due Date Last Done Comments RSV Immunization or 60+ Years (1 - Risk 60-74 years 1-dose series) 2019 Colorectal Cancer Screening Colonoscopy (10 Years) 01/04/2020 01/03/2010 PHQ-2 (Physician [place]) 04/05/2024 02/08/2024 Annual Physical 02/07/2025 02/08/2024, 07/04, 02/25/2021, Additional history exists Mammogram Screening 01/30/2026 01/31/2024, 07/30/2023, 10/07/2022, Additional history exists DTaP, Tdap and Td Vaccines (2 - Td or Tdap) 12/11/2029 12/12/2019 Hepatitis C Completed 04/13/2019 Zoster Vaccines Completed 10/31/2020, 02/27/2020 Pneumococcal Vaccine: Pediatrics (0 to 5 Years) and At-Risk Patients (6 to 64 Years) Completed 07/13/2022 COVID-19 Vaccine Completed 12/15/2023, , 05/20/2021, Additional history exists Influenza Adult Completed 12/15/2023, 01/03, 05/20/2021, Additional history exists Meningococcal B Vaccine Aged Out No l onger eligible based on patient's age to complete this topic Meningococcal Vaccine Aged Out No emily heaven eligible based on patient's age to complete this topic RSV Immunizations Under 20 Months Aged Out No longer eligible based on patient's age to complete this topic Goals Goal Patient Goal Type Associated Problems Recent Progress Patient-Stated? Author Patient will return to prior living situation and remain independent in ADLs upon discharge from hospital Lifestyle No Andreea Thomas, TEST FACILITY ENGINEER Medical Devices Implanted Type Area Pipe Fitter Soft Copper Device Identifier Shelf Expiration Date Model / Serial / Lot Lead Metronic Nervestimulator 5mm 1 X 8 - [id number] Implanted:Qty: 1 on 05/02/2024 by Keysha Zuniga MD at [facility] Lead Implant [employer] [id number] / / [id number] Lead Metronic Nervestimulator 5mm 1 X 8 - [id number] Implanted:Qty: 1 on 05/02/2024 by Keysha Zuniga MD at [facility] Lead Implant [employer] [id number] / / [id number] Procedures Procedure Name Priority Date/Time Associated Diagnosis Comments PERCUT IMPLNT NEUROELECT,EPIDURAL 05/02/2024 12:37 PM PRODUCTION TOOL ENGINEER Thoracic radiculopathy XR PAIN CLINIC C-ARM Today 05/02/2024 10:52 AM PRODUCTION TOOL ENGINEER COLLECTION VENOUS BLOOD VENIPUNCTURE Routine 04/03/2024 9:52 AM PRODUCTION TOOL ENGINEER Elevated liver enzymes OUTSIDE LAB (SCAN ORDER) Routine 04/03/2024 CTA CHEST PE PROTOCOL STAT 03/24/2024 1:09 PM PRODUCTION TOOL ENGINEER TROPONIN, QUANT STAT 03/24/2024 10:46 AM PRODUCTION TOOL ENGINEER COMPREHENSIVE METABOLIC PANEL STAT 03/24/2024 10:46 AM PRODUCTION TOOL ENGINEER CBC W/DIFF AUTOMATED STAT 03/24/2024 10:46 AM PRODUCTION TOOL ENGINEER ECG 12-LEAD Routine 03/24/2024 10:43 AM PRODUCTION TOOL ENGINEER ECG 12-LEAD STAT 03/24/2024 9:46 AM PRODUCTION TOOL ENGINEER MG DIAG W SYD RT DIGI Routine 01/31/2024 9:09 AM CDT Abnormal mammogram HEPATITIS C ANTIBODY Routine 04/13/2019 2:42 PM PRODUCTION TOOL ENGINEER Need for hepatitis C screening test COLONOSCOPY Routine 01/03/2010 12:00 AM CDT from Last 3 Months or Most Recently Relevant to Health Maintenance Results * XR PAIN CLINIC C-ARM (05/02/2024 10:52 AM PRODUCTION TOOL ENGINEER) Narrative Radiology, Technologist - 05/02/2024 10:52 AM PRODUCTION TOOL ENGINEER This report does not contain a radiologist's interpretation. Please review associated procedure and/or operative report. Keysha Zuniga MD GENERAL IMAGING Final Result * OUTSIDE LAB (04/03/2024) HGB A1C 5.6 % [facility] ONBASE 04/03/2024 us [facility] Scanned SCANNING Final Resu lt [facility] * CTA CHEST PE PROTOCOL (03/24/2024 1:09 PM PRODUCTION TOOL ENGINEER) Anatomical Region Laterality Modality Chest Computed Tomogra phy 03/24/2024 1:10 PM PRODUCTION TOOL ENGINEER Impressions 03/24/2024 1:13 PM PRODUCTION TOOL ENGINEER IMPRESSION: 1. No evidence of acute pulmonary embolism. 2. Masslike architectural distortion/fibrosis right upper lobe measures 1.7 x 7.5 cm. Although this may be all related to postradiation fibrosis, difficult to exclude recurrent neoplasm. Nonemergent PET/CT recommended. Referred By: Interpreted By: Vito Solis MD, 03/24/2024 1:10 PM Narrative 03/24/2024 1:13 PM PRODUCTION TOOL ENGINEER [facility] [address] [place], [place] [address] EXAMINATION: CT ANGIOGRAM CHEST WITH CONTRAST EXAM DATE: 03/24/2024 1:00 PM REASON FOR EXAM: pain right chest, worse with breathing Shortness of breath COMPARISON: 12/23/2021 TECHNIQUE: Axial images through the chest after injection of 80 mL Isovue-370. 3-D post processed images were reconstructed on an independent workstation with concurrent physician supervision. Dose lowering technique was used for this study which may include, but is not limited to, dose reduction techniques, automated exposure control, use of iterative reconstruction and ALARA (As low As Reasonably Achievable)/Image Gently techniques. FINDINGS: Adequate opacification of the pulmonary arteries. No evidence of acute pulmonary embolism. Masslike architectural distortion/fibrosis right upper lobe measures 1.7 x 7.5 cm axial image 41. This could all be related to postradiation fibrosis, difficult to fully exclude recurrent neoplasm. Nonemergent PET/CT recommended. No additional suspicious pulmonary lesion. No pneumothorax or pleural effusion. No axillary or supraclavicular lymphadenopathy. Heart size normal. No pericardial effusion. No mediastinal or hilar lymphadenopathy. Limited evaluation of the upper abdomen demonstrates no acute or suspicious findings. Bones: No suspicious skeletal lesion or evidence of fracture. Procedure Note Vito Solis MD - 03/24/[address] [id number] EXAMINATION: CT ANGIOGRAM CHEST WITH CONTRAST EXAM DATE: 03/24/2024 1:00 PM REASON FOR EXAM: pain right chest, worse with breathing Shortness of breath COMPARISON: 12/23/2021 TECHNIQUE: Axial images through the chest after injection of 80 mLIsovue-370. 3-D post processed images were reconstructed on an independent workstationwith concurrent physician supervision. Dose lowering technique was used for this study which may include, but isnot limited to, dose reduction techniques, automated exposure control, use of iterativereconstruction and ALARA (As low As Reasonably Achievable)/Image Gently techniques. FINDINGS: Adequate opacification of the pulmonary arteries. No evidence of acutepulmonary embolism. Masslike architectural distortion/fibrosis right upper lobe measures 1.7 x7.5 cm axial image 41. This could all be related to postradiationfibrosis, difficult to fully exclude recurrent neoplasm. NonemergentPET/CT recommended. No additional suspicious pulmonary lesion. No pneumothorax or pleuraleffusion. No axillary or supraclavicular lymphadenopathy. Heart size normal. No pericardial effusion. No mediastinal or hilar lymphadenopathy. Limited evaluation of the upper abdomen demonstrates no acute orsuspicious findings. Bones: No suspicious skeletal lesion or evidence of fracture. IMPRESSION: 1. No evidence of acute pulmonary embolism. 2. Masslike architectural distortion/fibrosis right upper lobe measures1.7 x 7.5 cm. Although this may be all related to postradiation fibrosis,difficult to exclude recurrent neoplasm. Nonemergent PET/CT recommended. Referred By: Interpreted By: Vito Solis MD, 03/24/2024 1:10 PM Tamiko Whitehead APPEALS MANAGER CT Final Resul t * (ABNORMAL) COMPREHENSIVE METABOLIC PANEL (03/24/2024 10:46 AM [facility]) [facility] GLUCOSE 110(H) 70 - 99 MG/DL 03/24/2024 11:23 AM [facility] BUN 9 7 - 18 MG/DL 03/24/2024 11:23 AM [facility] CREATININE S/P/B 0.79 0.55 - 1.02 MG/DL 03/24/2024 11:23 AM [facility] SODIUM S/P/B 138 136 - 145 MMOL/L 03/24/2024 11:23 AM [facility] POTASSIUM S/P/B 4.5 3.5 - 5.1 MMOL/L 03/24/2024 11:23 AM [facility] Comment:SLIGHT HEMOLYSIS, RE SULT MAY BE AFFECTED. CHLORIDE S/P/B 106 97 - 115 MMOL/L 03/24/2024 11:23 AM [facility] CO2 23.9 21 - 32 MMOL/L 03/24/2024 11:23 AM [facility] CALCIUM S/P/B 9.4 8.5 - 10.1 MG/DL 03/24/2024 11:23 AM [facility] BILIRUBIN TOTAL S/P/B 0.5 0.2 - 1.2 MG/DL 03/24/2024 11:23 AM [facility] Comment: THIS ASSAY IS NOT RECOMMENDED FOR PATIENTS UNDERGOING TREATMENT WITH ELTROMBOPAG DUE TO THE POTENTIAL FOR FALSELY ELEVATED RESULTS. TOTAL PROTEIN S/P/B 7.8 6.4 - 8.2 G/DL 03/24/2024 11:23 AM [facility] ALBUMIN S/P/B 3.3(L) 3.4 - 5.0 G/DL 03/24/2024 11:23 AM [facility] AST 117(H) 15 - 37 U/L 03/24/2024 11:23 AM [facility] Comment:SLIGHT HEMOLYSIS, RE SULT MAY BE AFFECTED. ALT 65(H) 14 - 55 U/L 03/24/2024 11:23 AM [facility] ALKALINE PHOSPHATASE S/P/B 71 50 - 136 U/L 03/24/2024 11:23 AM [facility] ANION GAP 8.1 2 - 10 MMOL/L 03/24/2024 11:23 AM [facility] BUN CREATININE RATIO 11.4 6 - 26 03/24/2024 11:23 AM [facility] A/G RATIO 0.7(L) 1.0 - 2.0 RATIO 03/24/2024 11:23 AM [facility] GFR ESTIMATE 83(L) >90 ML/MIN/1.7 3 M2 03/24/2024 11:23 AM [facility] Comment: NOTE: eGFR is not calculated for patients <18 years of age or gender unknown. This is an estimated GFR calculation using the new CKD EPI creatinine equation without race and so does not require a correction factor for race. This estimated GFR should not be used for calculating drug doses. 03/24/2024 10:4 6 AM PRODUCTION TOOL ENGINEER us Tamiko Whitehead APPEALS MANAGER LABORATORY Final Resul t [facility] [address] [place] [address], * CBC W/DIFF AUTOMATED (03/24/2024 10:46 AM PRODUCTION TOOL ENGINEER) WBC 6.56 4.5 - 11.0 x10'3/uL 03/24/2024 10:59 AM [facility] RBC 4.82 4.20 - 5.40 x10'6/uL 03/24/2024 10:59 AM [facility] HGB 14.3 12.0 - 16.0 G/DL 03/24/2024 10:59 AM [facility] HCT 42.5 38.0 - 48.0 % 03/24/2024 10:59 AM [facility] MCV 88.2 81.0 - 99.0 FL 03/24/2024 10:59 AM [facility] MCH 29.7 27.0 - 31.0 PG 03/24/2024 10:59 AM [facility] MCHC 33.6 32.0 - 36.0 G/DL 03/24/2024 10:59 AM [facility] RDW 12.6 11.5 - 14.5 % 03/24/2024 10:59 AM [facility] PLT 309 130 - 400 x10'3/uL 03/24/2024 10:59 AM [facility] MPV 9.3 9.3 - 12.2 FL 03/24/2024 10:59 AM [facility] DIFFERENTIAL TYPE AUTOMATED DIFFERENTIAL 03/24/2024 10:59 AM [facility] NEUTROPHILS % 48.4 % 03/24/2024 10:59 AM [facility] LYMPHOCYTES % 36.0 % 03/24/2024 10:59 AM [facility] MONOCYTES % 11.7 % 03/24/2024 10:59 AM [facility] EOSINOPHILS 3.2 % 03/24/2024 10:59 AM [facility] BASOPHILS 0.5 % 03/24/2024 10:59 AM [facility] IMMATURE GRANS % 0.2 % 03/24/20 10:59 AM PRODUCTION TOOL ENGINEER [facility] ABS. NEUTROPHILS 3.18 1.80 - 7.70 x10'3/uL 03/24/2024 10:59 AM [facility] ABS. LYMPHOCYTES 2.36 1.00 - 4.80 x10'3/uL 03/24/2024 10:59 AM [facility] ABS. MONOCYTES 0.77 0.24 - 0.86 x10'3/uL 03/24/2024 10:59 AM [facility] ABS. EOSINOPHILS 0.21 0.04 - 0.36 x10'3/uL 03/24/2024 10:59 AM [facility] ABS. BASOPHILS 0.03 0.01 - 0.08 x10'3/uL 03/24/2024 10:59 AM [facility] ABS. IMMATURE GRANULOCYTES 0.01 0.00 - 0.49 x10'3/uL 03/24/2024 10:59 AM [facility] 03/24/2024 10:4 6 AM [facility] Tamiko Whitehead [facility] Final Resul t [facility] [address] [place] [address], * TROPONIN, QUANT (03/24/2024 10:46 AM PRODUCTION TOOL ENGINEER) TROPONIN I HIGH SENSITIVITY 4 <54 ng/L 03/24/2024 11:23 AM [facility] Comment: HIGH DOSES OF BIOTIN, TROPONIN-SPECIFIC AUTOANTIBODIES, AND ANTIBODY THERAPY CONTAINING HAMA MAY INTERFERE WITH THIS TEST RESULT. CORRELATION TO CLINICAL HISTORY AND PRESENTATION RECOMMENDED. 03/24/2024 10:4 6 AM PRODUCTION TOOL ENGINEER Tamiko Whitehead APPEALS MANAGER LABORATORY Final Resul t [facility] [address] [place] [address], * ECG 12 lead (03/24/2024 10:43 AM PRODUCTION TOOL ENGINEER) Only the most recent of2 resultswithin the time period is included. 03/24/2024 10:4 3 AM PRODUCTION TOOL ENGINEER Narrative [facility] - 03/24/2024 1:30 PM PRODUCTION TOOL ENGINEER [address] Test Date: 2024-03-24 Pat Name: PATRICIA VELASQUEZ Department: 41 Room: Gender: Female Hospice Clinical Supervisor: [id number] : 1960 Requested By: TAMIKO WHITEHEAD Order Number: [id number] Reading MD: Benitez Kovacs Measurements Intervals [place] Rate: 87 P: 53 PA: 163 QRS: 24 QRSD: 88 T: 4 QT: 379 QTc: 458 Interpretive Statements SINUS RHYTHM WITH FREQUENT VENTRICULAR PREMATURE COMPLEXES ABNORMAL RHYTHM ECG Compared to ECG 03/24/2024 09:46:30 T-wave abnormality no longer present UCTION TOOL ENGINEER Procedure Note Benitez Kovacs MD - 03/24/[address] Test Date: 2024-03-24 Pat Name: PATRICIA VELASQUEZ Department: 41 Room: Gender: Female Hospice Clinical Supervisor: [id number] : 1960 Requested By: TAMIKO WHITEHEAD Order Number: [id number] Reading MD: Benitez Kovacs Measurements Intervals [place] Rate: 87 P: 53 PA: 163 QRS: 24 QRSD: 88 T: 4 QT: 379 QTc: 458 Interpretive Statements SINUS RHYTHM WITH FREQUENT VENTRICULAR PREMATURE COMPLEXES ABNORMAL RHYTHM ECG Compared to ECG 03/24/2024 09:46:30 T-wave abnormality no longer present UCTION TOOL ENGINEER us Tamiko Whitehead APPEALS MANAGER ECG ORDERABLES Final Resul t [facility] * MG DIAG W SYD RT DIGI (01/31/2024 9:09 AM CDT) Anatomical Region Laterality Modality Breast Right Mammography 01/31/2024 11:3 1 AM CDT Impressions 01/31/2024 11:41 AM CDT ===== IMPRESSION: ===== Multiple complicated cysts in the right breast as described with additional small hyperechoic mass with no worrisome characteristics. All lesions are probably benign. No worrisome findings to warrant biopsy at this time. Assessment: ACR BI-RADS CATEGORY 3 - PROBABLY BENIGN FINDING(S) Recommendation: 1: Follow-up diagnostic mammogram right in 6 months Ordered By: CARLY VILLAGOMEZ Interpreted By: Shashi Seay MD, 01/31/2024 11:31 AM Narrative 01/31/2024 11:41 AM CDT [facility] [address] [place] [address] Examination: Right breast 3-D diagnostic mammogram and Limited Ultrasound right breast. [id number] Exam Date/Time: 01/31/2024 10:44 AM Reason For Exam: 2 new palpable abnormalities in the right breast. Six-month follow-up for multiple benign appearing complicated cysts seen previously. Prior bilateral benign biopsies. No personal or family history of breast cancer. Personal history of uterine cancer. Comparison: Diagnostic mammogram and ultrasound 07/30/2023 Technique: Right-sided 3-D digital diagnostic mammography and Transcutaneous ultrasound evaluation of the areas of concern in the right breast is performed for analysis of grayscale and color Doppler imaging characteristics. Findings: Standard mammographic images and spot compression views of the palpable abnormalities in the right breast showed no suspicious interval change in overall appearance from prior exam. Multiple stable appearing rounded masses are again seen. Subsequent ultrasound evaluation was performed. At 11:00 position 4 cm the nipple is again seen a wider than tall rounded well-circumscribed hypoechoic lesion measuring 15 x 10 x 11 mm. Posterior acoustic enhancement and a well-defined posterior wall are noted. Internal echoes are seen without vascularity. This is a complicated cyst. No significant interval change from prior exam when allowing for technique differences in measurement. At 12:30 o'clock position 3.5 cm the nipple is again seen an 11 x 11 x 10 mm rounded hypoechoic lesion with immediately adjacent 10 x 7 x 10 mm lesion. Both have well-defined posterior borders, well-defined peripheral parmar, and some internal echoes with no internal vascularity. Overall appearance not significantly changed from prior study. At 2:00 position 6 cm from the nipple is a 9 x 8 x 10 mm wider than tall well-defined heterogeneously hypoechoic lesion with posterior acoustic enhancement. No internal vascularity. This is not significant change in overall appearance from prior study. Additional ultrasound evaluation is performed over the new areas of palpable abnormality, both located at the 12:00 position 5 cm from the nipple. There are 2 adjacent small hypoechoic lesions which are both wider than tall. The first measures 4 x 5 x 3 mm. The second measures 5 x 4 x 3 mm. Neither has worrisome posterior shadowing. Neither has internal vascularity. Neither appear to tether surrounding structures. 2 additional minimally complicated cysts. Instilling noted at 12:00 position 5 cm from the nipple nearby is a 5 x 3 x 3 mm hyperechoic lesion with no worrisome posterior shadowing. No internal vascularity. No tethering of surrounding structures. This is of uncertain etiology but likely benign. Carly Villagomez DIETETIC TECHNICIAN MAMMO Final Result * HEPATITIS C ANTIBODY (04/13/2019 2:42 PM PRODUCTION TOOL ENGINEER) HEPATITIS C AB NON-REACTI VE NON-REACTI VE 04/13/2019 9:15 PM PRODUCTION TOOL ENGINEER [facility] 04/13/2019 2:42 PM PRODUCTION TOOL ENGINEER us Ana Hood POWDER LINE REPAIRER LABORATORY Final Resu lt Performing Organization Address [facility] Co de Phone Number [facility] [address] [place] [address], * Colonoscopy (01/03/2010 12:00 AM CDT) 01/03/2010 01/03/2010 Narrative [facility] TO EPIC CONVERSION - 01/03/2010 12:00 AM CDT Documented hx of procedure Procedure Note Adela Cotter MD - 02/06/2018 Documented hx of procedure Generic Conversion Md COTTER GI PROCEDURE ORDERABLES Final Result Performing Organization Address [facility] Co de Phone Number [facility] TO EPIC CONVERSION from Last 3 Months or Most Recently Relevant to Health Maintenance Insurance Advance Directives * Full Code (Latest Code Status on File) Date Activated Date Inactivated Comments 02/21/2023 11:27 PM 02/23/2023 1:50 PM Care Teams Tugboat Pilot Relationship Specialty Start Date End Date Carly Villagomez NP [address] [place] [address] PCP - General Nurse Practitioner Family 11/02/16
--- OUTSIDE RECORDS SUMMARY | 2024-05-12 12:53 | XMS_ITS | Continuity of Care Document ---
Author Name [facility] Organization [facility] Care Team Providers Care Photograph Tinter Name Role Phone [facility] Unavailable Unavailable Procedures Combined list of: 1) Procedures from Department of Veterans Affairs facilities going back up to thelast 18 months, not all [place] non-surgical procedures are included; 2) All procedures from the Department of Defense facilities. Procedure Procedure Type Code Date Perfomer Comments Cameron elaine SECONDARY INSERTION OF INTRAOCULAR LENS PROSTHESIS 07/25/1992 [facility] MECHANICAL VITRECTOMY BY ANTERIOR APPROACH 07/25/1992 [facility] OTHER BILATERAL ENDOSCOPIC DESTRUCTION OR OCCLUSION OF FALLOPIAN TUBES 03/11/1988 [facility] OTHER PARTIAL BREECH EXTRACTION 12/26/1987 [facility] MONITORING, NOT OTHERWISE SPECIFIED 12/26/1987 [facility] OTHER MANUALLY ASSISTED DELIVERY 08/04/1985 [facility] EPISIOTOMY 08/04/1985 [facility] EKG (SCALP) 08/04/1985 [facility] REPAIR OF OTHER CURRENT OBSTETRIC LACERATION 08/04/1985 [facility] Social History Combined list of available smoking, tobacco, and other social history from Department of Defense and Veterans Affairs facilities. Social History Type Response Date Comment Cameron elaine This section is an empty social history section. [facility]
--- OUTSIDE RECORDS SUMMARY | 2024-05-12 12:53 | XMS_ITS | Encounter Summary ---
Author Organization [facility] Address [address] [place] [address] Care Team Providers Care Wall To Wall Carpet Installer Name Role Phone Carly Villagomez ALUMINUM POURER Primary Care Provider [phone] Encounter Details Date Type Department Care Team (Late st Contact Info) Description 02/17/2024 [employer] Sti[employer] Message Enc [facility] Medical Group Family and Sports Medicine - [place] [address] [place] [address] Carly Villagomez, ALUMINUM POURER [address] [place] [address] Uro-director of materials Social History Tobacco Use Types Packs/Day Years Used Date Smoking Tobacco: Never Smokeless Tobacco: Never Alcohol Use Standard Drinks/Week Comments Not Currently 0 (1 standard drink = 0.6 oz pure alcohol) twice a year, 2 glasses of wine [facility] Utilities Answer Date Recorded In the past 12 months has [facility] [employer], gas, oil, or water [employer] threatened to shut off services in your [...] Sex Assigned at Female 05/02/2024 10:36 AM ADULT PROTECTIVE CASEWORKER Legal Sex Female 7:53 PM CDT Gender [...] MEDICAL CENTER Medical Group Multispecialty Care - [facility] [address] [place] [address] Rene Sage DO [address] [facility] [address] [place] [address] 08/01/2024 12:30 PM CDT Appointment [facility]ammography [address] [address] Chay Marshall MD [address] [place] [phone] 08/01/2024 1:30 PM CDT Appointment [facility] [address] [facility] [place] [address] Chay Marshall MD [address] [facility] [address] [place], [place] [address] 09/26/2024 1:00 PM CDT Office Visit [facility] [address] [facility] [address] [place], [place] [address] Thien Cooper MD Three [facility]. [facility] [address] [place], [place] [address] documented as of this encounter Goals Goal Patient Goal Type Associated Problems Recent Progress Patient-Stated? Author Patient will return to prior living situation and remain independent in ADLs upon discharge from hospital Lifestyle No Andreea Thomas, COMMUNITY OUTREACH SPECIALIST documented as of this encounter Visit Diagnoses Not on filedocumented in this encounter Additional Health Concerns Assessment Noted Time PHQ-9 Depression Total Score: 18 024 10:47 AM ADULT PROTECTIVE CASEWORKER documented as of this encounter Care Teams Wall To Wall Carpet Installer Relationship Specialty Start Date End Date Carly Villagomez ALUMINUM POURER [address] [place] [address] PCP - General Nurse Practitioner Family 11/02/16 documented as of this encounter
--- OUTSIDE RECORDS SUMMARY | 2024-05-12 12:53 | XMS_ITS | Encounter Summary ---
Author Organization [facility] Address [address] [place] [address] Care Team Providers Care Clinical Biostatistician Name Role Phone HernandoCarly TRACY Primary Care Provider [phone] Encounter Details Date Type Department Care Team (Late st Contact Info) Description 02/24/2024 [employer] Message Enc [facility] THREE [address] [address] Thien Cooper MD [address] [phone] Letter Social History Tobacco Use Types Packs/Day Years Used Date Smoking Tobacco: Never Smokeless Tobacco: Never Alcohol Use Standard Drinks/Week Comments Not Currently 0 (1 standard drink = 0.6 oz pure alcohol) twice a year, 2 glasses of wine [facility] Utilities Answer Date Recorded In the past 12 months has [facility] electric, gas, oil, or water company threatened [...] place to sleep or slept in a usp (including now)? No 02/21/2023 Comments No Sex and Gender Information Value Date Recorded Sex Assigned at Female 05/02/2024 10:36 AM SOW FARM MANAGER Legal Sex Female 7:53 PM CDT [...] Description 07/10/2024 11:20 AM CDT Office Visit [facility] Medical Group Multispecialty Care - [facility] [address] [place] [address] Rene Sage DO [address] [facility] [address] [place] [address] 08/01/2024 12:[address] [facility]ammography [address] [place], [place] [phone] Chay Marshall MD [address] [place] [address] 08/01/2024 1:30 PM CDT Appointment [facility] [place] [address] Chay Marshall MD [address] [facility] [address] [place], [place] [address] 09/26/2024 1:00 PM CDT Office Visit [facility] [address] [facility], [facility] [address] [place], [place] [phone] Thien Cooper MD [facility] [address] [place], [place] [address] documented as of this encounter Goals Goal Patient Goal Type Associated Problems Recent Progress Patient-Stated? Author Patient will return to prior living situation and remain independent in ADLs upon discharge from hospital Lifestyle No Andreea Thomas, OPERATOR TECHNICIAN documented as of this encounter Visit Diagnoses Not on filedocumented in this encounter Additional Health Concerns Assessment Noted Time PHQ-9 Depression Total Score: 18 024 10:47 AM SOW FARM MANAGER documented as of this encounter Care Teams Clinical Biostatistician Relationship Specialty Start Date End Date Carly Villagomez KINESEOLOGIST [address] [place] [address] PCP - General Nurse Practitioner Family 11/02/16 documented as of this encounter
--- OUTSIDE RECORDS SUMMARY | 2024-05-12 12:53 | XMS_ITS | Clinical Summary ---
Author Organization [facility] Address [address], [address] [place] [address] Phone Care Team Providers Care Personnel Scheduler Name Role Phone Carly Villagomez APN Primary Care Provider + Carly Villagomez APN Unavailable + Ruben, Shay D DO Unavailable [phone] Ruben, Shay D DO Unavailable [phone] Allergies Active Allergy Reactions Criticality Noted Date Comments Amitriptyline Diarrhea,Unknown Medium 08/25/2012 Other reaction(s): GI Upset Carbamazepine Unknown,Vomiting Low 08/25/2012 Reaction: Vomiting, Nisoldipine Unknown 07/06/2022 Pravastatin Other (see Comments),Shortness of Breath,Unknown High 08/25/2012 Reaction: Chest Pain, Sulfa Antibiotics Unknown,Other (see Comments) 08/25/2012 Yeast infection Tramadol Unknown 03/06/2022 Trazodone Other (see Comments),Unknown,Vomi ting Low 08/25/2012 Reaction: Other Reaction: Confusion, Headache, Vomiting, Venlafaxine Nausea,Unknown,Vomit in g Low 08/25/2012 Reaction: Nausea, Medications Multiple Vitamin (Multivitamins) Capsule Take 1 Capsule by mouth. Active calcium-magnesi um-zinc 333-133-5 MG Tablet Take 1 Tablet by mouth nightly. Active latanoprost (XALATAN) 0.005 % Solution INSTILL 1 DROP IN BOTH EYES AT BEDTIME 12/02/2021 Active Craig-3 Fatty Acids (KP Fish Oil) 1200 MG Capsule Take 1 Capsule by mouth. Active ezetimibe (ZETIA) 10 MG Tablet 1 tablet Active furosemide (LASIX) 20 MG Tablet 1 tablet Active nitroGLYCERIN (NITROSTAT) 0.4 MG SL Tablet Active rosuvastatin (CRESTOR) 40 MG Tablet 1 tablet Active ergocalciferol (VITAMIN D) 47460 UNIT Capsule TAKE 1 CAPSULE BY MOUTH WEEKLY 05/14/2022 Active levothyroxine (SYNTHROID) 88 MCG Tablet 07/13/2022 Active potassium chloride SA (KLORCON M) 10 MEQ Tablet Controlled Release 09/07/2022 Active primidone (MYSOLINE) 50 MG Tablet 10/13/2022 Active propranolol (INDERAL) 40 MG Tablet Take 40 mg by mouth 3 times daily. Active Eliquis 5 MG Tablet 02/23/2023 Active fluorometholone (FML) 0.1 % Suspension SHAKE LIQUID AND INSTILL 1 DROP IN BOTH EYES TWICE DAILY FOR 2 WEEKS 09/09/2023 Active tamoxifen citrate 20 MG TabletIndicatio ns:Endometrial cancer (HCC) TAKE 2 TABLETS BY MOUTH DAILY 60 Tablet 2 01/18/2024 Active Xiidra 5 % Solution Place 1 Drop in affected eye(s). 12/08/2023 Active Atogepant 10 MG Tablet Take 10 mg by mouth daily. 12/23/2023 Active baclofen (LIORESAL) 10 MG Tablet Take 10 mg by mouth. 12/23/2023 Active dilTIAZem (CARDIZEM CD) 120 MG CAPSULE SR 24 HR Take 120 mg by mouth. 11/29/2023 Active loratadine (CLARITIN) 10 MG Tablet Take 10 mg by mouth daily. 12/01/2023 Active predniSONE (DELTASONE) 5 MG Tablet Take 5 mg by mouth. 12/23/2023 Active DULoxetine (CYMBALTA) [address] Particles 1 Capsule. 08/17/2023 Active lamoTRIgine (LAMICTAL) 150 MG Tablet Take 150 mg by mouth 2 times daily. 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 Encounters Date Type Department Care Team Description 05/12/2024 Telephone [facility] [address] [address] Shay Miranda, DO from Last 3 Months Immunizations Immunization Administration Dates Next Due Covid-19, Mrna, Lnp-s, PF, 5 0 mcg/0.25 mL dose (Moderna) 05/20/2021 Influenza Vaccine 02/09/2016,03/06/2015 Influenza Vaccine, MDCK,quad rivalent, pres free 02/09/2019 Influenza Vaccine, Quadrivalent, PF 05/20/2021,0 12/12/2019,12/28/2017 Influenza, Seasonal, Injectable, Undefined 02/16,01/09/2014,01/02/2013 Pneumococcal conjugate PCV20 , polysaccharide [id number] conjugate, adjuvant, PF 07/13/2022 TDAP Vaccine 12/12/2019 Zoster Vaccine Recombinant 10/31/2020,02/27/2020 Family History Medical History Relation Name Comments Diabetes Brother Multiple Sclerosis Brother Heart Disease Father Relation Name Status Comments Brother Father Social History Tobacco Use Types Packs/Day Years [...] Sign Reading Time Taken Comments Blood Pressure 132/80 02/01/2024 1:00 PM CDT Pulse 95 02/01/2024 1:00 PM CDT Temperature 36.6 C (97.8 F) 02/01/2024 1:00 PM CDT Respiratory Rate 18 02/01/2024 1:00 PM CDT Oxygen Saturation 97% 02/01/2024 1:00 PM CDT Inhaled Oxygen Concentration - - Weight 114.9 kg (253 lb 6.4 oz) 02/01/2024 1:00 PM CDT Height 160 cm (5' 3 ) 02/01/2024 1:00 PM CDT Body Mass Index 44.89 02/01/2024 1:00 PM CDT Plan of Treatment Upcoming Encounters Date Type Department Care Team (Late st Contact Info) Description 05/15/2024 8:30 AM LEAD MINER Ancillary Procedure [facility] [address] [address] 05/16/2024 1:15 PM LEAD MINER Office Visit [facility] [address] [address] Shay Miranda, [address] [place] [address] Health Maintenance Due Date Last Done Comments Cologuard 06/06/2009 Immunochemical Fecal Occult Blood 06/06/2009 Respiratory Syncytial Virus (RSV) Immunization (Adult) (1 - Risk 60-74 years 1-dose series) 2019 Colonoscopy 01/04/2020 01/03/2010 Colorectal Cancer Screening 01/04/2020 SARS-COV-2 Immunization (5 - Mixed Product risk season) 2024 12/15/2023, 01/20/2023, 05/20/2021, Additional history exists Mammogram 01/30/2026 01/31/2024, 04/09/2023, 07/30/2023, Additional history exists Td Immunization Every 10 Years (Adults With 1 Tdap) 12/11/2029 12/12/2019 01/03/2010 Hepatitis C Virus (HCV) Screening Completed 04/13/2019 DTaP/Tdap/Td Immunization Discontinued 12/12/2019 Zoster Immunization Completed 10/31/2020, 0 Pneumococcal Immunization (50+ years) Completed 07/13/2022 Pneumococcal Immunization Combined Discontinued 07/13/2022 Influenza Immunization Completed 4, 01/20/2023, 05/20/2021, Additional history exists Hepatitis B Immunization Aged Out No longer eligible based on patient's age to complete this topic Meningococcal Immunization (ACWY) Aged Out No longer eligible based on patient's age to complete this topic Rotavirus Immunization Aged Out No lo nger eligible based on patient's age to complete this topic Insurance [facility] Member Subscriber Plan / Payer (Ef fective 2021-Present) Name:Zeeshan Patricia Chemo Relation to Subscriber:Spouse Name:DIEGO VELASQUEZ Date of :1959 (Home) Address: [address] [place] [id number] Payer ID:[id number] Group ID:[id number] Type:PPO Address: [facility] [id number] [place] [phone] Care Teams Personnel Scheduler Relationship Specialty Start Date End Date Carly Villagomez APN [address] [place] [address] PCP - General Advanced Practice Nurse 01/08/22 Carly Villagomez APN [address] [place] [address] Advanced Practice Nurse 01/08/22 Shay Miranda DO [address] [place] [address] Consulting Physician Oncology 01/07/22 Shay Miranda DO [address] [place] [address] Consulting Physician Oncology 01/08/22
--- OUTSIDE RECORDS SUMMARY | 2024-05-12 12:53 | XMS_ITS | Encounter Summary ---
Author Organization [facility] Address [address] [place] [address] Care Team Providers Care Real Estate Teacher Name Role Phone Carly Villagomez BALANCE AND HAIRSPRING ASSEMBLER Primary Care Provider [phone] Encounter Details Date Type Department Care Team (Late st Contact Info) Description 04/02/2019 Solsticet Message Enc [facility] Family and Sports Medicine - [place] [address] [place] [address] Carly Villagomez, BALANCE AND HAIRSPRING ASSEMBLER [address] [place] [address] RE: Follow Up/Update Social History Tobacco Use Types Packs/Day Years Used Date Smoking Tobacco: Never Smokeless Tobacco: Never Alcohol Use Standard Drinks/Week Comments No 0 (1 standard drink = 0.6 oz pur e alcohol) AUDIT-C Answer Date Recorded Frequency of Alcohol Consumption Never 06/27/2018 Average Number of Drinks Not on file 019 Frequency of Binge Drinking Not on file 06/04 Comments Unknown Sex and Gender Information Value Date Recorded Sex Assigned at Female 05/02/2024 10:36 AM MORTAR CARRIER Legal Sex Female 7:53 PM CDT Gender Identity Not on file Sexual Orientation Not on file documented as of this encounter Plan of Treatment Upcoming Encounters Date Type Department Care Team (Late st Contact Info) Description 07/10/2024 11:20 AM CDT Office Visit [facility] [address] [place] [address] Rene Sage DO [address] [place] [address] 08/01/2024 12:30 PM CDT Appointment [facility] [place] [address] Chay Marshall MD [address] [address] 08/01/2024 1:30 PM CDT Appointment [facility] ONE [facility] [place] [address] Chay Marshall MD [facility] [address] 09/26/2024 1:00 PM CDT Office Visit [facility] [address] [place], [place] [address] Thien Cooper MD Three [facility]. [address] [id number] documented as of this encounter Visit Diagnoses Not on filedocumented in this encounter Additional Health Concerns Infection Onset Date Last Indicated Resolved Time COVID-19 Rule Out 01/26/2022 01/26/2022 01/26/2022 3:05 PM CDT COVID-19 Rule Out 01/26/2022 01/26/2022 01/27/2022 6:32 PM CDT COVID-19 Rule Out 08/25/2022 08/25/2022 08/26/2022 3:43 PM CDT COVID-19 Confirmed 08/25/2022 09/01/2022 3 12:32 AM CDT documented as of this encounter Care Teams Real Estate Teacher Relationship Specialty Start Date End Date Carly Villagomez NP [address] [place] [address] PCP - General Nurse Practitioner Family 11/02/16 documented as of this encounter
--- OUTSIDE RECORDS SUMMARY | 2024-05-12 12:53 | XMS_ITS | Encounter Summary ---
Author Organization [facility] Address [address] [place] [address] Care Team Providers Care White Washer Piler Name Role Phone Carly Villagomez FINISHER SPECIAL STOCKS Primary Care Provider [phone] Encounter Details Date Type Department Care Team (Late st Contact Info) Description 01/31/2024 XGrapht Message Enc [facility] Family and Sports Medicine - [place] [address] [place] [address] Carly Villagomez, FINISHER SPECIAL STOCKS [address] [place] [address] Is someone there? Social History Tobacco Use Types Packs/Day Years Used Date Smoking Tobacco: Never Smokeless Tobacco: Never Alcohol Use Standard Drinks/Week Comments Not Currently 0 (1 standard drink = 0.6 oz pure alcohol) twice a year, 2 glasses of wine [facility] Utilities Answer Date Recorded In the past 12 months has [facility] ethology, gas, oil, or water Evino threatened to shut off services in your [...] Sex Assigned at Female 05/02/2024 10:36 AM PRECISION LATHE OPERATOR Legal Sex Female 7:53 PM CDT Gender [...] Description 07/10/2024 11:20 AM CDT Office Visit [facility] - [facility] [address] [place] [address] Rene Sage DO [address] [facility] [address] [place] [address] 08/01/2024 12:30 PM CDT Appointment [facility] [address] [facility] [address] Chay Marshall MD [address] [place] [address] 08/01/2024 1:30 PM CDT Appointment [facility] ONE [facility] [place] [address] Chay Marshall MD [address] [facility] [address] [place], [place] [address] 09/26/2024 1:00 PM CDT Office Visit [facility] THREE [facility] [address] [place], [place] [phone] Thien Cooper MD Three [facility]. [facility] [address] [place], [place] [address] documented as of this encounter Goals Goal Patient Goal Type Associated Problems Recent Progress Patient-Stated? Author Patient will return to prior living situation and remain independent in ADLs upon discharge from hospital Lifestyle No Andreea Thomas, GLASS CUTTER documented as of this encounter Visit Diagnoses Not on filedocumented in this encounter Additional Health Concerns Assessment Noted Time PHQ-9 Depression Total Score: 11 023 4:03 PM CDT documented as of this encounter Care Teams White Washer Piler Relationship Specialty Start Date End Date Carly Villagomez NP [address] [place] [address] PCP - General Nurse Practitioner Family 11/02/16 documented as of this encounter
--- OUTSIDE RECORDS SUMMARY | 2024-05-12 12:53 | XMS_ITS | Encounter Summary ---
Author Organization [facility] Address [address] [place] [address] Phone Care Team Providers Care Nurses' Association Counselor Name Role Phone Carly Villagomez APN Primary Care Provider [phone] Carly Villagomez APN Unavailable Shay Miranda DO Unavailable [phone] Shay Miranda DO Unavailable [phone] Encounter Details Date Type Department Care Team (Late Contact Info) Description 05/12/2024 Telephone [facility] [place] [address] [place] [address] Shay Miranda DO [address] [place] [address] Social History Tobacco Use Types Packs/Day Years [...] Department Care Team (Late Contact Info) Description 05/15/2024 8:30 AM SALES TECHNICIAN HOME THEATER Ancillary Procedure [facility] [address] [address] 05/16/2024 1:15 PM SALES TECHNICIAN HOME THEATER Office Visit [facility] [address] [address] Shay Miranda DO [address] [place] [address] documented as of this encounter Visit Diagnoses Not on filedocumented in this encounter Additional Health Concerns Assessment Noted Time PHQ-9 Depression Total Score: 14 023 10:45 AM SALES TECHNICIAN HOME THEATER documented as of this encounter Care Teams Nurses' Association Counselor Relationship Specialty Start Date End Date Carly Villagomez APN [address] [place] [address] PCP - General Advanced Practice Nurse 01/08/22 Carly Villagomez APN [address] [place] [address] Advanced Practice Nurse 01/08/22 Shay Miranda DO [address] [place] [phone] Consulting Physician Oncology 01/07/22 Shay Miranda DO [address] [place] [address] Consulting Physician Oncology 01/08/22 documented as of this encounter
--- OUTSIDE RECORDS SUMMARY | 2024-05-12 12:53 | XMS_ITS ---
Author Organization [facility] Address [facility] [place] [address] Care Team Providers Care Manufacturers Representative Name Role Phone Carly Villagomez RADIAL DRILL PRESS OPERATOR Primary Care Provider [phone] Active Problems Patient Care Coordination No te Formatting of this note migh t be different from the original. 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 07/20/2019 Endometrial cancer ([facility]) 09/09/2017 Overview (08/12/2020): Added automatically from request for surgery [id number] Arteriosclerosis of carotid artery, bilateral [place] on CPAP 06/26/2016 Morbid obesity ([facility]) 01/21/2016 Edema 09/04/2013 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 Don psychiatry - on cymotel. 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 Past Plans No past plan information found. Radiation Treatments * Plan Last Treated On Elapsed Days Fractions Treated Prescribed Fraction Dose Prescribed Total Dose LT Pelvis 11/11/2022 5 of 5 RIGHT Lung 09/25/2022 5 of 5 Reference Point Last Treated On Elapsed Days Session Dose Total Dose LT Pelvis 11/11/2022 35 RIGHT Lung 09/25/2022 50 Resolved Problems Problem Noted Date Diagnosed Date [...]
--- OUTSIDE RECORDS SUMMARY | 2024-05-12 12:53 | XMS_ITS | Encounter Summary ---
Author Organization [facility] Address [address] [place] [address] Care Team Providers Care Sas Etl Developer Name Role Phone Carly Villagomez STORAGE FACILITY HOUSEKEEPER Primary Care Provider [phone] Encounter Details Date Type Department Care Team (Late st Contact Info) Description 03/12/2019 RentHop Message Enc [facility] Family and Sports Medicine - [place] [address] [place] [address] Carly Villagomez, STORAGE FACILITY HOUSEKEEPER [address] [place] [address] RE: Question Social History Tobacco Use Types [...] Sex Assigned at Female 05/02/2024 10:36 AM DOCTOR OF PHARMACY Legal Sex Female 7:53 PM CDT Gender Identity Not on file Sexual Orientation Not on file documented as of this encounter Progress Notes * Dory Guillaume MA - 03/13/2019 8:46 AM CST 07-11-2018 was her last thyroid test, please advise OR OF PHARMACY documented in this encounter Plan of Treatment Upcoming Encounters Date Type Department Care Team (Late st Contact Info) Description 07/10/2024 11:20 AM CDT Office Visit [facility] [address] [place] [address] Rene Sage DO [address] [place] [address] 08/01/2024 12:30 PM CDT Appointment [facility] [place] [address] Chay Marshall MD [address] [facility] [address] [place], [place] [address] 08/01/2024 1:30 PM CDT Appointment [facility] [address] [facility] [place] [address] Chay Marshall MD [address] [facility] [address] [place], [place] [address] 09/26/2024 1:00 PM CDT Office Visit [facility] [address] [place], [place] [address] Thien Cooper MD Three [facility] [address] [place], [place] [address] documented as of this encounter Visit Diagnoses [...] documented as of this encounter Care Teams Sas Etl Developer Relationship Specialty Start Date End Date Carly Villagomez NP [address] [place] [address] PCP - General Nurse Practitioner Family 11/02/16 documented as of this encounter
--- OUTSIDE RECORDS SUMMARY | 2024-05-12 12:53 | XMS_ITS | Encounter Summary ---
Author Organization [facility] Address [address] [place] [address] Care Team Providers Care Emergency Technician Name Role Phone Carly Villagomez NP Primary Care Provider [phone] Encounter Details Date Type Department Care Team (Late st Contact Info) Description 05/08/2019 MyCKettot Message Enc [facility] Family and Sports Medicine - [place] [address] [place] [address] Carly Villagomez, PIPE FITTER STREET SERVICE [address] [place] [address] RE: Follow Up/Update Social History Tobacco Use [...] Sex Assigned at Female 05/02/2024 10:36 AM PREFORM PLATE MAKER Legal Sex Female 7:53 PM CDT Gender Identity Not on file Sexual Orientation Not on file documented as of this encounter Progress Notes * Carly Villagomez NP - 05/10/2019 9:23 AM CST Can you call and set up a peer to peer for me please ORM PLATE MAKER * Dory Guillaume MA - 05/10/2019 9:09 AM CST Please advise ORM PLATE MAKER * Dory Guillaume MA - 05/09/2019 7:58 AM CST FYI ORM PLATE MAKER documented in this encounter Plan of Treatment Upcoming Encounters Date Type Department Care Team (Late st Contact Info) Description 07/10/2024 11:20 AM CDT Office Visit [facility] Care - [facility] [address] [facility] [address] [place] [address] Rene Sage DO [address] [facility] [address] [place] [address] 08/01/2024 12:30 PM CDT Appointment [facility] [address] [facility] [place] [address] Chay Marshall MD [facility] [address] 08/01/2024 1:30 PM CDT Appointment [facility] [address] [facility] [place] [place] [address] Chay Marshall MD [facility] [address] [address] 09/26/2024 1:00 PM CDT Office Visit [facility] [address] [place] [address] Thien Cooper MD [facility]. [address] [address] documented as of this encounter Visit Diagnoses [...] documented as of this encounter Care Teams Emergency Technician Relationship Specialty Start Date End Date Carly Villagomez NP [address] [place] [address] PCP - General Nurse Practitioner Family 11/02/16 documented as of this encounter
== END 2024-05-12 12:43 | disposition home or self-care (01) ==
LOC: ANHIMG 12:46
PROVIDERS: PCP Nurse Practitioner Family; Visit Provider Obstetrics & Gynecology Gynecology
DX: Z78.0 Asymptomatic menopausal state (principal)
CPT/HCPCS: 77080